=== PATIENT | female | born 1935 | race Caucasian/White ===

== ENCOUNTER 2017-03-22 13:43 | Emergency (ER) | payer MEDICARE, OTHER ==
[2017-03-22] MEDS ORDERED: Sodium Chloride 0.9% 10 ML Syringe FLUSH PRN (14:05)
[2017-03-22] MEDS ORDERED: Sodium Chloride 0.9% 500 ML IV ONE (14:11)
--- NOTE | 2017-03-22 15:36 | CR ---
Chest: Portable view of the chest was obtained. Comparison: Previous chest x-ray of 08/08/16. Bilateral shoulder prosthesis are seen. Heart size and mediastinum are normal. Lungs are clear with no acute infiltrates. Impression: 1. Incidental findings. Nothing acute is identified on portable chest x-ray. Diagnostic code #2
--- NOTE | 2017-03-22 15:36 | CT ---
Head CT Technique: Multiple axial sections through the brain were obtained. Intravenous contrast was not utilized. Comparison: Previous MRI brain dated 10/26/[address] study of 08/08/16 is also available. Findings: Ventricles along with basal cisterns and sulci over the convexities appear within normal limits for the patient's age. Old lacunar infarct is again noted within the right basal ganglia. No other abnormal parenchymal densities are seen. No evidence of intracranial hemorrhage. No midline shift or mass effect is seen. Bone window settings were reviewed which shows the visualized sinuses to appear clear. No acute calvarial abnormality is appreciated. Impression: 1. Old lacunar infarct which is stable from prior studies within the right basal ganglia. 2. No acute intracranial abnormality is appreciated. Diagnostic code #2
--- NOTE | 2017-03-22 17:15 | EDM.PDOC ---
ED HPI GENERAL MEDICAL PROBLEM - General Chief Complaint: Neuro Symptoms/Deficits Stated Complaint: CONFUSED Time Seen by Provider: 03/22/17 13:58 Source of Information: Reports: Patient, Family, RN Notes Reviewed - History of Present Illness INITIAL COMMENTS - FREE TEXT/NARRATIVE: 81 year old female brought in by family today for evaluation of "altered mental status" She does have hx of alzheimer's disease and also of a TIA this past spring several months ago. Today when family came to check on her this morning about 4 hours ago she was less alert, more of a blank stare than usual, would answer questions but would take her longer to do that and speech "not as spontaneous as usual" The patient herself has no concerns or awareness of anything being wrong today. No chest pain, abd pain, dyspnea, nausea, [place] or other sx that she is aware of. There has been no focal weakness, no expressive aphasia, speech is clear, just not as spontaneous as usual. Headache Pain Score (Numeric/FACES): 3 - Related Data Allergies Allergy/AdvReac Type Severity Reaction Status Date / Time dexamethasone [From TobraDex] Allergy Mild Cannot Verified 03/22/17 13:58 Remember tobramycin [From TobraDex] Allergy Mild Cannot Verified 03/22/17 13:58 Remember amlodipine besylate AdvReac Mild Muscle Verified 03/22/17 13:58 [From Lotrel] Weakness benazepril HCl [From Lotrel] AdvReac Mild Muscle Verified 03/22/17 13:58 Weakness ezetimibe [From Zetia] AdvReac Mild Muscle Verified 03/22/17 13:58 Weakness pravastatin sodium AdvReac Mild Muscle Verified 03/22/17 13:58 [From Pravachol] Weakness rosuvastatin calcium AdvReac Mild Muscle Verified 03/22/17 13:58 [From Crestor] Weakness simvastatin [From Zocor] AdvReac Mild Muscle Verified 03/22/17 13:58 Weakness Home Meds: Home Meds Calcium Carbonate [Calcium] 2 tab PO DAILY 05/05/15 [History] Donepezil [Aricept] 5 mg PO BEDTIME 05/05/15 [History] Hydrochlorothiazide 12.5 mg PO DAILY 05/05/15 [History] Multivitamins 1 tab PO DAILY 05/05/15 [History] metFORMIN [Glucophage] 1,000 mg PO BIDMEALS 05/05/15 [History] Sertraline [Zoloft] 50 mg PO DAILY tablet 05/07/15 [Rx] Aspirin 1 tab PO BID 08/08/16 [History] Losartan [Cozaar] 25 mg PO DAILY 08/08/16 [History] Meloxicam [Mobic] 15 mg PO BID PRN 08/08/16 [History] Metoprolol Succinate [Toprol XL] 50 mg PO BID 08/08/16 [History] Past Medical History HEENT History: Reports: Cataract, Impaired Vision Other HEENT History: 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 Cardiovascular History: Reports: Afib, Hypertension Other Cardiovascular History: pt famly reports that afib occured 27 years ago and has not had a problem since. Other Respiratory History: Positive Orthopnea - Moderate snoring Gastrointestinal History: Reports: Diverticulosis Other Gastrointestinal History: diverticulosis Musculoskeletal History: Reports: Osteoarthritis (hands, shoulders) Neurological History: Reports: Other (See Below) Psychiatric History: Reports: Dementia Endocrine/Metabolic History: Reports: Diabetes, Type II Oncologic (Cancer) History: Reports: Breast - Past Surgical History HEENT Surgical History: Reports: Cataract Surgery Musculoskeletal Surgical History: Reports: Shoulder Replacement Oncologic Surgical History: Reports: Mastectomy Social & Family History - Family History Family Medical History: Noncontributory - Tobacco Use Smoking Status *Q: Never Smoker Years of Tobacco use: 2 Used Tobacco, but Quit: No Second Hand Smoke Exposure: No - Caffeine Use Caffeine Use: Reports: Coffee - Alcohol Use Days Per Week of Alcohol Use: 1 Number of Drinks Per Day: 1 Total Drinks Per Week: 1 - Recreational Drug Use Recreational Drug Use: No - Living Situation & Occupation Living situation: Reports: , Alone Occupation: Retired ED ROS GENERAL - Review of Systems Review Of Systems: See Below Constitutional: Reports: Fatigue. Denies: Fever, Chills HEENT: Denies: Throat Pain Respiratory: Denies: Shortness of Breath, Pleuritic Chest Pain, Cough Cardiovascular: Denies: Chest Pain GI/Abdominal: Denies: Abdominal Pain, Diarrhea, Nausea, Vomiting : Reports: No Symptoms Musculoskeletal: Denies: Back Pain Skin: Reports: No Symptoms Neurological: Reports: Change in Speech (speech less spontaneous than usual). Denies: Dizziness, Headache, Numbness, Tingling, Trouble Speaking, Difficulty Walking, Weakness ED EXAM, NEURO - Physical Exam Exam: See Below General Appearance: Alert, No Apparent Distress Eye Exam: Bilateral Eye: PERRL Throat/Mouth: Normal Inspection, Normal Oropharynx Head Exam: Atraumatic. No: Facial Swelling Neck: Supple, Full Range of Motion, Other (no JVD) Respiratory/Chest: No Respiratory Distress, Lungs Clear, Normal Breath Sounds Cardiovascular: Regular Rate, Rhythm GI/Abdominal: Soft, Non-Tender. No: Guarding, Rebound Neurological: Alert, No Motor/Sensory Deficits (no focal weakness, no facial droop), Other (manager long term care memory is good, short term memory mildly impaired, speech is spontaneous here in the ED, answering simple questions appropriate, speech is not slurred, easy to understand) Extremities: Normal Inspection, Normal Range of Motion. No: Pedal Edema, Leg Pain Skin Exam: Warm, Dry, Normal Color, No Rash EKG INTERPRETATION EKG Date: 03/22/17 Rhythm: NSR [place]: Normal P-Wave: Present QRS: Normal ST-T: Normal Course - Vital Signs Last Recorded V/S: Last Vital Signs Temp 98.5 F 03/22/17 13:50 Pulse 84 03/22/17 17:25 Resp 16 03/22/17 17:25 BP 165/69 H 03/22/17 17:25 Pulse Ox 94 L 03/22/17 17:25 - Orders/Labs/Meds Orders: Active Orders 24 hr Category Date Time Status EKG 12 Lead [EKG Documentation Completion] [RC] STAT Care 03/22/17 14:06 Active Insert Coulter Catheter [Insert Urinary Catheter] [OM.PC] Care 03/22/17 15:35 Ordered Stat POC Glucose [Blood Glucose Check, Bedside] [RC] ONETIME Care 03/22/17 14:06 Active Peripheral IV Care [RC] . DIRECTED Care 03/22/17 14:07 Active Urinary Catheter Assessment [RC] ASDIRECTED Care 03/22/17 15:35 Active Sodium Chloride 0.9% [Saline Flush] Med 03/22/17 14:05 Active 10 ml FLUSH ASDIRECTED PRN Peripheral IV Insertion Adult [OM.PC] Stat Oth 03/22/17 14:07 Ordered Medication Orders Sodium Chloride (Saline Flush) 10 ml FLUSH ASDIRECTED PRN PRN Reason: Keep Vein Open Last Admin: 03/22/17 15:05 Dose: 10 ml Labs: Laboratory Tests 03/22/17 03/22/17 03/22/17 Range/Units 14:12 14:12 14:12 WBC 6.76 (3.98-10.04) K/mm3 RBC 3.76 L (3.98-5.22) M/mm3 Hgb 11.0 L (11.2-15.7) gm/L Hct 33.1 L (34.1-44.9) % MCV 88.0 (79.4-94.8) fl MCH 29.3 (25.6-32.2) pg MCHC 33.2 (32.2-35.5) g/dl RDW Std Deviation 42.3 (36.4-46.3) fL Plt Count 368 (182-369) K/mm3 MPV 8.1 L (9.4-12.3) fl Neut % (Auto) 75.1 H (34.0-71.1) % Lymph % (Auto) 16.3 L (19.3-51.7) % [place] % (Auto) 7.7 (4.7-12.5) % Eos % (Auto) 0.3 L (0.7-5.8) Baso % (Auto) 0.3 (0.1-1.2) % Neut # (Auto) 5.08 (1.56-6.13) K/mm3 Lymph # (Auto) 1.10 L (1.18-3.74) K/mm3 [place] # (Auto) 0.52 H (0.24-0.36) K/mm3 Eos # (Auto) 0.02 L (0.04-0.36) K/mm3 Baso # (Auto) 0.02 (0.01-0.08) K/mm3 Sodium 133 L (136-145) mEq/L Potassium 3.7 (3.5-5.1) mEq/L Chloride 95 L (98-107) mEq/L Carbon Dioxide 29 (21-32) mEq/L Anion Gap 12.7 (5-15) BUN 21 H (7-18) mg/dL Creatinine 1.2 H (0.55-1.02) mg/dL Est Cr Clr Drug Dosing TNP Estimated GFR (MDRD) 43 (>60) mL/min BUN/Creatinine Ratio 17.5 (14-18) Glucose 134 H (83-115) mg/dL POC Glucose 124 H (83-110) mg/dL Calcium 9.9 (8.5-10.1) mg/dL Total Bilirubin 0.6 (0.2-1.0) mg/dL AST 20 (15-37) U/L ALT 23 (14-59) U/L Alkaline Phosphatase 50 (46-116) U/L Troponin I < 0.017 (0.00-0.056) ng/mL Total Protein 7.4 (6.4-8.2) g/dl Albumin 4.0 (3.4-5.0) g/dl Globulin 3.4 gm/dL Albumin/Globulin Ratio 1.2 (1-2) Urine Color (Yellow) Urine Appearance (Clear) Urine pH (5.0-8.0) Ur Specific [place] (1.005-1.030) Urine Protein (Negative) Urine Glucose (UA) (Negative) Urine Ketones (Negative) Urine Occult Blood (Negative) Urine Nitrite (Negative) Urine Bilirubin (Negative) Urine Urobilinogen (0.2-1.0) Ur Leukocyte Esterase (Negative) Urine RBC (0-5) /hpf Urine WBC (0-5) /hpf Ur Epithelial Cells (0-5) /hpf Urine Bacteria (FEW) /hpf Hyaline Casts (0-5) /lpf Urine Mucus (FEW) /hpf 03/22/17 Range/Units 15:40 WBC (3.98-10.04) K/mm3 RBC (3.98-5.22) M/mm3 Hgb (11.2-15.7) gm/L Hct (34.1-44.9) % MCV (79.4-94.8) fl MCH (25.6-32.2) pg MCHC (32.2-35.5) g/dl RDW Std Deviation (36.4-46.3) fL Plt Count (182-369) K/mm3 MPV (9.4-12.3) fl Neut % (Auto) (34.0-71.1) % Lymph % (Auto) (19.3-51.7) % [place] % (Auto) (4.7-12.5) % Eos % (Auto) (0.7-5.8) Baso % (Auto) (0.1-1.2) % Neut # (Auto) (1.56-6.13) K/mm3 Lymph # (Auto) (1.18-3.74) K/mm3 [place] # (Auto) (0.24-0.36) K/mm3 Eos # (Auto) (0.04-0.36) K/mm3 Baso # (Auto) (0.01-0.08) K/mm3 Sodium (136-145) mEq/L Potassium (3.5-5.1) mEq/L Chloride (98-107) mEq/L Carbon Dioxide (21-32) mEq/L Anion Gap (5-15) BUN (7-18) mg/dL Creatinine (0.55-1.02) mg/dL Est Cr Clr Drug Dosing Estimated GFR (MDRD) (>60) mL/min BUN/Creatinine Ratio (14-18) Glucose (83-115) mg/dL POC Glucose (83-110) mg/dL Calcium (8.5-10.1) mg/dL Total Bilirubin (0.2-1.0) mg/dL AST (15-37) U/L ALT (14-59) U/L Alkaline Phosphatase (46-116) U/L Troponin I (0.00-0.056) ng/mL Total Protein (6.4-8.2) g/dl Albumin (3.4-5.0) g/dl Globulin gm/dL Albumin/Globulin Ratio (1-2) Urine Color Yellow (Yellow) Urine Appearance Clear (Clear) Urine pH 6.0 (5.0-8.0) Ur Specific [place] 1.025 (1.005-1.030) Urine Protein Negative (Negative) Urine Glucose (UA) Negative (Negative) Urine Ketones Negative (Negative) Urine Occult Blood Negative (Negative) Urine Nitrite Negative (Negative) Urine Bilirubin Negative (Negative) Urine Urobilinogen 0.2 (0.2-1.0) Ur Leukocyte Esterase Negative (Negative) Urine RBC 0-5 (0-5) /hpf Urine WBC Not seen (0-5) /hpf Ur Epithelial Cells 0-5 (0-5) /hpf Urine Bacteria Not seen (FEW) /hpf Hyaline Casts 0-5 (0-5) /lpf Urine Mucus Not seen (FEW) /hpf Meds: Medications Generic Name Dose Route Start Last Admin Trade Name Frerahul PRN Reason Stop Dose Admin Sodium Chloride 10 ml 03/22/17 14:05 03/22/17 15:05 Saline Flush FLUSH 10 ml ASDIRECTED PRN Administration Keep Vein Open Discontinued Medications Generic Name Dose Route Start Last Admin Trade Name Nadir PRN Reason Stop Dose Admin Sodium Chloride 500 mls @ 999 mls/hr 03/22/17 14:11 03/22/17 15:09 Normal Saline IV 03/22/17 14:41 999 mls/hr .BOLUS ONE Administration - Re-Assessments/Exams Free Text/Narrative Re-Assessment/Exam: 03/22/17 17:[address], old lacunar visible present on prior studies, see Radiology report for details. labs are good, hgb 11, improved from 10 post op shoulder surgery a few wks ago. She is not currently taking pain pills. No other new meds to account for current sx. We did check a cath Ua to check for UTI and that was good. At time of discharge and even at time of initial eval her speech was quite good and spontaneous. Not clear if she did suffer very mild TIA or maybe just having an off day or morning in terms of her Alzheimer's disease. I am not going to make any adjustments to her meds at this time. she already is taking aspirin 81 mg twice daily. Discharge instr. as documented. Departure - Departure Time of Disposition: 17:13 Disposition: Home, Self-Care 01 Clinical Impression: Altered mental status Qualifiers: Altered mental status type: unspecified Qualified Code(s): R41.82 - Altered mental status, unspecified - Discharge Information Instructions: Confusion Referrals: Matthew Rodriguez MD [Primary Care Provider] - Forms: ED Department Discharge Additional Instructions: continue current medications for now, drink plenty of water to maintain good hydration, see Dr Craven as soon as possible this week for recheck, further treatment as needed, return to ED if symptoms worsening in any way. - My Orders Last 24 Hours: My Active Orders 03/22/17 14:05 Sodium Chloride 0.9% [Saline Flush] 10 ml FLUSH ASDIRECTED PRN 03/22/17 14:06 EKG 12 Lead [EKG Documentation Completion] [RC] STAT POC Glucose [Blood Glucose Check, Bedside] [RC] ONETIME 03/22/17 14:07 Peripheral IV Care [RC] . DIRECTED Peripheral IV Insertion Adult [OM.PC] Stat 03/22/17 15:35 Insert Coulter Catheter [Insert Urinary Catheter] [OM.PC] Stat Urinary Catheter Assessment [RC] ASDIRECTED - Assessment/Plan Last 24 Hours: My Active Orders 03/22/17 14:05 Sodium Chloride 0.9% [Saline Flush] 10 ml FLUSH ASDIRECTED PRN 03/22/17 14:06 EKG 12 Lead [EKG Documentation Completion] [RC] STAT POC Glucose [Blood Glucose Check, Bedside] [RC] ONETIME 03/22/17 14:07 Peripheral IV Care [RC] . DIRECTED Peripheral IV Insertion Adult [OM.PC] Stat 03/22/17 15:35 Insert Coulter Catheter [Insert Urinary Catheter] [OM.PC] Stat Urinary Catheter Assessment [RC] ASDIRECTED
[2017-03-22 17:31] VITALS: BP 165/69
== END 2017-03-22 17:25 | disposition home or self-care (01) ==
LOC: JD.ED 13:43
DX: R41.82 Altered mental status, unspecified (principal); I10 Essential (primary) hypertension; I48.91 Unspecified atrial fibrillation; M19.042 Primary osteoarthritis, left hand; M19.041 Primary osteoarthritis, right hand; M19.012 Primary osteoarthritis, left shoulder; M19.011 Primary osteoarthritis, right shoulder; F03.90 Unspecified dementia, unspecified severity, without behavioral disturbance, psychotic disturbance, mood disturbance, and anxiety; E11.9 Type 2 diabetes mellitus without complications; Z85.3 Personal history of malignant neoplasm of breast; Z98.49 Cataract extraction status, unspecified eye; Z96.612 Presence of left artificial shoulder joint; Z90.10 Acquired absence of unspecified breast and nipple; Z79.84 Long term (current) use of oral hypoglycemic drugs; Z79.899 Other long term (current) drug therapy; Z88.8 Allergy status to other drugs, medicaments and biological substances; Z88.1 Allergy status to other antibiotic agents
CPT/HCPCS: 36415; 70450; 71010; 80053; 81001; 82962; 84484; 85025; 93005; 96360; 99285; J7040; J7050; P9612; 99284

== ENCOUNTER 2017-11-10 14:08 | Emergency (ER) | payer MEDICARE, OTHER ==
[2017-11-10 14:19] VITALS: BP 152/68
--- NOTE | 2017-11-10 15:14 | CT ---
Head CT Technique: Multiple axial sections through the brain were obtained. Intravenous contrast was not utilized. Comparison: Prior head CT exam of 03/22/17. Findings: Ventricles along with basal cisterns and sulci over convexities are mildly prominent. Diminished density is noted within the periventricular white matter compatible with small vessel ischemic demyelination change. Old lacunar infarcts are noted within the basal ganglia on both sides. No other abnormal parenchymal densities are seen. No evidence of intracranial hemorrhage. No midline shift or mass effect is seen. Atherosclerotic calcification is seen within the carotid siphon. Bone window settings were reviewed which shows the visualized sinuses to appear clear. No acute calvarial abnormality is identified. Impression: 1. Senescent change as noted above. 2. No acute intracranial abnormality is identified on noncontrast head CT exam. Diagnostic code #2
--- NOTE | 2017-11-10 16:03 | EDM.PDOC ---
ED HPI GENERAL MEDICAL PROBLEM - General Chief Complaint: Neurological Problem Stated Complaint: CONFUSION Time Seen by Provider: 11/10/17 14:30 Source of Information: Reports: Patient, Family, RN Notes Reviewed - History of Present Illness INITIAL COMMENTS - FREE TEXT/NARRATIVE: 82-year-old female comes in with symptoms of confusion. Family state that she is been sending out text messages today that just haven't made any sense. He seems much more confused than usual. She does live alone, family members and others do check on her very frequently. When someone went to check on her earlier today she did not respond to a text message to open her door. She is very hard of hearing so does do a lot of her normal communication with "texting ". On arrival to ED she continues to be somewhat confused. She does answer simple questions, cooperative with exam. She denies chest or abdominal pain. There is no report of recent vomiting or diarrhea. No recent report of cough fever or chills. - Related Data Allergies Allergy/AdvReac Type Severity Reaction Status Date / Time dexamethasone [From TobraDex] Allergy Mild Cannot Verified 11/10/17 14:19 Remember tobramycin [From TobraDex] Allergy Mild Cannot Verified 11/10/17 14:19 Remember amlodipine besylate AdvReac Mild Muscle Verified 11/10/17 14:19 [From Lotrel] Weakness benazepril HCl [From Lotrel] AdvReac Mild Muscle Verified 11/10/17 14:19 Weakness ezetimibe [From Zetia] AdvReac Mild Muscle Verified 11/10/17 14:19 Weakness pravastatin sodium AdvReac Mild Muscle Verified 11/10/17 14:19 [From Pravachol] Weakness rosuvastatin calcium AdvReac Mild Muscle Verified 11/10/17 14:19 [From Crestor] Weakness simvastatin [From Zocor] AdvReac Mild Muscle Verified 11/10/17 14:19 Weakness Home Meds: Home Meds Calcium Carbonate [Calcium] 2 tab PO DAILY 05/05/15 [History] Donepezil [Aricept] 5 mg PO BEDTIME 05/05/15 [History] Hydrochlorothiazide 12.5 mg PO DAILY 05/05/15 [History] Multivitamins 1 tab PO DAILY 05/05/15 [History] metFORMIN [Glucophage] 1,000 mg PO BIDMEALS 05/05/15 [History] Sertraline [Zoloft] 50 mg PO DAILY tablet 05/07/15 [Rx] Aspirin 1 tab PO BID 08/08/16 [History] Losartan [Cozaar] 25 mg PO DAILY 08/08/16 [History] Meloxicam [Mobic] 15 mg PO BID PRN 08/08/16 [History] Metoprolol Succinate [Toprol XL] 50 mg PO BID 08/08/16 [History] Ascorbic Acid [Acerola C] 500 mg PO DAILY 11/10/17 [History] Ciprofloxacin HCl [Cipro] 500 mg PO BID #14 tablet 11/10/17 [Rx] Clopidogrel Bisulfate [Plavix] 75 mg PO DAILY 11/10/17 [History] Past Medical History HEENT History: Reports: Cataract, Impaired Vision Other HEENT History: 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 Cardiovascular History: Reports: Afib, Hypertension Other Cardiovascular History: pt famly reports that afib occured 27 years ago and has not had a problem since. Other Respiratory History: Positive Orthopnea - Moderate snoring Gastrointestinal History: Reports: Diverticulosis Other Gastrointestinal History: diverticulosis Musculoskeletal History: Reports: Osteoarthritis (hands, shoulders) Neurological History: Reports: Other (See Below) Psychiatric History: Reports: Dementia Endocrine/Metabolic History: Reports: Diabetes, Type II Oncologic (Cancer) History: Reports: Breast - Past Surgical History HEENT Surgical History: Reports: Cataract Surgery Musculoskeletal Surgical History: Reports: Shoulder Replacement Oncologic Surgical History: Reports: Mastectomy Social & Family History - Family History Family Medical History: Noncontributory - Tobacco Use Smoking Status *Q: Never Smoker Years of Tobacco use: 2 Used Tobacco, but Quit: No Second Hand Smoke Exposure: No - Caffeine Use Caffeine Use: Reports: None - Alcohol Use Days Per Week of Alcohol Use: 1 Number of Drinks Per Day: 1 Total Drinks Per Week: 1 - Recreational Drug Use Recreational Drug Use: No - Living Situation & Occupation Living situation: Reports: , Alone Occupation: Retired ED ROS GENERAL - Review of Systems Review Of Systems: See Below Constitutional: Denies: Fever, Chills HEENT: Denies: Throat Pain Respiratory: Denies: Shortness of Breath, Cough Cardiovascular: Denies: Chest Pain GI/Abdominal: Denies: Abdominal Pain, Diarrhea, Nausea, Vomiting Musculoskeletal: Denies: Back Pain Neurological: Reports: Confusion. Denies: Trouble Speaking, Weakness - Physical Exam Exam: See Below General Appearance: No Apparent Distress Eye Exam: Bilateral Eye: PERRL Throat/Mouth: Normal Inspection, Normal Oropharynx Head Exam: Atraumatic. No: Facial Swelling Neck: Supple, Full Range of Motion Respiratory/Chest: No Respiratory Distress, Lungs Clear, Normal Breath Sounds Cardiovascular: Regular Rate, Rhythm GI/Abdominal: Soft, Non-Tender. No: Guarding Neuro Exam (Abbreviated): Alert, No Motor/Sensory Deficits, Confused (Mild to moderate confusion, she does obey simple commands, she can state the name of her children and she does know where she is at but has no idea for date, month, or year. She cannot tell me her birthdate at time of my exam. She is not been very talkative while here in the ED which children state is also "unusual for her ".) Course - Vital Signs Last Recorded V/S: Last Vital Signs Temp 99.4 F 11/10/17 14:15 Pulse 79 11/10/17 14:15 Resp 18 11/10/17 14:15 BP 152/68 H 11/10/17 14:15 Pulse Ox 93 L 11/10/17 14:15 - Orders/Labs/Meds Orders: Active Orders 24 hr Category Date Time Status EKG 12 Lead [EKG Documentation Completion] [RC] STAT Care 11/10/17 14:51 Active Labs: Laboratory Tests 11/10/17 11/10/17 11/10/17 Range/Units 15:07 15:07 15:35 WBC 10.73 H (3.98-10.04) K/mm3 RBC 4.41 (3.98-5.22) M/mm3 Hgb 12.8 (11.2-15.7) gm/L Hct 38.0 (34.1-44.9) % MCV 86.2 (79.4-94.8) fl MCH 29.0 (25.6-32.2) pg MCHC 33.7 (32.2-35.5) g/dl RDW Std Deviation 40.0 (36.4-46.3) fL Plt Count 271 (182-369) K/mm3 MPV 8.5 L (9.4-12.3) fl Neut % (Auto) 85.8 H (34.0-71.1) % Lymph % (Auto) 8.9 L (19.3-51.7) % [place] % (Auto) 4.9 (4.7-12.5) % Eos % (Auto) 0 L (0.7-5.8) Baso % (Auto) 0.1 (0.1-1.2) % Neut # (Auto) 9.21 H (1.56-6.13) K/mm3 Lymph # (Auto) 0.95 L (1.18-3.74) K/mm3 [place] # (Auto) 0.53 H (0.24-0.36) K/mm3 Eos # (Auto) 0.00 L (0.04-0.36) K/mm3 Baso # (Auto) 0.01 (0.01-0.08) K/mm3 Manual Slide Review Abnormal smear Sodium 137 (136-145) mEq/L Potassium 4.0 (3.5-5.1) mEq/L Chloride 98 (98-107) mEq/L Carbon Dioxide 27 (21-32) mEq/L Anion Gap 16.0 H (5-15) BUN 18 (7-18) mg/dL Creatinine 1.2 H (0.55-1.02) mg/dL Est Cr Clr Drug Dosing 29.57 mL/min Estimated GFR (MDRD) 43 (>60) mL/min BUN/Creatinine Ratio 15.0 (14-18) Glucose 134 H (83-115) mg/dL Calcium 10.0 (8.5-10.1) mg/dL Total Bilirubin 0.8 (0.2-1.0) mg/dL AST 23 (15-37) U/L ALT 27 (14-59) U/L Alkaline Phosphatase 50 (46-116) U/L Total Protein 7.5 (6.4-8.2) g/dl Albumin 4.2 (3.4-5.0) g/dl Globulin 3.3 gm/dL Albumin/Globulin Ratio 1.3 (1-2) Urine Color Dark yellow (Yellow) Urine Appearance Slt cloudy H (Clear) Urine pH 6.0 (5.0-8.0) Ur Specific [place] > or = 1.030 (1.005-1.030) Urine Protein 1+ H (Negative) Urine Glucose (UA) Negative (Negative) Urine Ketones Negative (Negative) Urine Occult Blood Negative (Negative) Urine Nitrite Negative (Negative) Urine Bilirubin Negative (Negative) Urine Urobilinogen 0.2 (0.2-1.0) Ur Leukocyte Esterase 1+ H (Negative) Urine RBC 0-5 (0-5) /hpf Urine WBC 0-5 (0-5) /hpf Ur Epithelial Cells 0-5 (0-5) /hpf Urine Bacteria Few (FEW) /hpf Urine Mucus Few (FEW) /hpf - Re-Assessments/Exams Free Text/Narrative Re-Assessment/Exam: 11/10/17 16:19. Confusion she presented with initially about 1-1/2-2 hours ago is gone. Family states that she is back to baseline. She can now tell me her birthdate. More spontaneous with her speech. Labs show what appears to be a mild UTI, leukocyte positive on the dipstick. We'll treat with Cipro 500 mg twice a day for 1 week. Family states that there is mild baseline confusion that they are aware of. Discharge instructions as documented. Departure - Departure Time of Disposition: 16:17 Disposition: Home, Self-Care 01 Condition: Fair Clinical Impression: Confusion UTI (urinary tract infection) Qualifiers: Urinary tract infection type: acute cystitis Hematuria presence: without hematuria Qualified Code(s): N30.00 - Acute cystitis without hematuria - Discharge Information Prescriptions: Ciprofloxacin HCl [Cipro] 500 mg PO BID #14 tablet Referrals: Matthew Rodriguez MD [Primary Care Provider] - Forms: ED Department Discharge Additional Instructions: Drink plenty of water, Cipro antibiotic 500 mg twice daily for 1 week, continue other current medications as prescribed, follow-up clinic as needed if symptoms not continuing to resolve as expected, return to ED as needed if symptoms worsening in any way. - My Orders Last 24 Hours: My Active Orders 11/10/17 14:51 EKG 12 Lead [EKG Documentation Completion] [RC] STAT - Assessment/Plan Last 24 Hours: My Active Orders 11/10/17 14:51 EKG 12 Lead [EKG Documentation Completion] [RC] STAT
== END 2017-11-10 16:25 | disposition home or self-care (01) ==
LOC: JD.ED 14:08
DX: R41.0 Disorientation, unspecified (principal); N30.00 Acute cystitis without hematuria; I10 Essential (primary) hypertension; E11.9 Type 2 diabetes mellitus without complications; I48.91 Unspecified atrial fibrillation; Z88.8 Allergy status to other drugs, medicaments and biological substances; Z88.1 Allergy status to other antibiotic agents; Z79.899 Other long term (current) drug therapy; Z79.84 Long term (current) use of oral hypoglycemic drugs; Z79.82 Long term (current) use of aspirin
CPT/HCPCS: 36415; 70450; 70450-26; 80053; 81001; 85025; 93005; 99283; 99285-25

== ENCOUNTER 2018-02-01 11:34 | Inpatient (IN) | payer MEDICARE, OTHER ==
--- NOTE | 2018-02-01 11:53 | EDM.PDOC ---
ED HPI GENERAL MEDICAL PROBLEM - General Chief Complaint: Neuro Symptoms/Deficits Stated Complaint: HEADACHE,CONFUSION Time Seen by Provider: 02/01/18 11:50 Source of Information: Reports: Patient, Family History Limitations: Reports: Altered Mental Status - History of Present Illness INITIAL COMMENTS - FREE TEXT/NARRATIVE: The patient is an 82-year-old female with a history of prior TIA at which time major symptom was aphasia, and also hypertension who presents with confusion this morning. She was last completely normal last evening. Daughter states that her neighbors were concerned that she seemed confused this morning so called her. She also felt like her mother seemed disoriented and so brought her to the emergency department. The patient was complaining of a headache at home prior to coming into the emergency department. She otherwise had no specific complaint. Daughter states that she just seemed confused about the day and what was going on. While in the emergency department in triage, the patient had an acute episode of aphasia and a stroke alert was called. At the time that I evaluated the patient she was not able to speak which limits the history. - Related Data Allergies Allergy/AdvReac Type Severity Reaction Status Date / Time dexamethasone [From TobraDex] Allergy Mild Cannot Verified 02/01/18 17:30 Remember tobramycin [From TobraDex] Allergy Mild Cannot Verified 02/01/18 17:30 Remember amlodipine besylate AdvReac Mild Muscle Verified 02/01/18 17:30 [From Lotrel] Weakness benazepril HCl [From Lotrel] AdvReac Mild Muscle Verified 02/01/18 17:30 Weakness ezetimibe [From Zetia] AdvReac Mild Muscle Verified 02/01/18 17:30 Weakness pravastatin sodium AdvReac Mild Muscle Verified 02/01/18 17:30 [From Pravachol] Weakness rosuvastatin calcium AdvReac Mild Muscle Verified 02/01/18 17:30 [From Crestor] Weakness simvastatin [From Zocor] AdvReac Mild Muscle Verified 02/01/18 17:30 Weakness Home Meds: Home Meds Calcium Carbonate [Calcium] 2 tab PO DAILY 05/05/15 [History] Donepezil [Aricept] 5 mg PO BEDTIME 05/05/15 [History] Hydrochlorothiazide 12.5 mg PO DAILY 05/05/15 [History] Multivitamins 1 tab PO DAILY 05/05/15 [History] metFORMIN [Glucophage] 1,000 mg PO BIDMEALS 05/05/15 [History] Sertraline [Zoloft] 50 mg PO DAILY tablet 05/07/15 [Rx] Losartan [Cozaar] 25 mg PO DAILY 08/08/16 [History] Metoprolol Succinate [Toprol XL] 50 mg PO BID 08/08/16 [History] Ascorbic Acid [Acerola C] 500 mg PO DAILY 11/10/17 [History] Clopidogrel Bisulfate [Plavix] 75 mg PO DAILY 11/10/17 [History] Past Medical History HEENT History: Reports: Cataract, Impaired Vision Other HEENT History: 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 Cardiovascular History: Reports: Afib, Hypertension Other Cardiovascular History: pt famly reports that afib occured 27 years ago and has not had a problem since. Respiratory History: Reports: Other (See Below) Other Respiratory History: Positive Orthopnea - Moderate snoring Gastrointestinal History: Reports: Diverticulosis Other Gastrointestinal History: diverticulosis RN HOME HEALTH History: Reports: Musculoskeletal History: Reports: Osteoarthritis Neurological History: Reports: TIA Psychiatric History: Reports: Dementia Endocrine/Metabolic History: Reports: Diabetes, Type II Oncologic (Cancer) History: Reports: Breast - Past Surgical History HEENT Surgical History: Reports: Cataract Surgery Respiratory Surgical History: Reports: None GI Surgical History: Reports: None Musculoskeletal Surgical History: Reports: Shoulder Replacement Oncologic Surgical History: Reports: Mastectomy Social & Family History - Family History Family Medical History: Noncontributory - Caffeine Use Caffeine Use: Reports: None - Living Situation & Occupation Living situation: Reports: , Alone Occupation: Retired ED ROS GENERAL - Review of Systems Review Of Systems: See Below Constitutional: Reports: Weakness. Denies: Fever HEENT: Denies: Vision Change Respiratory: Denies: Shortness of Breath Cardiovascular: Denies: Chest Pain Endocrine: Reports: No Symptoms GI/Abdominal: Denies: Abdominal Pain : Denies: Dysuria Musculoskeletal: Reports: No Symptoms Skin: Reports: No Symptoms Neurological: Reports: Confusion, Trouble Speaking Psychiatric: Reports: No Symptoms Hematologic/Lymphatic: Reports: No Symptoms ED EXAM, NEURO - Physical Exam Exam: See Below Exam Limited By: No Limitations General Appearance: Alert, WD/WN, No Apparent Distress Eye Exam: Bilateral Eye: Normal Inspection, PERRL Ears: Normal External Exam Nose: Normal Inspection, Normal Mucosa, No Blood Throat/Mouth: Normal Inspection, Normal Teeth, Normal Oropharynx, Normal Voice, No Airway Compromise Head Exam: Atraumatic, Normocephalic Neck: Normal Inspection, Supple, Non-Tender, Full Range of Motion Respiratory/Chest: No Respiratory Distress, Lungs Clear, Normal Breath Sounds, Chest Non-Tender Cardiovascular: Normal Peripheral Pulses, Regular Rate, Rhythm, No Edema, No Murmur GI/Abdominal: Soft, Non-Tender, No Distention. No: Rebound Neurological: Alert, Normal Mood/Affect, Normal Dorsiflexion, CN II-XII Intact, Normal Plantar Flexion, No Motor/Sensory Deficits, Other (+aphasia/not answering questions, appears to understand what I ask but doesn't respond. maintains eye contact but doesn't speak. continues to follow commands. ) Back Exam: Normal Inspection Extremities: Normal Inspection Psychiatric: Normal Affect, Normal Mood Skin Exam: Warm, Dry, Intact, Normal Color, No Rash Course - Vital Signs Last Recorded V/S: Last Vital Signs Temp 37.1 C 02/01/18 16:20 Pulse 73 02/01/18 11:40 Resp 17 02/01/18 17:01 BP 156/83 H 02/01/18 17:01 Pulse Ox 97 02/01/18 17:04 - Orders/Labs/Meds Orders: Active Orders 24 hr Category Date Time Status Peripheral IV Care [RC] Q2HR Care 02/01/18 11:50 Active Echo Comp wo Cont [US] Stat Exams 02/01/18 14:44 Ordered UA W/MICROSCOPIC [URIN] Stat Lab 02/01/18 17:10 Ordered Sodium Chloride 0.9% [Saline Flush] Med 02/01/18 11:50 Active 10 ml FLUSH ASDIRECTED PRN Peripheral IV Insertion Adult [OM.PC] Routine Oth 02/01/18 11:50 Ordered Medication Orders Acetaminophen (Tylenol) 650 mg PO Q4H PRN PRN Reason: Pain (Mild 1-3)/fever Hydrocodone Bitart/Acetaminophen ([place] 325-5 Mg) 1 tab PO Q4H PRN PRN Reason: Pain (moderate 4-6) Albuterol/Ipratropium (Duoneb 3.0-0.5 Mg/3 Ml) 3 ml NEB Q4H PRN PRN Reason: Shortness Of Breath/wheezing Ascorbic Acid (Vitamin C) 500 mg PO DAILY [facility] Aspirin (Halfprin) 81 mg PO BID [facility] Bisacodyl (Dulcolax) 5 mg PO DAILY PRN PRN Reason: Constipation Calcium Carbonate/Glycine (Calcium Carbonate) 1,200 mg PO DAILY [facility] Clopidogrel Bisulfate (Plavix) 75 mg PO DAILY [facility] Docusate Sodium (Colace) 100 mg PO BID PRN PRN Reason: Constipation Donepezil HCl (Aricept) 5 mg PO BEDTIME [facility] Enoxaparin Sodium (Lovenox) 30 mg SUBCUT Q24H [facility] Hydralazine HCl (Apresoline) 20 mg IVPUSH ONETIME PRN PRN Reason: Hypertension Hydrochlorothiazide (Hydrochlorothiazide) 12.5 mg PO DAILY [facility] Last Admin: 02/01/18 17:46 Dose: Hydromorphone HCl (Dilaudid) 0.25 mg IVPUSH Q2H PRN PRN Reason: Pain (severe 7-10) Promethazine HCl 6.25 mg/ (Sodium Chloride) 50.25 mls @ 100 mls/hr IV Q6H PRN PRN Reason: Nausea/Vomiting Insulin Aspart (Novolog) 0 unit SUBCUT QIDACANDBED [facility]; Protocol Losartan Potassium (Cozaar) 25 mg PO DAILY [facility] Last Admin: 02/01/18 17:45 Dose: Magnesium Hydroxide (Milk Of Magnesia) 30 ml PO Q12H PRN PRN Reason: Constipation Magnesium Sulfate (Pharmacy To Dose - Magnesium Replacement) 1 dose .XX ASDIRECTED [facility] Metformin HCl (Glucophage) 1,000 mg PO BIDMEALS [facility] Metoprolol Succinate (Toprol Xl) 50 mg PO BID [facility] Multivitamins (Thera) 1 each PO DAILY [facility] Non-Formulary Medication (Meloxicam) 15 mg PO BID PRN PRN Reason: Pain Polyethylene Glycol (Miralax) 17 gm PO DAILY PRN PRN Reason: Constipation Promethazine HCl (Phenergan) 25 mg PO Q6H PRN PRN Reason: Nausea/Vomiting Senna/Docusate Sodium (Senna Plus) 1 tab PO BID PRN PRN Reason: Constipation Sertraline HCl (Zoloft) 50 mg PO DAILY [facility] Sodium Chloride (Saline Flush) 10 ml FLUSH ASDIRECTED PRN PRN Reason: Keep Vein Open Last Admin: 02/01/18 13:23 Dose: 10 ml Temazepam (Restoril) 7.5 mg PO BEDTIME PRN PRN Reason: Sleep Labs: Laboratory Tests 02/01/18 02/01/18 02/01/18 Range/Units 11:44 12:15 12:15 WBC 10.33 H (3.98-10.04) K/mm3 RBC 4.28 (3.98-5.22) M/mm3 Hgb 12.5 (11.2-15.7) gm/L Hct 36.7 (34.1-44.9) % MCV 85.7 (79.4-94.8) fl MCH 29.2 (25.6-32.2) pg MCHC 34.1 (32.2-35.5) g/dl RDW Std Deviation 39.8 (36.4-46.3) fL Plt Count 271 (182-369) K/mm3 MPV 8.4 L (9.4-12.3) fl Neut % (Auto) 82.2 H (34.0-71.1) % Lymph % (Auto) 11.0 L (19.3-51.7) % [place] % (Auto) 6.5 (4.7-12.5) % Eos % (Auto) 0 L (0.7-5.8) Baso % (Auto) 0.1 (0.1-1.2) % Neut # (Auto) 8.49 H (1.56-6.13) K/mm3 Lymph # (Auto) 1.14 L (1.18-3.74) K/mm3 Daw[place] # (Auto) 0.67 H (0.24-0.36) K/mm3 Eos # (Auto) 0.00 L (0.04-0.36) K/mm3 Baso # (Auto) 0.01 (0.01-0.08) K/mm3 PT 10.4 (9.5-12.1) SECONDS INR 0.95 Sodium (136-145) mEq/L Potassium (3.5-5.1) mEq/L Chloride (98-107) mEq/L Carbon Dioxide (21-32) mEq/L Anion Gap (5-15) BUN (7-18) mg/dL Creatinine (0.55-1.02) mg/dL Est Cr Clr Drug Dosing mL/min Estimated GFR (MDRD) (>60) mL/min BUN/Creatinine Ratio (14-18) Glucose (83-115) mg/dL POC Glucose 111 H (83-110) mg/dL Calcium (8.5-10.1) mg/dL Magnesium (1.8-2.4) mg/dl Total Bilirubin (0.2-1.0) mg/dL AST (15-37) U/L ALT (14-59) U/L Alkaline Phosphatase (46-116) U/L Troponin I (0.00-0.056) ng/mL Total Protein (6.4-8.2) g/dl Albumin (3.4-5.0) g/dl Globulin gm/dL Albumin/Globulin Ratio (1-2) 02/01/18 Range/Units 12:15 WBC (3.98-10.04) K/mm3 RBC (3.98-5.22) M/mm3 Hgb (11.2-15.7) gm/L Hct (34.1-44.9) % MCV (79.4-94.8) fl MCH (25.6-32.2) pg MCHC (32.2-35.5) g/dl RDW Std Deviation (36.4-46.3) fL Plt Count (182-369) K/mm3 MPV (9.4-12.3) fl Neut % (Auto) (34.0-71.1) % Lymph % (Auto) (19.3-51.7) % Daw[place] % (Auto) (4.7-12.5) % Eos % (Auto) (0.7-5.8) Baso % (Auto) (0.1-1.2) % Neut # (Auto) (1.56-6.13) K/mm3 Lymph # (Auto) (1.18-3.74) K/mm3 [place] # (Auto) (0.24-0.36) K/mm3 Eos # (Auto) (0.04-0.36) K/mm3 Baso # (Auto) (0.01-0.08) K/mm3 PT (9.5-12.1) SECONDS INR Sodium 133 L (136-145) mEq/L Potassium 4.3 (3.5-5.1) mEq/L Chloride 95 L (98-107) mEq/L Carbon Dioxide 29 (21-32) mEq/L Anion Gap 13.3 (5-15) BUN 13 (7-18) mg/dL Creatinine 1.1 H (0.55-1.02) mg/dL Est Cr Clr Drug Dosing 35.22 mL/min Estimated GFR (MDRD) 48 (>60) mL/min BUN/Creatinine Ratio 11.8 L (14-18) Glucose 118 H (83-115) mg/dL POC Glucose (83-110) mg/dL Calcium 9.8 (8.5-10.1) mg/dL Magnesium 1.3 L (1.8-2.4) mg/dl Total Bilirubin 1.1 H (0.2-1.0) mg/dL AST 20 (15-37) U/L ALT 25 (14-59) U/L Alkaline Phosphatase 50 (46-116) U/L Troponin I < 0.017 (0.00-0.056) ng/mL Total Protein 7.4 (6.4-8.2) g/dl Albumin 4.0 (3.4-5.0) g/dl Globulin 3.4 gm/dL Albumin/Globulin Ratio 1.2 (1-2) Meds: Medications Generic Name Dose Route Start Last Admin Trade Name Freq PRN Reason Stop Dose Admin Acetaminophen 650 mg 02/01/18 17:03 Tylenol PO Q4H PRN Pain (Mild 1-3)/fever Hydrocodone Bitart/Acetaminophen 1 tab 02/01/18 17:03 [place] 325-5 Mg PO Q4H PRN Pain (moderate 4-6) Albuterol/Ipratropium 3 ml 02/01/18 17:03 Duoneb 3.0-0.5 Mg/3 Ml NEB Q4H PRN Shortness Of Breath/wheezing Ascorbic Acid 500 mg 02/02/18 09:00 Vitamin C PO DAILY [facility] Aspirin 81 mg 02/01/18 21:00 Halfprin PO BID [facility] Bisacodyl 5 mg 02/01/18 17:03 Dulcolax PO DAILY PRN Constipation Calcium Carbonate/Glycine 1,200 mg 02/02/18 09:00 Calcium Carbonate PO DAILY [facility] Clopidogrel Bisulfate 75 mg 02/02/18 09:00 Plavix PO DAILY [facility] Docusate Sodium 100 mg 02/01/18 17:03 Colace PO BID PRN Constipation Donepezil HCl 5 mg 02/02/18 21:00 Aricept PO BEDTIME [facility] Enoxaparin Sodium 30 mg 02/02/18 09:00 Lovenox SUBCUT Q24H [facility] Hydralazine HCl 20 mg 02/01/18 17:43 Apresoline IVPUSH ONETIME PRN Hypertension Hydrochlorothiazide 12.5 mg 02/01/18 17:30 02/01/18 17:46 Hydrochlorothiazide PO Not Given DAILY [facility] Hydromorphone HCl 0.25 mg 02/01/18 17:03 Dilaudid IVPUSH Q2H PRN Pain (severe 7-10) Promethazine HCl 6.25 mg/ 50.25 mls @ 100 mls/hr 02/01/18 17:03 Sodium Chloride IV Q6H PRN Nausea/Vomiting Insulin Aspart 0 unit 02/01/18 22:00 Novolog SUBCUT QIDACANDBED [facility] Protocol Losartan Potassium 25 mg 02/01/18 17:30 02/01/18 17:45 Cozaar PO Not Given DAILY [facility] Magnesium Hydroxide 30 ml 02/01/18 17:03 Milk Of Magnesia PO Q12H PRN Constipation Magnesium Sulfate 1 dose 02/01/18 18:00 Pharmacy To Dose - Magnesium Replacement .XX ASDIRECTED [facility] Metformin HCl 1,000 mg 02/02/18 07:00 Glucophage PO BIDMEALS [facility] Metoprolol Succinate 50 mg 02/01/18 21:00 Toprol Xl PO BID [facility] Multivitamins 1 each 02/02/18 09:00 Thera PO DAILY [facility] Non-Formulary Medication 15 mg 02/01/18 17:19 Meloxicam PO BID PRN Pain Polyethylene Glycol 17 gm 02/01/18 17:03 Miralax PO DAILY PRN Constipation Promethazine HCl 25 mg 02/01/18 17:03 Phenergan PO Q6H PRN Nausea/Vomiting Senna/Docusate Sodium 1 tab 02/01/18 17:03 Senna Plus PO BID PRN Constipation Sertraline HCl 50 mg 02/02/18 09:00 Zoloft PO DAILY [facility] Sodium Chloride 10 ml 02/01/18 11:50 02/01/18 13:23 Saline Flush FLUSH 10 ml ASDIRECTED PRN Administration Keep Vein Open Temazepam 7.5 mg 02/01/18 17:03 Restoril PO BEDTIME PRN Sleep Discontinued Medications Generic Name Dose Route Start Last Admin Trade Name Nadir PRN Reason Stop Dose Admin Enoxaparin Sodium 40 mg 02/02/18 09:00 Lovenox SUBCUT DAILY [facility] Magnesium Sulfate 2 gm/ Premix 50 mls @ 25 mls/hr 02/01/18 13:28 02/01/18 13: 35 IV 02/01/18 15:27 25 mls/hr ONETIME ONE Administration Midazolam HCl 1 mg 02/01/18 15:31 02/01/18 15:35 Versed 1 Mg/Ml IVPUSH 02/01/18 15:32 1 mg ONETIME ONE Administration - Re-Assessments/Exams Free Text/Narrative Re-Assessment/Exam: 02/01/18 18:07 Daughter was at the bedside throughout the patient's emergency stay. She states that this episode of aphasia is very similar to prior episodes of TIAs. By the time the patient returned from the CT scanner, her symptoms had nearly resolved. Upon reevaluation she was able to speak clearly. She also stated that her headache had resolved. Her CT scan was negative for any acute abnormality. Meanwhile, the patient did have an episode of hypoxia during her aphasia. Her oxygen saturations dropped to around 78-80. This was with a good waveform. I witnessed the event. I asked the nurse to put her on oxygen. We also got a chest x-ray. Her chest x-ray didn't show any acute abnormality. Her EKG shows normal sinus rhythm with no evidence of acute ischemia or arrhythmia. She did appear to be breathing normally during this hypoxic episode. It is not clear to me what may have caused that, perhaps the patient was hypoventilating. The patient continued to be at her normal baseline for a couple of hours while in the emergency department and then had a repeat episode of aphasia that was again self-limited. MRI ordered. Discussed with Dr. Teresa who agrees to admit the patient for further care. Departure - Departure Time of Disposition: 18:09 Disposition: Admitted As Inpatient 68 Clinical Impression: Hx of recurrent transient ischemic attacks, Confusion - Discharge Information - My Orders Last 24 Hours: My Active Orders 02/01/18 11:50 Peripheral IV Care [RC] Q2HR Sodium Chloride 0.9% [Saline Flush] 10 ml FLUSH ASDIRECTED PRN Peripheral IV Insertion Adult [OM.PC] Routine 02/01/18 17:10 UA W/MICROSCOPIC [URIN] Stat - Assessment/Plan Last 24 Hours: My Active Orders 02/01/18 11:50 Peripheral IV Care [RC] Q2HR Sodium Chloride 0.9% [Saline Flush] 10 ml FLUSH ASDIRECTED PRN Peripheral IV Insertion Adult [OM.PC] Routine 02/01/18 17:10 UA W/MICROSCOPIC [URIN] Stat
--- NOTE | 2018-02-01 13:03 | CT ---
Head CT Technique: Multiple axial sections through the brain were obtained. Intravenous contrast was not utilized. Comparison: No previous intracranial imaging. Findings: Ventricles along with basal cisterns and sulci over the convexities are mildly prominent. 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 Minimal diminished density is noted within the periventricular white matter compatible with small vessel ischemic demyelination change. No other abnormal parenchymal densities are seen. No evidence of intracranial hemorrhage. No midline shift or mass effect is seen. Mild atherosclerotic calcification seen within the carotid siphon. Bone window settings were reviewed which show no acute calvarial abnormality. Visualized sinuses are clear. Impression: 1. Senescent change as noted above. No acute intracranial abnormality is identified. Diagnostic code #2 I agree with preliminary report issued by [facility] ([facility] preliminary report dictated on 02/01/18, 1:32 PM Central Time)
--- NOTE | 2018-02-01 13:03 | CR ---
Chest: Frontal view of the chest was obtained utilizing portable technique. Comparison: Prior chest x-ray of 03/22/17. Heart size and mediastinum are normal. Lungs are clear. Minimal scoliosis is noted. Bilateral shoulder prosthesis are seen. Impression: 1. Incidental findings. Nothing acute is seen. Diagnostic code #2
[2018-02-01] MEDS: Sodium Chloride 0.9% 10 ML Syringe FLUSH PRN (13:23)
[2018-02-01] MEDS ORDERED: Magnesium Sulfate/Water 2 GM in Premix Bag 1 BAG IV ONE ×2 (13:28→18:15)
--- NOTE | 2018-02-01 14:58 | PCM.HP ---
<Ivonne Squires - Last Filed: 02/01/18 17:52> H&P History of Present Illness - General Date of Service: 02/01/18 Source of Information: Patient, Family, Provider History Limitations: Reports: Other (Mild confusion ) - History of Present Illness Initial Comments - Free Text/Narative: This is an 82 y/o female with PMHx significant for previous TIA, dementia, type 2 DM, afib dx'd 27 years ago with no issues since, HTN, cataracts, b/l POARCH, and diverticulosis who comes in altered mental status. She has had episodes of confusion prior to today with multiple visits to the ED. Most recent ED visit for confusion was in October 2017. Work-up in ED included CBC significant for WBC 10.33. CMP significant for Na 133 , Cl 95, Cr 1.1, eGFR 48, glucose 111. Mg low at 1.3. Troponin <0.017. Head CT ordered in ED and read as senescent changes with no acute intracranial abnormality. CXR ordered in ED and read as nothing acute. MRI ordered in ED and 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, minimal senescent change, no acute abnormalities and stable from prior MRI. 2D echo ordered in ED and are pending. Patient and daughter report that she is usually independent at home. Patient is able to give a vague history of why she is in the hospital, and states she woke up with a headache. Daughter further elaborates by saying that patient's neighbor called her stating that patient was saying she did not feel well. Daughter noticed some confusion and brought her to the ED. Daughter also reports that patient is answering questions but is usually more inquisitive and joking when questions are asked of her. Daughter states cognitive eval has been performed and results were indicative of dementia but not Alzheimers. She is subsequently admitted observation/ICU status. She is a never smoker. She is a full code. PCP is Dr. Matthew Rodriguez. - Related Data Allergies/Adverse Reactions: Allergies Allergy/AdvReac Type Severity Reaction Status Date / Time dexamethasone [From TobraDex] Allergy Mild Cannot Verified 02/01/18 17:30 Remember tobramycin [From TobraDex] Allergy Mild Cannot Verified 02/01/18 17:30 Remember amlodipine besylate AdvReac Mild Muscle Verified 02/01/18 17:30 [From Lotrel] Weakness benazepril HCl [From Lotrel] AdvReac Mild Muscle Verified 02/01/18 17:30 Weakness ezetimibe [From Zetia] AdvReac Mild Muscle Verified 02/01/18 17:30 Weakness pravastatin sodium AdvReac Mild Muscle Verified 02/01/18 17:30 [From Pravachol] Weakness rosuvastatin calcium AdvReac Mild Muscle Verified 02/01/18 17:30 [From Crestor] Weakness simvastatin [From Zocor] AdvReac Mild Muscle Verified 02/01/18 17:30 Weakness Home Medications: Home Meds Calcium Carbonate [Calcium] 2 tab PO DAILY 05/05/15 [History] Donepezil [Aricept] 5 mg PO BEDTIME 05/05/15 [History] Hydrochlorothiazide 12.5 mg PO DAILY 05/05/15 [History] Multivitamins 1 tab PO DAILY 05/05/15 [History] metFORMIN [Glucophage] 1,000 mg PO BIDMEALS 05/05/15 [History] Sertraline [Zoloft] 50 mg PO DAILY tablet 05/07/15 [Rx] Losartan [Cozaar] 25 mg PO DAILY 08/08/16 [History] Metoprolol Succinate [Toprol XL] 50 mg PO BID 08/08/16 [History] Ascorbic Acid [Acerola C] 500 mg PO DAILY 11/10/17 [History] Clopidogrel Bisulfate [Plavix] 75 mg PO DAILY 11/10/17 [History] Past Medical History HEENT History: Reports: Cataract, Impaired Vision Other HEENT History: 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 Cardiovascular History: Reports: Afib, Hypertension Other Cardiovascular History: pt famly reports that afib occured 27 years ago and has not had a problem since. Respiratory History: Reports: Other (See Below) Other Respiratory History: Positive Orthopnea - Moderate snoring Gastrointestinal History: Reports: Diverticulosis Other Gastrointestinal History: diverticulosis [employer] History: Reports: Musculoskeletal History: Reports: Osteoarthritis Neurological History: Reports: TIA Psychiatric History: Reports: Dementia Endocrine/Metabolic History: Reports: Diabetes, Type II Oncologic (Cancer) History: Reports: Breast - Past Surgical History HEENT Surgical History: Reports: Cataract Surgery Respiratory Surgical History: Reports: None GI Surgical History: Reports: None Musculoskeletal Surgical History: Reports: Shoulder Replacement Oncologic Surgical History: Reports: Mastectomy Social & Family History - Family History Family Medical History: Noncontributory - Caffeine Use Caffeine Use: Reports: None - Living Situation & Occupation Living situation: Reports: , Alone Occupation: Retired H&P Review of Systems - Review of Systems: Review Of Systems: See Below Free Text/Narrative: Patient answers questions seemingly appropriately, but daughter reports that patient is usually more inquisitive and joking General: Reports: No Symptoms. Denies: Fever, Weakness HEENT: Reports: No Symptoms. Denies: Headaches, Sore Throat Pulmonary: Reports: No Symptoms. Denies: Shortness of Breath, Cough Cardiovascular: Reports: No Symptoms. Denies: Chest Pain, Palpitations, Lightheadedness Gastrointestinal: Reports: No Symptoms. Denies: Abdominal Pain, Constipation, Diarrhea, Nausea, Vomiting Genitourinary: Reports: No Symptoms. Denies: Dysuria, Frequency, Burning Musculoskeletal: Reports: No Symptoms. Denies: Joint Pain Skin: Reports: No Symptoms. Denies: Cyanosis, Pallor Psychiatric: Reports: No Symptoms, Confusion (per family ). Denies: Depression Neurological: Reports: No Symptoms, Confusion (per family ). Denies: Dizziness , Headache, Numbness, Paresthesia, Tingling Hematologic/Lymphatic: Reports: No Symptoms Immunologic: Reports: No Symptoms Exam - Exam Exam: See Below - Vital Signs Vital Signs: Last Vital Signs Temp 97.0 F 02/01/18 11:40 Pulse 73 02/01/18 11:40 Resp 18 02/01/18 11:40 BP 192/63 H 02/01/18 11:40 Pulse Ox 78 L 02/01/18 11:40 Weight: 64.864 kg - Exam Quality Assessment: Supplemental Oxygen General: Alert, Oriented, Cooperative HEENT: Conjunctiva Clear, EOMI, Mucosa Moist & [place], Pupils Equal, Pupils Reactive Neck: Supple. No: Lymphadenopathy Lungs: Clear to Auscultation, Normal Respiratory Effort Cardiovascular: Regular Rate, Regular Rhythm, Normal S1, Normal S2 GI/Abdominal Exam: Normal Bowel Sounds, Soft, Non-Tender, No Distention (Female) Exam: Deferred Rectal (Female) Exam: Deferred Back Exam: Normal Inspection, Full Range of Motion Extremities: Normal Inspection, Normal Range of Motion, Non-Tender, No Pedal Edema Peripheral Pulses: 1+: Posterior Tibial (L), Posterior Tibial (R), Dorsalis Pedis (L), Dorsalis Pedis (R) Skin: Warm, Dry, Intact Neurological: Cranial Nerves Intact, Strength Equal Bilateral, Normal Speech, Normal Tone Neuro Extensive - Mental Status: Alert, Oriented x3, Normal Mood/Affect, Memory Intact, Other (She answers questions and follows commands but daughter reports patient is usually much more inquisitive and has a sense of humor ) Neuro Extensive - Motor, Sensory, Reflexes: CN II-XII Intact Psychiatric: Alert, Normal Affect, Normal Mood - Patient Data Lab Results Last 24 hrs: Laboratory Results - last 24 hr 02/01/18 02/01/18 02/01/18 Range/Units 11:44 12:15 12:15 WBC 10.33 H (3.98-10.04) K/mm3 RBC 4.28 (3.98-5.22) M/mm3 Hgb 12.5 (11.2-15.7) gm/L Hct 36.7 (34.1-44.9) % MCV 85.7 (79.4-94.8) fl MCH 29.2 (25.6-32.2) pg MCHC 34.1 (32.2-35.5) g/dl RDW Std Deviation 39.8 (36.4-46.3) fL Plt Count 271 (182-369) K/mm3 MPV 8.4 L (9.4-12.3) fl Neut % (Auto) 82.2 H (34.0-71.1) % Lymph % (Auto) 11.0 L (19.3-51.7) % [place] % (Auto) 6.5 (4.7-12.5) % Eos % (Auto) 0 L (0.7-5.8) Baso % (Auto) 0.1 (0.1-1.2) % Neut # (Auto) 8.49 H (1.56-6.13) K/mm3 Lymph # (Auto) 1.14 L (1.18-3.74) K/mm3 [place] # (Auto) 0.67 H (0.24-0.36) K/mm3 Eos # (Auto) 0.00 L (0.04-0.36) K/mm3 Baso # (Auto) 0.01 (0.01-0.08) K/mm3 PT 10.4 (9.5-12.1) SECONDS INR 0.95 Sodium (136-145) mEq/L Potassium (3.5-5.1) mEq/L Chloride (98-107) mEq/L Carbon Dioxide (21-32) mEq/L Anion Gap (5-15) BUN (7-18) mg/dL Creatinine (0.55-1.02) mg/dL Est Cr Clr Drug Dosing mL/min Estimated GFR (MDRD) (>60) mL/min BUN/Creatinine Ratio (14-18) Glucose (83-115) mg/dL POC Glucose 111 H (83-110) mg/dL Calcium (8.5-10.1) mg/dL Magnesium (1.8-2.4) mg/dl Total Bilirubin (0.2-1.0) mg/dL AST (15-37) U/L ALT (14-59) U/L Alkaline Phosphatase (46-116) U/L Troponin I (0.00-0.056) ng/mL Total Protein (6.4-8.2) g/dl Albumin (3.4-5.0) g/dl Globulin gm/dL Albumin/Globulin Ratio (1-2) //18 Range/Units 12:15 WBC (3.98-10.04) K/mm3 RBC (3.98-5.22) M/mm3 Hgb (11.2-15.7) gm/L Hct (34.1-44.9) % MCV (79.4-94.8) fl MCH (25.6-32.2) pg MCHC (32.2-35.5) g/dl RDW Std Deviation (36.4-46.3) fL Plt Count (182-369) K/mm3 MPV (9.4-12.3) fl Neut % (Auto) (34.0-71.1) % Lymph % (Auto) (19.3-51.7) % [place] % (Auto) (4.7-12.5) % Eos % (Auto) (0.7-5.8) Baso % (Auto) (0.1-1.2) % Neut # (Auto) (1.56-6.13) K/mm3 Lymph # (Auto) (1.18-3.74) K/mm3 [place] # (Auto) (0.24-0.36) K/mm3 Eos # (Auto) (0.04-0.36) K/mm3 Baso # (Auto) (0.01-0.08) K/mm3 PT (9.5-12.1) SECONDS INR Sodium 133 L (136-145) mEq/L Potassium 4.3 (3.5-5.1) mEq/L Chloride 95 L (98-107) mEq/L Carbon Dioxide 29 (21-32) mEq/L Anion Gap 13.3 (5-15) BUN 13 (7-18) mg/dL Creatinine 1.1 H (0.55-1.02) mg/dL Est Cr Clr Drug Dosing 35.22 mL/min Estimated GFR (MDRD) 48 (>60) mL/min BUN/Creatinine Ratio 11.8 L (14-18) Glucose 118 H (83-115) mg/dL POC Glucose (83-110) mg/dL Calcium 9.8 (8.5-10.1) mg/dL Magnesium 1.3 L (1.8-2.4) mg/dl Total Bilirubin 1.1 H (0.2-1.0) mg/dL AST 20 (15-37) U/L ALT 25 (14-59) U/L Alkaline Phosphatase 50 (46-116) U/L Troponin I < 0.017 (0.00-0.056) ng/mL Total Protein 7.4 (6.4-8.2) g/dl Albumin 4.0 (3.4-5.0) g/dl Globulin 3.4 gm/dL Albumin/Globulin Ratio 1.2 (1-2) Result Diagrams: 02/01/18 12:15 02/01/18 12:15 Problem List Initiated/Reviewed/Updated: Yes Orders Last 24hrs: Active Orders 24 hr Category Date Time Status EKG 12 Lead [EKG Documentation Completion] [RC] STAT Care 02/01/18 11:50 Active Peripheral IV Care [RC] . DIRECTED Care 02/01/18 11:50 Active Peripheral IV Care [RC] . DIRECTED Care 02/01/18 11:50 Active Echo Comp wo Cont [US] Stat Exams 02/01/18 14:44 Ordered UA W/MICROSCOPIC [URIN] Stat Lab 02/01/18 11:50 Ordered Magnesium Sulfate/Water [Magnesium Sulfate 2 GM in Med 02/01/18 13:28 Active Water 50 ML] 2 gm Premix Bag 1 bag IV ONETIME Sodium Chloride 0.9% [Saline Flush] Med 02/01/18 11:50 Active 10 ml FLUSH ASDIRECTED PRN Peripheral IV Insertion Adult [OM.PC] Routine Oth 02/01/18 11:50 Ordered Medication Orders Magnesium Sulfate 2 gm/ Premix 50 mls @ 25 mls/hr IV ONETIME ONE Stop: 02/01/18 15:27 Last Admin: 02/01/18 13:35 Dose: 25 mls/hr Sodium Chloride (Saline Flush) 10 ml FLUSH ASDIRECTED PRN PRN Reason: Keep Vein Open Last Admin: 02/01/18 13:23 Dose: 10 ml Assessment/Plan Comment:: I/P: Acute: Altered mental status - r/o CVA, TIA - CHADSVASc score 5 --> will order Lovenox 30 mg in daily - Cognitive issues at baseline - MRI 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 and no acute abnormalities and stable from prior MRI - 2D Echo pending - Carotid US in 2017 with minimal plaque - Consult PT/OT - Consult DROP MAN for swallow eval and eval/tx aphasia - Continue Plavix and aspirin - Neuro checks q 1 hr Dementia - Patient has cognitive issues at baseline - Will order Vitamin B12, TSH - Consult [facility] for cognitive eval Hypertension - Elevated in ED 192/63 - Home meds include hydrochlorothiazide 12.5 mg po daily, losartan 25 mg po daily - Will order hydralazine 20 mg IV prn BP > 160/90 - Resume above antihypertensives - Heart healthy diet Hyperglycemia, mild - Glucose 118 in ED - Hx of Type 2 DM - Metformin 1000 mg po BID per home meds - Low dose SSI - Diabetic diet - Monitor Renal insufficiency - Cr 1.1, eGFR 48 in ED - Appears to be close to patient's baseline - Monitor Leukocytosis - WBC 10.33 - UA pending - Monitor Hypomagnesemia - Mg 1.4 in ED - Will replete Chronic: Previous TIA Dementia Type 2 DM Afib dx'd 27 years ago with no issues since (as reported by family) --> she is not on any anticoagulation at this time HTN Cataracts b/l POARCH Diverticulosis Plan: Admitted from ED to ICU status Other orders as indicated above CM/SW for discharge planning Routine AM labs Continue home meds Heart Healthy/Diabetic diet Consult PT/OT Consult DROP MAN for swallow eval, eval/tx aphasia and cognitive eval DVT Prophylaxis: SCDs and Lovenox 30 mg inj daily Ambulate as tolerated Code Status: Full PCP: Dr. Matthew Rodriguez <Gely Teresa - Last Filed: 02/04/18 12:58> H&P History of Present Illness - General Admit Problem/Dx: Admission Diagnosis/Problem Admission Diagnosis/Problem TIA, Transient ischemic attack Exam - Vital Signs Vital Signs: Last Vital Signs Temp 36.8 C 02/04/18 12:00 Pulse 72 02/04/18 08:03 Resp 16 02/04/18 12:00 BP 159/83 H 02/04/18 12:00 Pulse Ox 94 L 02/04/18 12:00 - Patient Data Lab Results Last 24 hrs: Laboratory Results - last 24 hr 02/03/18 02/03/18 02/04/18 Range/Units 17:16 21:36 05:40 WBC 6.74 (3.98-10.04) K/mm3 RBC 4.00 (3.98-5.22) M/mm3 Hgb 11.6 (11.2-15.7) gm/L Hct 34.8 (34.1-44.9) % MCV 87.0 (79.4-94.8) fl MCH 29.0 (25.6-32.2) pg MCHC 33.3 (32.2-35.5) g/dl RDW Std Deviation 39.8 (36.4-46.3) fL Plt Count 260 (182-369) K/mm3 MPV 8.7 L (9.4-12.3) fl Neut % (Auto) 56.1 (34.0-71.1) % Lymph % (Auto) 29.1 (19.3-51.7) % [place] % (Auto) 13.1 H (4.7-12.5) % Eos % (Auto) 1.3 (0.7-5.8) Baso % (Auto) 0.3 (0.1-1.2) % Neut # (Auto) 3.78 (1.56-6.13) K/mm3 Lymph # (Auto) 1.96 (1.18-3.74) K/mm3 [place] # (Auto) 0.88 H (0.24-0.36) K/mm3 Eos # (Auto) 0.09 (0.04-0.36) K/mm3 Baso # (Auto) 0.02 (0.01-0.08) K/mm3 PT (9.5-12.1) SECONDS INR APTT (24-31) SECONDS Sodium (136-145) mEq/L Potassium (3.5-5.1) mEq/L Chloride (98-107) mEq/L Carbon Dioxide (21-32) mEq/L Anion Gap (5-15) BUN (7-18) mg/dL Creatinine (0.55-1.02) mg/dL Est Cr Clr Drug Dosing mL/min Estimated GFR (MDRD) (>60) mL/min BUN/Creatinine Ratio (14-18) Glucose (83-115) mg/dL POC Glucose 166 H 121 H (83-110) mg/dL Calcium (8.5-10.1) mg/dL Magnesium (1.8-2.4) mg/dl 02/04/18 02/04/18 02/04/18 Range/Units 05:40 05:40 05:52 WBC (3.98-10.04) K/mm3 RBC (3.98-5.22) M/mm3 Hgb (11.2-15.7) gm/L Hct (34.1-44.9) % MCV (79.4-94.8) fl MCH (25.6-32.2) pg MCHC (32.2-35.5) g/dl RDW Std Deviation (36.4-46.3) fL Plt Count (182-369) K/mm3 MPV (9.4-12.3) fl Neut % (Auto) (34.0-71.1) % Lymph % (Auto) (19.3-51.7) % [place] % (Auto) (4.7-12.5) % Eos % (Auto) (0.7-5.8) Baso % (Auto) (0.1-1.2) % Neut # (Auto) (1.56-6.13) K/mm3 Lymph # (Auto) (1.18-3.74) K/mm3 [place] # (Auto) (0.24-0.36) K/mm3 Eos # (Auto) (0.04-0.36) K/mm3 Baso # (Auto) (0.01-0.08) K/mm3 PT 9.8 (9.5-12.1) SECONDS INR < 0.93 APTT 25 (24-31) SECONDS Sodium 132 L (136-145) mEq/L Potassium 4.5 (3.5-5.1) mEq/L Chloride 96 L (98-107) mEq/L Carbon Dioxide 29 (21-32) mEq/L Anion Gap 11.5 (5-15) BUN 23 H (7-18) mg/dL Creatinine 1.0 (0.55-1.02) mg/dL Est Cr Clr Drug Dosing 38.75 mL/min Estimated GFR (MDRD) 53 (>60) mL/min BUN/Creatinine Ratio 23.0 H (14-18) Glucose 109 (83-115) mg/dL POC Glucose 115 H (83-110) mg/dL Calcium 9.2 (8.5-10.1) mg/dL Magnesium 1.6 L (1.8-2.4) mg/dl /16/18 Range/Units 12:02 WBC (3.98-10.04) K/mm3 RBC (3.98-5.22) M/mm3 Hgb (11.2-15.7) gm/L Hct (34.1-44.9) % MCV (79.4-94.8) fl MCH (25.6-32.2) pg MCHC (32.2-35.5) g/dl RDW Std Deviation (36.4-46.3) fL Plt Count (182-369) K/mm3 MPV (9.4-12.3) fl Neut % (Auto) (34.0-71.1) % Lymph % (Auto) (19.3-51.7) % [place] % (Auto) (4.7-12.5) % Eos % (Auto) (0.7-5.8) Baso % (Auto) (0.1-1.2) % Neut # (Auto) (1.56-6.13) K/mm3 Lymph # (Auto) (1.18-3.74) K/mm3 [place] # (Auto) (0.24-0.36) K/mm3 Eos # (Auto) (0.04-0.36) K/mm3 Baso # (Auto) (0.01-0.08) K/mm3 PT (9.5-12.1) SECONDS INR APTT (24-31) SECONDS Sodium (136-145) mEq/L Potassium (3.5-5.1) mEq/L Chloride (98-107) mEq/L Carbon Dioxide (21-32) mEq/L Anion Gap (5-15) BUN (7-18) mg/dL Creatinine (0.55-1.02) mg/dL Est Cr Clr Drug Dosing mL/min Estimated GFR (MDRD) (>60) mL/min BUN/Creatinine Ratio (14-18) Glucose (83-115) mg/dL POC Glucose 118 H (83-110) mg/dL Calcium (8.5-10.1) mg/dL Magnesium (1.8-2.4) mg/dl Result Diagrams: 02/04/18 05:40 02/04/18 05:40 [place] Results Last 24 hrs: Microbiology 02/02/18 13:42 Respiratory Virus Panel (PCR) - Final Nasopharyngeal Swab Orders Last 24hrs: Active Orders 24 hr Category Date Time Status Patient Status [ADT] Routine ADT 02/04/18 10:23 Active BASIC METABOLIC PANEL,BMP [CHEM] AM Lab 02/05/18 05:11 Ordered BASIC METABOLIC PANEL,BMP [CHEM] AM Lab 02/06/18 05:11 Ordered CBC WITH AUTO DIFF [HEME] AM Lab 02/05/18 05:11 Ordered CBC WITH AUTO DIFF [HEME] AM Lab 02/06/18 05:11 Ordered INR,PT,PROTHROMBIN TIME [COAG] AM Lab 02/05/18 05:11 Ordered INR,PT,PROTHROMBIN TIME [COAG] AM Lab 02/06/18 05:11 Ordered MAGNESIUM [CHEM] AM Lab 02/05/18 05:11 Ordered MAGNESIUM [CHEM] AM Lab 02/06/18 05:11 Ordered PTT,PARTIAL THROMBOPLSTIN TIME [COAG] AM Lab 02/05/18 05:11 Ordered PTT,PARTIAL THROMBOPLSTIN TIME [COAG] AM Lab 02/06/18 05:11 Ordered Magnesium Sulfate/Water [Magnesium Sulfate 4 GM in Med 02/04/18 09:30 Active Water 100 ML] 4 gm Premix Bag 1 bag IV ONETIME Potassium Chloride/NaCl [Thermotabs] [facility] 02/03/18 21:00 Active 1 each PO BID Medication Orders Acetaminophen (Tylenol) 650 mg PO Q4H PRN PRN Reason: Pain (Mild 1-3)/fever Hydrocodone Bitart/Acetaminophen (Lancing 325-5 Mg) 1 tab PO Q4H PRN PRN Reason: Pain (moderate 4-6) Albuterol/Ipratropium (Duoneb 3.0-0.5 Mg/3 Ml) 3 ml NEB Q4H PRN PRN Reason: Shortness Of Breath/wheezing Ascorbic Acid (Vitamin C) 500 mg PO DAILY [facility] Last Admin: 02/04/18 08:03 Dose: 500 mg Admin: 02/03/18 08:29 Dose: 500 mg Admin: 02/02/18 08:35 Dose: 500 mg Aspirin (Halfprin) 81 mg PO BID [facility] Last Admin: 02/04/18 08:03 Dose: 81 mg Admin: 02/03/18 20:15 Dose: 81 mg Admin: 02/03/18 08:26 Dose: 81 mg Admin: 02/02/18 20:43 Dose: 81 mg Admin: 02/02/18 08:35 Dose: 81 mg Admin: 02/01/18 20:05 Dose: 81 mg Bisacodyl (Dulcolax) 5 mg PO DAILY PRN PRN Reason: Constipation Last Admin: 02/03/18 08:29 Dose: 5 mg Calcium Carbonate/Glycine (Calcium Carbonate) 1,200 mg PO DAILY [facility] Last Admin: 02/04/18 08:04 Dose: 1,200 mg Admin: 02/03/18 08:25 Dose: 1,200 mg Admin: 02/02/18 08:35 Dose: 1,200 mg Clopidogrel Bisulfate (Plavix) 75 mg PO DAILY [facility] Last Admin: 02/04/18 08:03 Dose: 75 mg Admin: 02/03/18 08:28 Dose: 75 mg Admin: 02/02/18 08:35 Dose: 75 mg Docusate Sodium (Colace) 100 mg PO BID PRN PRN Reason: Constipation Donepezil HCl (Aricept) 5 mg PO BEDTIME [facility] Last Admin: 02/03/18 20:19 Dose: 5 mg Admin: 02/02/18 20:42 Dose: 5 mg Enoxaparin Sodium (Lovenox) 40 mg SUBCUT Q24H [facility] Last Admin: 02/04/18 08:02 Dose: 40 mg Admin: 02/03/18 08:27 Dose: 40 mg Admin: 02/02/18 08:36 Dose: 40 mg Gabapentin (Neurontin) 100 mg PO BID [facility] Last Admin: 02/04/18 08:03 Dose: 100 mg Admin: 02/03/18 20:16 Dose: 100 mg Admin: 02/03/18 08:28 Dose: 100 mg Admin: 02/02/18 20:43 Dose: 100 mg Hydralazine HCl (Apresoline) 20 mg IVPUSH ONETIME PRN PRN Reason: Hypertension Hydrochlorothiazide (Hydrochlorothiazide) 12.5 mg PO DAILY [facility] Last Admin: 02/04/18 08:05 Dose: 12.5 mg Admin: 02/03/18 08:26 Dose: 12.5 mg Admin: 02/02/18 08:34 Dose: 12.5 mg Admin: 02/01/18 17:46 Dose: Hydromorphone HCl (Dilaudid) 0.25 mg IVPUSH Q2H PRN PRN Reason: Pain (severe 7-10) Promethazine HCl 6.25 mg/ (Sodium Chloride) 50.25 mls @ 100 mls/hr IV Q6H PRN PRN Reason: Nausea/Vomiting Magnesium Sulfate 4 gm/ Premix 100 mls @ 25 mls/hr IV ONETIME ONE Stop: 02/04/18 13:29 Last Admin: 02/04/18 09:23 Dose: 25 mls/hr Insulin Aspart (Novolog) 0 unit SUBCUT QIDACANDBED [facility]; Protocol Last Admin: 02/04/18 12:07 Dose: Admin: 02/04/18 06:19 Dose: Not Given Admin: 02/03/18 21:40 Dose: Not Given Admin: 02/03/18 17:29 Dose: 1 unit Admin: 02/03/18 10:50 Dose: 1 unit Admin: 02/03/18 06:20 Dose: Not Given Admin: 02/02/18 22:55 Dose: Not Given Admin: 02/02/18 16:50 Dose: Not Given Admin: 02/02/18 12:02 Dose: Not Given Admin: 02/02/18 08:33 Dose: Not Given Admin: 02/01/18 21:31 Dose: Not Given Losartan Potassium (Cozaar) 25 mg PO BID [facility] Last Admin: 02/04/18 08:03 Dose: 25 mg Admin: 02/03/18 20:19 Dose: 25 mg Admin: 02/03/18 08:26 Dose: 25 mg Admin: 02/02/18 20:44 Dose: 25 mg Magnesium Hydroxide (Milk Of Magnesia) 30 ml PO Q12H PRN PRN Reason: Constipation Magnesium Sulfate (Pharmacy To Dose - Magnesium Replacement) 0 dose .XX ASDIRECTED PRN PRN Reason: RX TO WATCH MAG LEVELS. Metformin HCl (Glucophage) 1,000 mg PO BIDMEALS [facility] Last Admin: 02/04/18 06:40 Dose: 1,000 mg Admin: 02/03/18 17:13 Dose: 1,000 mg Admin: 02/03/18 06:40 Dose: 1,000 mg Admin: 02/02/18 16:40 Dose: 1,000 mg Admin: 02/02/18 08:34 Dose: 1,000 mg Metoprolol Succinate (Toprol Xl) 50 mg PO BID [facility] Last Admin: 02/04/18 08:03 Dose: 50 mg Admin: 02/03/18 20:16 Dose: 50 mg Admin: 02/03/18 08:28 Dose: 50 mg Admin: 02/02/18 20:43 Dose: 50 mg Admin: 02/02/18 08:35 Dose: 50 mg Admin: 02/01/18 20:05 Dose: 50 mg Multivitamins (Thera) 1 each PO DAILY [facility] Last Admin: 02/04/18 08:02 Dose: 1 each Admin: 02/03/18 08:28 Dose: 1 each Admin: 02/02/18 08:35 Dose: 1 each Oral Electrolytes (Thermotabs) 1 each PO BID [facility] Stop: 02/04/18 21:01 Last Admin: 02/04/18 08:04 Dose: 1 each Admin: 02/03/18 20:16 Dose: 1 each Meloxicam 15 Mg 0 each PO BID PRN PRN Reason: Pain Polyethylene Glycol (Miralax) 17 gm PO DAILY PRN PRN Reason: Constipation Promethazine HCl (Phenergan) 25 mg PO Q6H PRN PRN Reason: Nausea/Vomiting Senna/Docusate Sodium (Senna Plus) 1 tab PO BID PRN PRN Reason: Constipation Sertraline HCl (Zoloft) 50 mg PO DAILY CHAPARRITA Last Admin: 02/04/18 08:02 Dose: 50 mg Admin: 02/03/18 08:29 Dose: 50 mg Admin: 02/02/18 08:35 Dose: 50 mg Sodium Chloride (Saline Flush) 10 ml FLUSH ASDIRECTED PRN PRN Reason: Keep Vein Open Last Admin: 02/04/18 08:11 Dose: 10 ml Admin: 02/03/18 08:31 Dose: 10 ml Admin: 02/01/18 13:23 Dose: 10 ml Temazepam (Restoril) 7.5 mg PO BEDTIME PRN PRN Reason: Sleep Assessment/Plan Comment:: Complete assessment for CVA/TIA for choice of anticoagulant if appropriate. EMR mentioned A Fib, however in SR/SB. Echo for eval of LA and LVEF.
[2018-02-01] MEDS ORDERED: Midazolam 1 MG/ML 2 ML SDV IVPUSH ONE (15:31)
--- NOTE | 2018-02-01 16:29 | MR ---
MRI brain Technique: T1 sagittal; diffusion, T2, FLAIR and T1 axial; T1 weighted coronal images were obtained. Comparison: Prior head CT study performed earlier on the same day (12 AM) and prior MRI brain of 10/26/16. Limitations: Motion artifact which resulted in multiple attempts in repeat imaging. Findings: Ventricles along with basal cisterns and sulci over the convexities are mildly prominent. Old lacunar infarct is noted within the right basal ganglia which is stable. Minimal areas of increased signal are seen within the periventricular white matter which remains stable from prior MRI compatible with minimal small vessel ischemic demyelination change. No other abnormal areas of signal is seen within the brain parenchyma. No midline shift or mass effect is seen. No acute diffusion abnormalities are seen. Impression: 1. Old lacunar infarct and minimal senescent change. 2. No acute diffusion abnormalities are seen. Findings are stable from recent head CT exam and prior MRI brain. Diagnostic code #2
[2018-02-01] MEDS ORDERED: Magnesium Hydroxide 400 MG/5 ML Susp 30 ML Cup PO PRN (17:03)
[2018-02-01] MEDS ORDERED: Acetaminophen 325 MG Tab PO PRN (17:03)
[2018-02-01] MEDS ORDERED: Temazepam 7.5 MG Cap PO PRN (17:03)
[2018-02-01] MEDS ORDERED: Docusate Sodium 100 MG Cap PO PRN (17:03)
[2018-02-01] MEDS ORDERED: Bisacodyl 5 MG Tab PO PRN (17:03)
[2018-02-01] MEDS ORDERED: Acetaminophen/HYDROcodone 325-5 MG Tab PO PRN (17:03)
[2018-02-01] MEDS ORDERED: Promethazine 6.25 MG in Sodium Chloride 0.9% 50 ML IV PRN (17:03)
[2018-02-01] MEDS ORDERED: Promethazine 25 MG Tab PO PRN (17:03)
[2018-02-01] MEDS ORDERED: Polyethylene Glycol 3350 Powder 17 GM Packet PO PRN (17:03)
[2018-02-01] MEDS ORDERED: HYDROmorphone 0.5 MG/0.5 ML SYRINGE IVPUSH PRN (17:03)
[2018-02-01] MEDS ORDERED: Albuterol/Ipratropium 3.0-0.5 MG/3 ML Neb Soln NEB PRN (17:03)
[2018-02-01] MEDS ORDERED: hydrALAZINE 20 MG/ML SDV IVPUSH PRN (17:43)
[2018-02-01] MEDS: Losartan 25 MG Tab PO SCH (17:45)
[2018-02-01] MEDS: Hydrochlorothiazide 25 MG Tab PO SCH (17:46)
[2018-02-01] MEDS: Metoprolol Succinate 50 MG Tab.ER PO SCH (20:05)
[2018-02-01] MEDS: Aspirin 81 MG Tab.EC PO SCH (20:05)
[2018-02-01] MEDS: Insulin Aspart 100 Units/ML 3 ML Pen SUBCUT SCH (21:31)
--- NOTE | 2018-02-02 08:20 | PCM.PN ---
<Ivonne Squires - Last Filed: 02/02/18 14:05> - General Info Date of Service: 02/02/18 Subjective Update: In to see Georgina. She is resting comfortably in bed. Daughter present at bedside. Patient reports she had a good night. She denies any weakness, numbness , or confusion. Denies chest pain or shortness of breath. Denies having episodes of dyspnea at home. Nursing reports patient had 2 episodes of oxygen desaturations but was otherwise stable. Patient is currently not wearing O2. Shortly after initial interview, RN came to myself and reported that patient was in the bathroom and then began to slide off the toilet. She no longer knows her name or where she was located. She was not answering questions appropriately. Oxygen was noted to be below 90 and NC was placed. Functional Status: Reports: Pain Controlled, Tolerating Diet, Ambulating, Urinating - Review of Systems General: Reports: No Symptoms. Denies: Fever, Weakness HEENT: Reports: No Symptoms. Denies: Headaches, Sinus Congestion Pulmonary: Reports: No Symptoms. Denies: Shortness of Breath, Cough Cardiovascular: Reports: No Symptoms. Denies: Chest Pain, Palpitations, Edema Gastrointestinal: Reports: No Symptoms. Denies: Abdominal Pain, Constipation, Diarrhea, Nausea, Vomiting Genitourinary: Reports: No Symptoms. Denies: Dysuria, Frequency, Hematuria Musculoskeletal: Reports: No Symptoms. Denies: Joint Pain Skin: Reports: No Symptoms. Denies: Cyanosis, Pallor Neurological: Reports: Confusion (not answering questions appropriately ). Denies: Dizziness, Headache, Numbness, Paresthesia Psychiatric: Reports: Confusion - Patient Data Vitals - Most Recent: Last Vital Signs Temp 98.1 F 02/02/18 07:00 Pulse 69 02/02/18 07:00 Resp 15 02/02/18 07:00 BP 186/76 H 02/02/18 07:00 Pulse Ox 96 02/02/18 07:00 Weight - Most Recent: 72.348 kg I&O - Last 24 Hours: Intake & Output 02/01/18 02/02/18 02/02/18 22:59 06:59 14:59 Intake Total 60 100 Output Total 200 800 Balance -140 -700 Lab Results Last 24 Hours: Laboratory Results - last 24 hr 02/01/18 02/01/18 02/01/18 Range/Units 11:44 12:15 12:15 WBC 10.33 H (3.98-10.04) K/mm3 RBC 4.28 (3.98-5.22) M/mm3 Hgb 12.5 (11.2-15.7) gm/L Hct 36.7 (34.1-44.9) % MCV 85.7 (79.4-94.8) fl MCH 29.2 (25.6-32.2) pg MCHC 34.1 (32.2-35.5) g/dl RDW Std Deviation 39.8 (36.4-46.3) fL Plt Count 271 (182-369) K/mm3 MPV 8.4 L (9.4-12.3) fl Neut % (Auto) 82.2 H (34.0-71.1) % Lymph % (Auto) 11.0 L (19.3-51.7) % Bullock % (Auto) 6.5 (4.7-12.5) % Eos % (Auto) 0 L (0.7-5.8) Baso % (Auto) 0.1 (0.1-1.2) % Neut # (Auto) 8.49 H (1.56-6.13) K/mm3 Lymph # (Auto) 1.14 L (1.18-3.74) K/mm3 Bullock # (Auto) 0.67 H (0.24-0.36) K/mm3 Eos # (Auto) 0.00 L (0.04-0.36) K/mm3 Baso # (Auto) 0.01 (0.01-0.08) K/mm3 PT 10.4 (9.5-12.1) SECONDS INR 0.95 APTT (24-31) SECONDS Sodium (136-145) mEq/L Potassium (3.5-5.1) mEq/L Chloride (98-107) mEq/L Carbon Dioxide (21-32) mEq/L Anion Gap (5-15) BUN (7-18) mg/dL Creatinine (0.55-1.02) mg/dL Est Cr Clr Drug Dosing mL/min Estimated GFR (MDRD) (>60) mL/min BUN/Creatinine Ratio (14-18) Glucose (83-115) mg/dL POC Glucose 111 H (83-110) mg/dL Hemoglobin A1c (4.50-6.20) % Calcium (8.5-10.1) mg/dL Magnesium (1.8-2.4) mg/dl Total Bilirubin (0.2-1.0) mg/dL AST (15-37) U/L ALT (14-59) U/L Alkaline Phosphatase (46-116) U/L Troponin I (0.00-0.056) ng/mL Total Protein (6.4-8.2) g/dl Albumin (3.4-5.0) g/dl Globulin gm/dL Albumin/Globulin Ratio (1-2) Triglycerides (<150) mg/dL Cholesterol (<200) mg/dL LDL Cholesterol Direct (<100) mg/dL HDL Cholesterol (40-59) mg/dL Vitamin B12 (193-986) pg/ml TSH 3rd Generation (0.358-3.74) uIU/mL Urine Color (Yellow) Urine Appearance (Clear) Urine pH (5.0-8.0) Ur Specific [place] (1.005-1.030) Urine Protein (Negative) Urine Glucose (UA) (Negative) Urine Ketones (Negative) Urine Occult Blood (Negative) Urine Nitrite (Negative) Urine Bilirubin (Negative) Urine Urobilinogen (0.2-1.0) Ur Leukocyte Esterase (Negative) Urine RBC (0-5) /hpf Urine WBC (0-5) /hpf Ur Epithelial Cells (0-5) /hpf Urine Bacteria (FEW) /hpf Urine Mucus (FEW) /hpf 02/01/18 02/01/18 02/01/18 Range/Units 12:15 12:15 12:15 WBC (3.98-10.04) K/mm3 RBC (3.98-5.22) M/mm3 Hgb (11.2-15.7) gm/L Hct (34.1-44.9) % MCV (79.4-94.8) fl MCH (25.6-32.2) pg MCHC (32.2-35.5) g/dl RDW Std Deviation (36.4-46.3) fL Plt Count (182-369) K/mm3 MPV (9.4-12.3) fl Neut % (Auto) (34.0-71.1) % Lymph % (Auto) (19.3-51.7) % Bullock % (Auto) (4.7-12.5) % Eos % (Auto) (0.7-5.8) Baso % (Auto) (0.1-1.2) % Neut # (Auto) (1.56-6.13) K/mm3 Lymph # (Auto) (1.18-3.74) K/mm3 Bullock # (Auto) (0.24-0.36) K/mm3 Eos # (Auto) (0.04-0.36) K/mm3 Baso # (Auto) (0.01-0.08) K/mm3 PT (9.5-12.1) SECONDS INR APTT (24-31) SECONDS Sodium 133 L (136-145) mEq/L Potassium 4.3 (3.5-5.1) mEq/L Chloride 95 L (98-107) mEq/L Carbon Dioxide 29 (21-32) mEq/L Anion Gap 13.3 (5-15) BUN 13 (7-18) mg/dL Creatinine 1.1 H (0.55-1.02) mg/dL Est Cr Clr Drug Dosing 35.22 mL/min Estimated GFR (MDRD) 48 (>60) mL/min BUN/Creatinine Ratio 11.8 L (14-18) Glucose 118 H (83-115) mg/dL POC Glucose (83-110) mg/dL Hemoglobin A1c 6.40 H (4.50-6.20) % Calcium 9.8 (8.5-10.1) mg/dL Magnesium 1.3 L (1.8-2.4) mg/dl Total Bilirubin 1.1 H (0.2-1.0) mg/dL AST 20 (15-37) U/L ALT 25 (14-59) U/L Alkaline Phosphatase 50 (46-116) U/L Troponin I < 0.017 (0.00-0.056) ng/mL Total Protein 7.4 (6.4-8.2) g/dl Albumin 4.0 (3.4-5.0) g/dl Globulin 3.4 gm/dL Albumin/Globulin Ratio 1.2 (1-2) Triglycerides 111 (<150) mg/dL Cholesterol 199 (<200) mg/dL LDL Cholesterol Direct 145 H* (<100) mg/dL HDL Cholesterol 47.0 (40-59) mg/dL Vitamin B12 (193-986) pg/ml TSH 3rd Generation (0.358-3.74) uIU/mL Urine Color (Yellow) Urine Appearance (Clear) Urine pH (5.0-8.0) Ur Specific [place] (1.005-1.030) Urine Protein (Negative) Urine Glucose (UA) (Negative) Urine Ketones (Negative) Urine Occult Blood (Negative) Urine Nitrite (Negative) Urine Bilirubin (Negative) Urine Urobilinogen (0.2-1.0) Ur Leukocyte Esterase (Negative) Urine RBC (0-5) /hpf Urine WBC (0-5) /hpf Ur Epithelial Cells (0-5) /hpf Urine Bacteria (FEW) /hpf Urine Mucus (FEW) /hpf 02/01/18 02/01/18 02/01/18 Range/Units 12:21 12:21 17:10 WBC (3.98-10.04) K/mm3 RBC (3.98-5.22) M/mm3 Hgb (11.2-15.7) gm/L Hct (34.1-44.9) % MCV (79.4-94.8) fl MCH (25.6-32.2) pg MCHC (32.2-35.5) g/dl RDW Std Deviation (36.4-46.3) fL Plt Count (182-369) K/mm3 MPV (9.4-12.3) fl Neut % (Auto) (34.0-71.1) % Lymph % (Auto) (19.3-51.7) % Bullock % (Auto) (4.7-12.5) % Eos % (Auto) (0.7-5.8) Baso % (Auto) (0.1-1.2) % Neut # (Auto) (1.56-6.13) K/mm3 Lymph # (Auto) (1.18-3.74) K/mm3 Bullock # (Auto) (0.24-0.36) K/mm3 Eos # (Auto) (0.04-0.36) K/mm3 Baso # (Auto) (0.01-0.08) K/mm3 PT (9.5-12.1) SECONDS INR APTT (24-31) SECONDS Sodium (136-145) mEq/L Potassium (3.5-5.1) mEq/L Chloride (98-107) mEq/L Carbon Dioxide (21-32) mEq/L Anion Gap (5-15) BUN (7-18) mg/dL Creatinine (0.55-1.02) mg/dL Est Cr Clr Drug Dosing mL/min Estimated GFR (MDRD) (>60) mL/min BUN/Creatinine Ratio (14-18) Glucose (83-115) mg/dL POC Glucose (83-110) mg/dL Hemoglobin A1c (4.50-6.20) % Calcium (8.5-10.1) mg/dL Magnesium (1.8-2.4) mg/dl Total Bilirubin (0.2-1.0) mg/dL AST (15-37) U/L ALT (14-59) U/L Alkaline Phosphatase (46-116) U/L Troponin I (0.00-0.056) ng/mL Total Protein (6.4-8.2) g/dl Albumin (3.4-5.0) g/dl Globulin gm/dL Albumin/Globulin Ratio (1-2) Triglycerides (<150) mg/dL Cholesterol (<200) mg/dL LDL Cholesterol Direct (<100) mg/dL HDL Cholesterol (40-59) mg/dL Vitamin B12 471 (193-986) pg/ml TSH 3rd Generation 1.166 (0.358-3.74) uIU/mL Urine Color Yellow (Yellow) Urine Appearance Clear (Clear) Urine pH 7.0 (5.0-8.0) Ur Specific [place] > or = 1.030 (1.005-1.030) Urine Protein Trace H (Negative) Urine Glucose (UA) Negative (Negative) Urine Ketones Negative (Negative) Urine Occult Blood Negative (Negative) Urine Nitrite Negative (Negative) Urine Bilirubin Negative (Negative) Urine Urobilinogen 0.2 (0.2-1.0) Ur Leukocyte Esterase 1+ H (Negative) Urine RBC 0-5 (0-5) /hpf Urine WBC 0-5 (0-5) /hpf Ur Epithelial Cells 5-10 H (0-5) /hpf Urine Bacteria Few (FEW) /hpf Urine Mucus Few (FEW) /hpf 02/01/18 02/01/18 02/02/18 Range/Units 17:51 21:23 05:25 WBC (3.98-10.04) K/mm3 RBC (3.98-5.22) M/mm3 Hgb (11.2-15.7) gm/L Hct (34.1-44.9) % MCV (79.4-94.8) fl MCH (25.6-32.2) pg MCHC (32.2-35.5) g/dl RDW Std Deviation (36.4-46.3) fL Plt Count (182-369) K/mm3 MPV (9.4-12.3) fl Neut % (Auto) (34.0-71.1) % Lymph % (Auto) (19.3-51.7) % Bullock % (Auto) (4.7-12.5) % Eos % (Auto) (0.7-5.8) Baso % (Auto) (0.1-1.2) % Neut # (Auto) (1.56-6.13) K/mm3 Lymph # (Auto) (1.18-3.74) K/mm3 Bullock # (Auto) (0.24-0.36) K/mm3 Eos # (Auto) (0.04-0.36) K/mm3 Baso # (Auto) (0.01-0.08) K/mm3 PT (9.5-12.1) SECONDS INR APTT (24-31) SECONDS Sodium 132 L (136-145) mEq/L Potassium 3.8 (3.5-5.1) mEq/L Chloride 96 L (98-107) mEq/L Carbon Dioxide 29 (21-32) mEq/L Anion Gap 10.8 (5-15) BUN 17 (7-18) mg/dL Creatinine 1.0 (0.55-1.02) mg/dL Est Cr Clr Drug Dosing 38.75 mL/min Estimated GFR (MDRD) 53 (>60) mL/min BUN/Creatinine Ratio 17.0 (14-18) Glucose 134 H (83-115) mg/dL POC Glucose 120 H 131 H (83-110) mg/dL Hemoglobin A1c (4.50-6.20) % Calcium 9.0 (8.5-10.1) mg/dL Magnesium 1.7 L (1.8-2.4) mg/dl Total Bilirubin (0.2-1.0) mg/dL AST (15-37) U/L ALT (14-59) U/L Alkaline Phosphatase (46-116) U/L Troponin I (0.00-0.056) ng/mL Total Protein (6.4-8.2) g/dl Albumin (3.4-5.0) g/dl Globulin gm/dL Albumin/Globulin Ratio (1-2) Triglycerides (<150) mg/dL Cholesterol (<200) mg/dL LDL Cholesterol Direct (<100) mg/dL HDL Cholesterol (40-59) mg/dL Vitamin B12 (193-986) pg/ml TSH 3rd Generation (0.358-3.74) uIU/mL Urine Color (Yellow) Urine Appearance (Clear) Urine pH (5.0-8.0) Ur Specific [place] (1.005-1.030) Urine Protein (Negative) Urine Glucose (UA) (Negative) Urine Ketones (Negative) Urine Occult Blood (Negative) Urine Nitrite (Negative) Urine Bilirubin (Negative) Urine Urobilinogen (0.2-1.0) Ur Leukocyte Esterase (Negative) Urine RBC (0-5) /hpf Urine WBC (0-5) /hpf Ur Epithelial Cells (0-5) /hpf Urine Bacteria (FEW) /hpf Urine Mucus (FEW) /hpf 02/02/18 02/02/18 Range/Units 05:35 05:35 WBC 6.80 (3.98-10.04) K/mm3 RBC 4.11 (3.98-5.22) M/mm3 Hgb 11.9 (11.2-15.7) gm/L Hct 35.4 (34.1-44.9) % MCV 86.1 (79.4-94.8) fl MCH 29.0 (25.6-32.2) pg MCHC 33.6 (32.2-35.5) g/dl RDW Std Deviation 39.8 (36.4-46.3) fL Plt Count 265 (182-369) K/mm3 MPV 8.6 L (9.4-12.3) fl Neut % (Auto) 61.5 (34.0-71.1) % Lymph % (Auto) 27.2 (19.3-51.7) % Bullock % (Auto) 10.7 (4.7-12.5) % Eos % (Auto) 0.4 L (0.7-5.8) Baso % (Auto) 0.1 (0.1-1.2) % Neut # (Auto) 4.17 (1.56-6.13) K/mm3 Lymph # (Auto) 1.85 (1.18-3.74) K/mm3 Bullock # (Auto) 0.73 H (0.24-0.36) K/mm3 Eos # (Auto) 0.03 L (0.04-0.36) K/mm3 Baso # (Auto) 0.01 (0.01-0.08) K/mm3 PT 10.3 (9.5-12.1) SECONDS INR 0.94 APTT 27 (24-31) SECONDS Sodium (136-145) mEq/L Potassium (3.5-5.1) mEq/L Chloride (98-107) mEq/L Carbon Dioxide (21-32) mEq/L Anion Gap (5-15) BUN (7-18) mg/dL Creatinine (0.55-1.02) mg/dL Est Cr Clr Drug Dosing mL/min Estimated GFR (MDRD) (>60) mL/min BUN/Creatinine Ratio (14-18) Glucose (83-115) mg/dL POC Glucose (83-110) mg/dL Hemoglobin A1c (4.50-6.20) % Calcium (8.5-10.1) mg/dL Magnesium (1.8-2.4) mg/dl Total Bilirubin (0.2-1.0) mg/dL AST (15-37) U/L ALT (14-59) U/L Alkaline Phosphatase (46-116) U/L Troponin I (0.00-0.056) ng/mL Total Protein (6.4-8.2) g/dl Albumin (3.4-5.0) g/dl Globulin gm/dL Albumin/Globulin Ratio (1-2) Triglycerides (<150) mg/dL Cholesterol (<200) mg/dL LDL Cholesterol Direct (<100) mg/dL HDL Cholesterol (40-59) mg/dL Vitamin B12 (193-986) pg/ml TSH 3rd Generation (0.358-3.74) uIU/mL Urine Color (Yellow) Urine Appearance (Clear) Urine pH (5.0-8.0) Ur Specific [place] (1.005-1.030) Urine Protein (Negative) Urine Glucose (UA) (Negative) Urine Ketones (Negative) Urine Occult Blood (Negative) Urine Nitrite (Negative) Urine Bilirubin (Negative) Urine Urobilinogen (0.2-1.0) Ur Leukocyte Esterase (Negative) Urine RBC (0-5) /hpf Urine WBC (0-5) /hpf Ur Epithelial Cells (0-5) /hpf Urine Bacteria (FEW) /hpf Urine Mucus (FEW) /hpf Med Orders - Current: Current Medications Acetaminophen (Tylenol) 650 mg PO Q4H PRN PRN Reason: Pain (Mild 1-3)/fever Hydrocodone Bitart/Acetaminophen (Barnhart 325-5 Mg) 1 tab PO Q4H PRN PRN Reason: Pain (moderate 4-6) Albuterol/Ipratropium (Duoneb 3.0-0.5 Mg/3 Ml) 3 ml NEB Q4H PRN PRN Reason: Shortness Of Breath/wheezing Ascorbic Acid (Vitamin C) 500 mg PO DAILY ON LICENSE OF [facility] Aspirin (Halfprin) 81 mg PO BID ON LICENSE OF [facility] Last Admin: 02/01/18 20:05 Dose: 81 mg Bisacodyl (Dulcolax) 5 mg PO DAILY PRN PRN Reason: Constipation Calcium Carbonate/Glycine (Calcium Carbonate) 1,200 mg PO DAILY ON LICENSE OF [facility] Clopidogrel Bisulfate (Plavix) 75 mg PO DAILY ON LICENSE OF [facility] Docusate Sodium (Colace) 100 mg PO BID PRN PRN Reason: Constipation Donepezil HCl (Aricept) 5 mg PO BEDTIME ON LICENSE OF [facility] Enoxaparin Sodium (Lovenox) 40 mg SUBCUT Q24H ON LICENSE OF [facility] Hydralazine HCl (Apresoline) 20 mg IVPUSH ONETIME PRN PRN Reason: Hypertension Hydrochlorothiazide (Hydrochlorothiazide) 12.5 mg PO DAILY ON LICENSE OF [facility] Last Admin: 02/01/18 17:46 Dose: Not Given Hydromorphone HCl (Dilaudid) 0.25 mg IVPUSH Q2H PRN PRN Reason: Pain (severe 7-10) Promethazine HCl 6.25 mg/ (Sodium Chloride) 50.25 mls @ 100 mls/hr IV Q6H PRN PRN Reason: Nausea/Vomiting Insulin Aspart (Novolog) 0 unit SUBCUT QIDACANDBED ON LICENSE OF [facility]; Protocol Last Admin: 02/01/18 21:31 Dose: Not Given Losartan Potassium (Cozaar) 25 mg PO DAILY ON LICENSE OF [facility] Last Admin: 02/01/18 17:45 Dose: Not Given Magnesium Hydroxide (Milk Of Magnesia) 30 ml PO Q12H PRN PRN Reason: Constipation Metformin HCl (Glucophage) 1,000 mg PO BIDMEALS ON LICENSE OF [facility] Metoprolol Succinate (Toprol Xl) 50 mg PO BID ON LICENSE OF [facility] Last Admin: 02/01/18 20:05 Dose: 50 mg Multivitamins (Thera) 1 each PO DAILY ON LICENSE OF [facility] Meloxicam 15 Mg 0 each PO BID PRN PRN Reason: Pain Polyethylene Glycol (Miralax) 17 gm PO DAILY PRN PRN Reason: Constipation Promethazine HCl (Phenergan) 25 mg PO Q6H PRN PRN Reason: Nausea/Vomiting Senna/Docusate Sodium (Senna Plus) 1 tab PO BID PRN PRN Reason: Constipation Sertraline HCl (Zoloft) 50 mg PO DAILY ON LICENSE OF [facility] Sodium Chloride (Saline Flush) 10 ml FLUSH ASDIRECTED PRN PRN Reason: Keep Vein Open Last Admin: 02/01/18 13:23 Dose: 10 ml Temazepam (Restoril) 7.5 mg PO BEDTIME PRN PRN Reason: Sleep Discontinued Medications Enoxaparin Sodium (Lovenox) 40 mg SUBCUT DAILY ON LICENSE OF [facility] Magnesium Sulfate 2 gm/ Premix 50 mls @ 25 mls/hr IV ONETIME ONE Stop: 02/01/18 15:27 Last Admin: 02/01/18 13:35 Dose: 25 mls/hr Magnesium Sulfate 2 gm/ Premix 50 mls @ 25 mls/hr IV ONETIME ONE Stop: 02/01/18 20:14 Last Admin: 02/01/18 18:58 Dose: 25 mls/hr Magnesium Sulfate (Pharmacy To Dose - Magnesium Replacement) 1 dose .XX ASDIRECTED ON LICENSE OF [facility] Midazolam HCl (Versed 1 Mg/Ml) 1 mg IVPUSH ONETIME ONE Stop: 02/01/18 15:32 Last Admin: 02/01/18 15:35 Dose: 1 mg - Exam Quality Assessment: Supplemental Oxygen General: Alert, Other (She is not oriented to self, time or place ) HEENT: Pupils Equal, Pupils Reactive, EOMI, Mucous Membr. Moist/[place] Neck: Supple, Lymphadenopathy Lungs: Clear to Auscultation, Normal Respiratory Effort Cardiovascular: Regular Rate, Regular Rhythm, No Murmurs GI/Abdominal Exam: Normal Bowel Sounds, Soft, Non-Tender, No Distention (Female) Exam: Deferred Back Exam: Normal Inspection, Full Range of Motion Extremities: Normal Inspection, Normal Range of Motion, Non-Tender, No Pedal Edema Peripheral Pulses: 1+: Posterior Tibial (L), Posterior Tibial (R), Dorsalis Pedis (L), Dorsalis Pedis (R), 2+: Radial (L), Radial (R) Skin: Warm, Dry, Intact Neurological: Other (CN II-VII intact at both visits, she was able to follow commands but had less attention during second visit ) Psy/Mental Status: Alert, Other (Patient initially was appropriate affect/mood but then appeared vacant with emotionless expression ) - Problem List Review Problem List Initiated/Reviewed/Updated: Yes - My Orders Last 24 Hours: My Active Orders 02/01/18 17:03 Ambulate [RC] ASDIRECTED Bedrest Bathroom Privileges [RC] ASDIRECTED Blood Glucose Check, Bedside [RC] WITHMEALSANDBED Height and Weight [RC] 0400 December Shower [RC] ASDIRECTED Oxygen Therapy [RC] PRN Up With Assistance [RC] ASDIRECTED Up to Chair [RC] ASDIRECTED VTE/DVT Education [RC] 10,22 Vital Signs [RC] Q1HR Consult to Case Management [CONS] Routine Consult to Substance Abuse Rn [CONS] Routine Consult to Insurance Claims Representative [CONS] Routine OT Evaluation and Treatment [CONS] Routine PT Evaluation and Treatment [CONS] Routine Respiratory Care Assess and Treatment [CONS] Routine DRAMA CRITIC Evaluation and Treatment [CONS] Routine Acetaminophen [Tylenol] 650 mg PO Q4H PRN Acetaminophen/HYDROcodone [Barnhart 325-5 MG] 1 tab PO Q4H PRN Albuterol/Ipratropium [DuoNeb 3.0-0.5 MG/3 ML] 3 ml NEB Q4H PRN Bisacodyl [Dulcolax] 5 mg PO DAILY PRN Docusate Sodium [Colace] 100 mg PO BID PRN Docusate Sodium/Sennosides [Senna Plus] 1 tab PO BID PRN HYDROmorphone [Dilaudid] 0.25 mg IVPUSH Q2H PRN Magnesium Hydroxide [Milk of Magnesia] 30 ml PO Q12H PRN Polyethylene Glycol 3350 [MiraLAX] 17 gm PO DAILY PRN Promethazine [Phenergan] 25 mg PO Q6H PRN Promethazine [Phenergan] 6.25 mg Sodium Chloride 0.9% [Normal Saline] 50 ml IV Q6H Temazepam [Restoril] 7.5 mg PO BEDTIME PRN Resuscitation Status Routine 02/01/18 17:04 Cardiac Monitoring [RC] CONTINUOUS Intake and Output [RC] 04,16 Pulse Oximetry [RC] CONTINUOUS Sequential Compression Device [OM.PC] Per Unit Routine 02/01/18 17:08 RT Aerosol Therapy [RC] ASDIRECTED 02/01/18 17:19 Patient's Own Medication [Ptom] 0 each PO BID PRN 02/01/18 17:30 Hydrochlorothiazide 12.5 mg PO DAILY Losartan [Cozaar] 25 mg PO DAILY 02/01/18 17:40 DRAMA CRITIC Evaluation and Treatment [CONS] Routine 02/01/18 17:43 hydrALAZINE [Apresoline] 20 mg IVPUSH ONETIME PRN 02/01/18 18:03 DRAMA CRITIC Eval and Treat [DRAMA CRITIC Evaluation and Treatment] [CONS] Routine 02/01/18 21:00 Aspirin [Halfprin] 81 mg PO BID Metoprolol Succinate [Toprol XL] 50 mg PO BID 02/01/18 22:00 Insulin Aspart [NovoLOG] See Protocol SUBCUT QIDACANDBED 02/01/18 Dinner ADA Diabetic [[employer] Diet] [DIET] 02/02/18 07:00 metFORMIN [Glucophage] 1,000 mg PO BIDMEALS 02/02/18 09:00 Ascorbic Acid [Vitamin C] 500 mg PO DAILY Calcium Carbonate 1,200 mg PO DAILY Clopidogrel [Plavix] 75 mg PO DAILY Enoxaparin [Lovenox] 40 mg SUBCUT Q24H Multivitamins,Therapeutic [Thera] 1 each PO DAILY Sertraline [Zoloft] 50 mg PO DAILY 02/02/18 21:00 Donepezil [Aricept] 5 mg PO BEDTIME 02/03/18 05:11 BASIC METABOLIC PANEL,BMP [CHEM] AM CBC WITH AUTO DIFF [HEME] AM INR,PT,PROTHROMBIN TIME [COAG] AM MAGNESIUM [CHEM] AM PTT,PARTIAL THROMBOPLSTIN TIME [COAG] AM 02/04/18 05:11 BASIC METABOLIC PANEL,BMP [CHEM] AM CBC WITH AUTO DIFF [HEME] AM INR,PT,PROTHROMBIN TIME [COAG] AM MAGNESIUM [CHEM] AM PTT,PARTIAL THROMBOPLSTIN TIME [COAG] AM 02/05/18 05:11 BASIC METABOLIC PANEL,BMP [CHEM] AM CBC WITH AUTO DIFF [HEME] AM INR,PT,PROTHROMBIN TIME [COAG] AM MAGNESIUM [CHEM] AM PTT,PARTIAL THROMBOPLSTIN TIME [COAG] AM 02/06/18 05:11 BASIC METABOLIC PANEL,BMP [CHEM] AM CBC WITH AUTO DIFF [HEME] AM INR,PT,PROTHROMBIN TIME [COAG] AM MAGNESIUM [CHEM] AM PTT,PARTIAL THROMBOPLSTIN TIME [COAG] AM - Plan Plan:: I/P: Acute: Altered mental status - r/o CVA, TIA - CHADSVASc score 5 --> will order Lovenox 40 mg inj daily - Cognitive issues at baseline - Head CT ordered in ED and read as senescent changes with no acute intracranial abnormality - MRI ordered in ED 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 and no acute abnormalities and stable from prior MRI - UA negative - Carotid US in 2017 with minimal plaque - 2D Echo with bubble study pending - Consult PT/OT - Consult DRAMA CRITIC for swallow eval, eval/tx aphasia, and cognitive eval - Continue Plavix and aspirin - Neuro checks q 1 hr Oxygen desaturations - Patient had episodes in ED and 2 episodes overnight - She had period of decreased alertness and confusion this morning - ABG, CXR 2 view, mycoplasma pneumoniae, strep pneumo Ag, and viral panel ordered and pending - Question if she is having these episodes at home as well and causing these transient periods of confusion --> will order nocturnal pulse oximetry - Also question if she is possibly having seizure activity as there is periods of vacant staring during the desaturation episodes--> Will order EEG Dementia - Patient has cognitive issues at baseline - Vitamin B12 471 and TSH 1.166 - Consult [facility] for cognitive eval Hypertension - Elevated in ED 192/63 and this morning was 186/76 - Home meds include hydrochlorothiazide 12.5 mg po daily, losartan 25 mg po daily --> will increase losartan to 25 mg po BID - Will order hydralazine 20 mg IV prn BP > 160/90 - Resume above antihypertensives - Lipid panel: Total 199, LDL 145, HDL 47 --> consider statin - Heart healthy diet Hyperglycemia, mild - Glucose 118 in ED - Hx of Type 2 DM - Metformin 1000 mg po BID per home meds - Low dose SSI - Diabetic diet - Hgb A1c 6.4 - Monitor Renal insufficiency - Cr 1.1, eGFR 48 in ED - Appears to be close to patient's baseline - Monitor Hypomagnesemia - Mg 1.4 in ED, 1.7 today - Will replete Resolved: Leukocytosis, resolved - WBC 6.8 today (was 10.33) - UA negative - Monitor Chronic: Previous TIA Dementia Type 2 DM Afib dx'd 27 years ago with no issues since (as reported by family) --> she is not on any anticoagulation at this time HTN Cataracts b/l [place] Diverticulosis Plan: Admitted from ED to ICU status Other orders as indicated above CM/SW for discharge planning Routine AM labs Continue home meds Heart Healthy/Diabetic diet Consult PT/OT Consult [facility] for swallow eval, eval/tx aphasia and cognitive eval DVT Prophylaxis: SCDs and Lovenox 30 mg inj daily Ambulate as tolerated Code Status: Full PCP: Dr. Matthew Rodriguez <Gely Teresa - Last Filed: 02/04/18 13:00> - Patient Data Vitals - Most Recent: Last Vital Signs Temp 36.8 C 02/04/18 12:00 Pulse 72 02/04/18 08:03 Resp 16 02/04/18 12:00 BP 159/83 H 02/04/18 12:00 Pulse Ox 94 L 02/04/18 12:00 I&O - Last 24 Hours: Intake & Output 02/03/18 02/04/18 02/04/18 22:59 06:59 14:59 Intake Total 360 400 Output Total 200 400 Balance 160 400 -400 Lab Results Last 24 Hours: Laboratory Results - last 24 hr 02/03/18 02/03/18 02/04/18 Range/Units 17:16 21:36 05:40 WBC 6.74 (3.98-10.04) K/mm3 RBC 4.00 (3.98-5.22) M/mm3 Hgb 11.6 (11.2-15.7) gm/L Hct 34.8 (34.1-44.9) % MCV 87.0 (79.4-94.8) fl MCH 29.0 (25.6-32.2) pg MCHC 33.3 (32.2-35.5) g/dl RDW Std Deviation 39.8 (36.4-46.3) fL Plt Count 260 (182-369) K/mm3 MPV 8.7 L (9.4-12.3) fl Neut % (Auto) 56.1 (34.0-71.1) % Lymph % (Auto) 29.1 (19.3-51.7) % Bullock % (Auto) 13.1 H (4.7-12.5) % Eos % (Auto) 1.3 (0.7-5.8) Baso % (Auto) 0.3 (0.1-1.2) % Neut # (Auto) 3.78 (1.56-6.13) K/mm3 Lymph # (Auto) 1.96 (1.18-3.74) K/mm3 Bullock # (Auto) 0.88 H (0.24-0.36) K/mm3 Eos # (Auto) 0.09 (0.04-0.36) K/mm3 Baso # (Auto) 0.02 (0.01-0.08) K/mm3 PT (9.5-12.1) SECONDS INR APTT (24-31) SECONDS Sodium (136-145) mEq/L Potassium (3.5-5.1) mEq/L Chloride (98-107) mEq/L Carbon Dioxide (21-32) mEq/L Anion Gap (5-15) BUN (7-18) mg/dL Creatinine (0.55-1.02) mg/dL Est Cr Clr Drug Dosing mL/min Estimated GFR (MDRD) (>60) mL/min BUN/Creatinine Ratio (14-18) Glucose (83-115) mg/dL POC Glucose 166 H 121 H (83-110) mg/dL Calcium (8.5-10.1) mg/dL Magnesium (1.8-2.4) mg/dl 02/04/18 02/04/18 02/04/18 Range/Units 05:40 05:40 05:52 WBC (3.98-10.04) K/mm3 RBC (3.98-5.22) M/mm3 Hgb (11.2-15.7) gm/L Hct (34.1-44.9) % MCV (79.4-94.8) fl MCH (25.6-32.2) pg MCHC (32.2-35.5) g/dl RDW Std Deviation (36.4-46.3) fL Plt Count (182-369) K/mm3 MPV (9.4-12.3) fl Neut % (Auto) (34.0-71.1) % Lymph % (Auto) (19.3-51.7) % Bullock % (Auto) (4.7-12.5) % Eos % (Auto) (0.7-5.8) Baso % (Auto) (0.1-1.2) % Neut # (Auto) (1.56-6.13) K/mm3 Lymph # (Auto) (1.18-3.74) K/mm3 Bullock # (Auto) (0.24-0.36) K/mm3 Eos # (Auto) (0.04-0.36) K/mm3 Baso # (Auto) (0.01-0.08) K/mm3 PT 9.8 (9.5-12.1) SECONDS INR < 0.93 APTT 25 (24-31) SECONDS Sodium 132 L (136-145) mEq/L Potassium 4.5 (3.5-5.1) mEq/L Chloride 96 L (98-107) mEq/L Carbon Dioxide 29 (21-32) mEq/L Anion Gap 11.5 (5-15) BUN 23 H (7-18) mg/dL Creatinine 1.0 (0.55-1.02) mg/dL Est Cr Clr Drug Dosing 38.75 mL/min Estimated GFR (MDRD) 53 (>60) mL/min BUN/Creatinine Ratio 23.0 H (14-18) Glucose 109 (83-115) mg/dL POC Glucose 115 H (83-110) mg/dL Calcium 9.2 (8.5-10.1) mg/dL Magnesium 1.6 L (1.8-2.4) mg/dl 02/04/18 Range/Units 12:02 WBC (3.98-10.04) K/mm3 RBC (3.98-5.22) M/mm3 Hgb (11.2-15.7) gm/L Hct (34.1-44.9) % MCV (79.4-94.8) fl MCH (25.6-32.2) pg MCHC (32.2-35.5) g/dl RDW Std Deviation (36.4-46.3) fL Plt Count (182-369) K/mm3 MPV (9.4-12.3) fl Neut % (Auto) (34.0-71.1) % Lymph % (Auto) (19.3-51.7) % [place] % (Auto) (4.7-12.5) % Eos % (Auto) (0.7-5.8) Baso % (Auto) (0.1-1.2) % Neut # (Auto) (1.56-6.13) K/mm3 Lymph # (Auto) (1.18-3.74) K/mm3 [place] # (Auto) (0.24-0.36) K/mm3 Eos # (Auto) (0.04-0.36) K/mm3 Baso # (Auto) (0.01-0.08) K/mm3 PT (9.5-12.1) SECONDS INR APTT (24-31) SECONDS Sodium (136-145) mEq/L Potassium (3.5-5.1) mEq/L Chloride (98-107) mEq/L Carbon Dioxide (21-32) mEq/L Anion Gap (5-15) BUN (7-18) mg/dL Creatinine (0.55-1.02) mg/dL Est Cr Clr Drug Dosing mL/min Estimated GFR (MDRD) (>60) mL/min BUN/Creatinine Ratio (14-18) Glucose (83-115) mg/dL POC Glucose 118 H (83-110) mg/dL Calcium (8.5-10.1) mg/dL Magnesium (1.8-2.4) mg/dl [place] Results Last 24 Hours: Microbiology 02/02/18 13:42 Respiratory Virus Panel (PCR) - Final Nasopharyngeal Swab Med Orders - Current: Current Medications Acetaminophen (Tylenol) 650 mg PO Q4H PRN PRN Reason: Pain (Mild 1-3)/fever Hydrocodone Bitart/Acetaminophen ([place] 325-5 Mg) 1 tab PO Q4H PRN PRN Reason: Pain (moderate 4-6) Albuterol/Ipratropium (Duoneb 3.0-0.5 Mg/3 Ml) 3 ml NEB Q4H PRN PRN Reason: Shortness Of Breath/wheezing Ascorbic Acid (Vitamin C) 500 mg PO DAILY ON LICENSE OF [facility] Last Admin: 02/04/18 08:03 Dose: 500 mg Aspirin (Halfprin) 81 mg PO BID ON LICENSE OF [facility] Last Admin: 02/04/18 08:03 Dose: 81 mg Bisacodyl (Dulcolax) 5 mg PO DAILY PRN PRN Reason: Constipation Last Admin: 02/03/18 08:29 Dose: 5 mg Calcium Carbonate/Glycine (Calcium Carbonate) 1,200 mg PO DAILY ON LICENSE OF [facility] Last Admin: 02/04/18 08:04 Dose: 1,200 mg Clopidogrel Bisulfate (Plavix) 75 mg PO DAILY ON LICENSE OF [facility] Last Admin: 02/04/18 08:03 Dose: 75 mg Docusate Sodium (Colace) 100 mg PO BID PRN PRN Reason: Constipation Donepezil HCl (Aricept) 5 mg PO BEDTIME ON LICENSE OF [facility] Last Admin: 02/03/18 20:19 Dose: 5 mg Enoxaparin Sodium (Lovenox) 40 mg SUBCUT Q24H ON LICENSE OF [facility] Last Admin: 02/04/18 08:02 Dose: 40 mg Gabapentin (Neurontin) 100 mg PO BID ON LICENSE OF [facility] Last Admin: 02/04/18 08:03 Dose: 100 mg Hydralazine HCl (Apresoline) 20 mg IVPUSH ONETIME PRN PRN Reason: Hypertension Hydrochlorothiazide (Hydrochlorothiazide) 12.5 mg PO DAILY ON LICENSE OF [facility] Last Admin: 02/04/18 08:05 Dose: 12.5 mg Hydromorphone HCl (Dilaudid) 0.25 mg IVPUSH Q2H PRN PRN Reason: Pain (severe 7-10) Promethazine HCl 6.25 mg/ (Sodium Chloride) 50.25 mls @ 100 mls/hr IV Q6H PRN PRN Reason: Nausea/Vomiting Magnesium Sulfate 4 gm/ Premix 100 mls @ 25 mls/hr IV ONETIME ONE Stop: 02/04/18 13:29 Last Admin: 02/04/18 09:23 Dose: 25 mls/hr Insulin Aspart (Novolog) 0 unit SUBCUT QIDACANDBED ON LICENSE OF [facility]; Protocol Last Admin: 02/04/18 12:07 Dose: Not Given Losartan Potassium (Cozaar) 25 mg PO BID ON LICENSE OF [facility] Last Admin: 02/04/18 08:03 Dose: 25 mg Magnesium Hydroxide (Milk Of Magnesia) 30 ml PO Q12H PRN PRN Reason: Constipation Magnesium Sulfate (Pharmacy To Dose - Magnesium Replacement) 0 dose .XX ASDIRECTED PRN PRN Reason: RX TO WATCH MAG LEVELS. [facility] Admin: 02/04/18 06:40 Dose: 1,000 mg Metoprolol Succinate (Toprol Xl) 50 mg PO BID ON LICENSE OF [facility] Last Admin: 02/04/18 08:03 Dose: 50 mg Multivitamins (Thera) 1 each PO DAILY ON [facility] OF [facility] Last Admin: 02/04/18 08:02 Dose: 1 each Oral Electrolytes (Thermotabs) 1 each PO BID ON LICENSE OF [facility] Stop: 02/04/18 21:01 Last Admin: 02/04/18 08:04 Dose: 1 each Meloxicam 15 Mg 0 each PO BID PRN PRN Reason: Pain Polyethylene Glycol (Miralax) 17 gm PO DAILY PRN PRN Reason: Constipation Promethazine HCl (Phenergan) 25 mg PO Q6H PRN PRN Reason: Nausea/Vomiting Senna/Docusate Sodium (Senna Plus) 1 tab PO BID PRN PRN Reason: Constipation Sertraline HCl (Zoloft) 50 mg PO DAILY ON [facility] OF [facility] Last Admin: 02/04/18 08:02 Dose: 50 mg Sodium Chloride (Saline Flush) 10 ml FLUSH ASDIRECTED PRN PRN Reason: Keep Vein Open Last Admin: 02/04/18 08:11 Dose: 10 ml Temazepam (Restoril) 7.5 mg PO BEDTIME PRN PRN Reason: Sleep Discontinued Medications Enoxaparin Sodium (Lovenox) 40 mg SUBCUT DAILY ON LICENSE OF [facility] Magnesium Sulfate 2 gm/ Premix 50 mls @ 25 mls/hr IV ONETIME ONE Stop: 02/01/18 15:27 Last Admin: 02/01/18 13:35 Dose: 25 mls/hr Magnesium Sulfate 2 gm/ Premix 50 mls @ 25 mls/hr IV ONETIME ONE Stop: 02/01/18 20:14 Last Admin: 02/01/18 18:58 Dose: 25 mls/hr Magnesium Sulfate 2 gm/ Premix 50 mls @ 25 mls/hr IV Q2H [facility] Stop: 02/03/18 13:59 Last Admin: 02/03/18 11:51 Dose: 25 mls/hr Losartan Potassium (Cozaar) 25 mg PO DAILY ON LICENSE OF [facility] Last Admin: 02/03/18 08:30 Dose: Not Given Magnesium Sulfate (Pharmacy To Dose - Magnesium Replacement) 1 dose .XX ASDIRECTED ON LICENSE OF [facility] Midazolam HCl (Versed 1 Mg/Ml) 1 mg IVPUSH ONETIME ONE Stop: 02/01/18 15:32 Last Admin: 02/01/18 15:35 Dose: 1 mg Oral Electrolytes (Thermotabs) 1 each PO ONETIME ONE Stop: 02/03/18 15:31 Last Admin: 02/03/18 15:39 Dose: 1 each Simvastatin (Zocor) 10 mg PO BEDTIME ON LICENSE OF [facility] Last Admin: 02/03/18 19:31 Dose: Not Given - My Orders Last 24 Hours: My Active Orders 02/04/18 10:23 Patient Status [ADT] Routine - Plan Plan:: Episodes of hypoxia, query SZ activity; SZ work up, will likely start anticonvulsant 24 hours if episodes continue. See above for full details of wok up and results.
[2018-02-02] MEDS: Insulin Aspart 100 Units/ML 3 ML Pen SUBCUT SCH ×4 (08:33→22:55)
[2018-02-02] MEDS: metFORMIN 500 MG Tab PO SCH ×2 (08:34→16:40)
[2018-02-02] MEDS: Losartan 25 MG Tab PO SCH ×2 (08:34→20:44)
[2018-02-02] MEDS: Hydrochlorothiazide 25 MG Tab PO SCH (08:34)
[2018-02-02] MEDS: Metoprolol Succinate 50 MG Tab.ER PO SCH ×2 (08:35→20:43)
[2018-02-02] MEDS: Multivitamins,Therapeutic Tab PO SCH (08:35)
[2018-02-02] MEDS: Sertraline 50 MG Tab PO SCH (08:35)
[2018-02-02] MEDS: Aspirin 81 MG Tab.EC PO SCH ×2 (08:35→20:43)
[2018-02-02] MEDS: Calcium Carbonate 600 MG Tab PO SCH (08:35)
[2018-02-02] MEDS: Ascorbic Acid 500 MG Tab PO SCH (08:35)
[2018-02-02] MEDS: Clopidogrel 75 MG Tab PO SCH (08:35)
[2018-02-02] MEDS: Enoxaparin 40 MG/0.4 ML Syringe SUBCUT SCH (08:36)
[2018-02-02] MEDS ORDERED: Enoxaparin 40 MG/0.4 ML Syringe SUBCUT SCH (09:00)
--- NOTE | 2018-02-02 09:19 | CR ---
Chest: Two views of the chest were obtained. Comparison: Prior chest x-ray of 02/01/18. Bilateral shoulder prosthesis are seen. Heart size and mediastinum are normal. Lungs are clear but slightly hyperinflated. Minimal degenerative change is noted within the mid and upper thoracic spine. Minimal scoliosis is noted. Impression: 1. Slightly hyperinflated lungs suggesting emphysematous change. 2. Other incidental findings. Nothing acute is seen. Diagnostic code #2
[2018-02-02] MEDS: Donepezil 10 MG Tab PO SCH (20:42)
[2018-02-02] MEDS: Gabapentin 100 MG Cap PO SCH (20:43)
[2018-02-02] MEDS ORDERED: Simvastatin 10 MG Tab PO SCH (21:00)
[2018-02-03] MEDS: Insulin Aspart 100 Units/ML 3 ML Pen SUBCUT SCH ×4 (06:20→21:40)
[2018-02-03] MEDS: metFORMIN 500 MG Tab PO SCH ×2 (06:40→17:13)
[2018-02-03] MEDS: Calcium Carbonate 600 MG Tab PO SCH (08:25)
[2018-02-03] MEDS: Hydrochlorothiazide 25 MG Tab PO SCH (08:26)
[2018-02-03] MEDS: Losartan 25 MG Tab PO SCH ×3 (08:26→20:19)
[2018-02-03] MEDS: Aspirin 81 MG Tab.EC PO SCH ×2 (08:26→20:15)
[2018-02-03] MEDS: Enoxaparin 40 MG/0.4 ML Syringe SUBCUT SCH (08:27)
[2018-02-03] MEDS: Metoprolol Succinate 50 MG Tab.ER PO SCH ×2 (08:28→20:16)
[2018-02-03] MEDS: Gabapentin 100 MG Cap PO SCH ×2 (08:28→20:16)
[2018-02-03] MEDS: Multivitamins,Therapeutic Tab PO SCH (08:28)
[2018-02-03] MEDS: Clopidogrel 75 MG Tab PO SCH (08:28)
[2018-02-03] MEDS: Sertraline 50 MG Tab PO SCH (08:29)
[2018-02-03] MEDS: Ascorbic Acid 500 MG Tab PO SCH (08:29)
[2018-02-03] MEDS: Sodium Chloride 0.9% 10 ML Syringe FLUSH PRN (08:31)
[2018-02-03] MEDS: Magnesium Sulfate/Water 2 GM in Premix Bag 1 BAG IV SCH ×2 (10:12→11:51)
--- NOTE | 2018-02-03 15:29 | PCM.PN ---
- General Info Date of Service: 02/03/18 Subjective Update: In to see Georgina. She is resting comfortably in bed. Multiple family members present. Patient reports she is feeling much better and family members agree that she appears back to baseline. Last oxygen desaturation event with likely coinciding seizure activity was yesterday evening around 20:30. Gabapentin was initiated at 21:00 and she has had no further episodes. She denies any weakness , numbness, or confusion. Denies chest pain or shortness of breath. Functional Status: Reports: Pain Controlled, Tolerating Diet, Ambulating, Urinating - Review of Systems General: Reports: No Symptoms. Denies: Fever, Weakness HEENT: Reports: No Symptoms. Denies: Sinus Congestion, Sore Throat Pulmonary: Reports: No Symptoms. Denies: Shortness of Breath, Cough Cardiovascular: Reports: No Symptoms. Denies: Chest Pain, Palpitations, Edema Gastrointestinal: Reports: No Symptoms. Denies: Abdominal Pain, Constipation, Diarrhea, Nausea, Vomiting Genitourinary: Reports: No Symptoms. Denies: Dysuria, Frequency Musculoskeletal: Reports: No Symptoms. Denies: Joint Pain Skin: Reports: No Symptoms. Denies: Cyanosis, Bruising Neurological: Reports: No Symptoms. Denies: Confusion, Dizziness, Headache, Numbness, Paresthesia, Seizure Psychiatric: Reports: No Symptoms. Denies: Confusion, Depression, Anxiety - Patient Data Vitals - Most Recent: Last Vital Signs Temp 97.9 F 02/03/18 11:56 Pulse 66 02/03/18 11:56 Resp 14 02/03/18 12:00 BP 150/83 H 02/03/18 11:56 Pulse Ox 93 L 02/03/18 12:00 Weight - Most Recent: 160 lb 1.6 oz I&O - Last 24 Hours: Intake & Output 02/03/18 02/03/18 02/03/18 06:59 14:59 22:59 Intake Total 270 Output Total 300 350 Balance -300 -80 Lab Results Last 24 Hours: Laboratory Results - last 24 hr 02/02/18 02/02/18 02/03/18 Range/Units 16:44 22:07 05:18 WBC 7.51 (3.98-10.04) K/mm3 RBC 4.07 (3.98-5.22) M/mm3 Hgb 11.8 (11.2-15.7) gm/L Hct 35.1 (34.1-44.9) % MCV 86.2 (79.4-94.8) fl MCH 29.0 (25.6-32.2) pg MCHC 33.6 (32.2-35.5) g/dl RDW Std Deviation 39.7 (36.4-46.3) fL Plt Count 269 (182-369) K/mm3 MPV 8.6 L (9.4-12.3) fl Neut % (Auto) 56.4 (34.0-71.1) % Lymph % (Auto) 31.2 (19.3-51.7) % [place] % (Auto) 11.2 (4.7-12.5) % Eos % (Auto) 0.8 (0.7-5.8) Baso % (Auto) 0.1 (0.1-1.2) % Neut # (Auto) 4.24 (1.56-6.13) K/mm3 Lymph # (Auto) 2.34 (1.18-3.74) K/mm3 [place] # (Auto) 0.84 H (0.24-0.36) K/mm3 Eos # (Auto) 0.06 (0.04-0.36) K/mm3 Baso # (Auto) 0.01 (0.01-0.08) K/mm3 PT (9.5-12.1) SECONDS INR APTT (24-31) SECONDS Sodium (136-145) mEq/L Potassium (3.5-5.1) mEq/L Chloride (98-107) mEq/L Carbon Dioxide (21-32) mEq/L Anion Gap (5-15) BUN (7-18) mg/dL Creatinine (0.55-1.02) mg/dL Est Cr Clr Drug Dosing mL/min Estimated GFR (MDRD) (>60) mL/min BUN/Creatinine Ratio (14-18) Glucose (83-115) mg/dL POC Glucose 120 H 136 H (83-110) mg/dL Calcium (8.5-10.1) mg/dL Magnesium (1.8-2.4) mg/dl 02/03/18 02/03/18 02/03/18 Range/Units 05:18 05:18 05:19 WBC (3.98-10.04) K/mm3 RBC (3.98-5.22) M/mm3 Hgb (11.2-15.7) gm/L Hct (34.1-44.9) % MCV (79.4-94.8) fl MCH (25.6-32.2) pg MCHC (32.2-35.5) g/dl RDW Std Deviation (36.4-46.3) fL Plt Count (182-369) K/mm3 MPV (9.4-12.3) fl Neut % (Auto) (34.0-71.1) % Lymph % (Auto) (19.3-51.7) % [place] % (Auto) (4.7-12.5) % Eos % (Auto) (0.7-5.8) Baso % (Auto) (0.1-1.2) % Neut # (Auto) (1.56-6.13) K/mm3 Lymph # (Auto) (1.18-3.74) K/mm3 [place] # (Auto) (0.24-0.36) K/mm3 Eos # (Auto) (0.04-0.36) K/mm3 Baso # (Auto) (0.01-0.08) K/mm3 PT 10.3 (9.5-12.1) SECONDS INR 0.94 APTT 27 (24-31) SECONDS Sodium 132 L (136-145) mEq/L Potassium 3.5 (3.5-5.1) mEq/L Chloride 94 L (98-107) mEq/L Carbon Dioxide 28 (21-32) mEq/L Anion Gap 13.5 (5-15) BUN 21 H (7-18) mg/dL Creatinine 1.0 (0.55-1.02) mg/dL Est Cr Clr Drug Dosing 38.75 mL/min Estimated GFR (MDRD) 53 (>60) mL/min BUN/Creatinine Ratio 21.0 H (14-18) Glucose 108 (83-115) mg/dL POC Glucose 116 H (83-110) mg/dL Calcium 9.1 (8.5-10.1) mg/dL Magnesium 1.3 L (1.8-2.4) mg/dl 02/03/18 Range/Units 10:44 WBC (3.98-10.04) K/mm3 RBC (3.98-5.22) M/mm3 Hgb (11.2-15.7) gm/L Hct (34.1-44.9) % MCV (79.4-94.8) fl MCH (25.6-32.2) pg MCHC (32.2-35.5) g/dl RDW Std Deviation (36.4-46.3) fL Plt Count (182-369) K/mm3 MPV (9.4-12.3) fl Neut % (Auto) (34.0-71.1) % Lymph % (Auto) (19.3-51.7) % [place] % (Auto) (4.7-12.5) % Eos % (Auto) (0.7-5.8) Baso % (Auto) (0.1-1.2) % Neut # (Auto) (1.56-6.13) K/mm3 Lymph # (Auto) (1.18-3.74) K/mm3 [place] # (Auto) (0.24-0.36) K/mm3 Eos # (Auto) (0.04-0.36) K/mm3 Baso # (Auto) (0.01-0.08) K/mm3 PT (9.5-12.1) SECONDS INR APTT (24-31) SECONDS Sodium (136-145) mEq/L Potassium (3.5-5.1) mEq/L Chloride (98-107) mEq/L Carbon Dioxide (21-32) mEq/L Anion Gap (5-15) BUN (7-18) mg/dL Creatinine (0.55-1.02) mg/dL Est Cr Clr Drug Dosing mL/min Estimated GFR (MDRD) (>60) mL/min BUN/Creatinine Ratio (14-18) Glucose (83-115) mg/dL POC Glucose 167 H (83-110) mg/dL Calcium (8.5-10.1) mg/dL Magnesium (1.8-2.4) mg/dl [place] Results Last 24 Hours: Microbiology 02/01/18 17:10 Streptococcus pneumoniae Antigen (M - Final Urine Med Orders - Current: Current Medications Acetaminophen (Tylenol) 650 mg PO Q4H PRN PRN Reason: Pain (Mild 1-3)/fever Hydrocodone Bitart/Acetaminophen ([place] 325-5 Mg) 1 tab PO Q4H PRN PRN Reason: Pain (moderate 4-6) Albuterol/Ipratropium (Duoneb 3.0-0.5 Mg/3 Ml) 3 ml NEB Q4H PRN PRN Reason: Shortness Of Breath/wheezing Ascorbic Acid (Vitamin C) 500 mg PO DAILY [facility] Last Admin: 02/03/18 08:29 Dose: 500 mg Aspirin (Halfprin) 81 mg PO BID [facility] Last Admin: 02/03/18 08:26 Dose: 81 mg Bisacodyl (Dulcolax) 5 mg PO DAILY PRN PRN Reason: Constipation Last Admin: 02/03/18 08:29 Dose: 5 mg Calcium Carbonate/Glycine (Calcium Carbonate) 1,200 mg PO DAILY [facility] Last Admin: 02/03/18 08:25 Dose: 1,200 mg Clopidogrel Bisulfate (Plavix) 75 mg PO DAILY [facility] Last Admin: 02/03/18 08:28 Dose: 75 mg Docusate Sodium (Colace) 100 mg PO BID PRN PRN Reason: Constipation Donepezil HCl (Aricept) 5 mg PO BEDTIME [facility] Last Admin: 02/02/18 20:42 Dose: 5 mg Enoxaparin Sodium (Lovenox) 40 mg SUBCUT Q24H [facility] Last Admin: 02/03/18 08:27 Dose: 40 mg Gabapentin (Neurontin) 100 mg PO BID [facility] Last Admin: 02/03/18 08:28 Dose: 100 mg Hydralazine HCl (Apresoline) 20 mg IVPUSH ONETIME PRN PRN Reason: Hypertension Hydrochlorothiazide (Hydrochlorothiazide) 12.5 mg PO DAILY [facility] Last Admin: 02/03/18 08:26 Dose: 12.5 mg Hydromorphone HCl (Dilaudid) 0.25 mg IVPUSH Q2H PRN PRN Reason: Pain (severe 7-10) Promethazine HCl 6.25 mg/ (Sodium Chloride) 50.25 mls @ 100 mls/hr IV Q6H PRN PRN Reason: Nausea/Vomiting Insulin Aspart (Novolog) 0 unit SUBCUT QIDACANDBED [facility]; Protocol Last Admin: 02/03/18 10:50 Dose: 1 unit Losartan Potassium (Cozaar) 25 mg PO BID [facility] Last Admin: 02/03/18 08:26 Dose: 25 mg Magnesium Hydroxide (Milk Of Magnesia) 30 ml PO Q12H PRN PRN Reason: Constipation Magnesium Sulfate (Pharmacy To Dose - Magnesium Replacement) 0 dose .XX ASDIRECTED PRN PRN Reason: RX TO WATCH MAG LEVELS. Metformin HCl (Glucophage) 1,000 mg PO BIDMEALS [facility] Last Admin: 02/03/18 06:40 Dose: 1,000 mg Metoprolol Succinate (Toprol Xl) 50 mg PO BID [facility] [place] Last Admin: 02/03/18 08:28 Dose: 50 mg Multivitamins (Thera) 1 each PO DAILY [facility] [place] Last Admin: 02/03/18 08:28 Dose: 1 each Oral Electrolytes (Thermotabs) 1 each PO ASDIRECTED ONE Stop: 02/03/18 15:05 Meloxicam 15 Mg 0 each PO BID PRN PRN Reason: Pain Polyethylene Glycol (Miralax) 17 gm PO DAILY PRN PRN Reason: Constipation Promethazine HCl (Phenergan) 25 mg PO Q6H PRN PRN Reason: Nausea/Vomiting Senna/Docusate Sodium (Senna Plus) 1 tab PO BID PRN PRN Reason: Constipation Sertraline HCl (Zoloft) 50 mg PO DAILY [facility] [place] Last Admin: 02/03/18 08:29 Dose: 50 mg Sodium Chloride (Saline Flush) 10 ml FLUSH ASDIRECTED PRN PRN Reason: Keep Vein Open Last Admin: 02/03/18 08:31 Dose: 10 ml Temazepam (Restoril) 7.5 mg PO BEDTIME PRN PRN Reason: Sleep Discontinued Medications Enoxaparin Sodium (Lovenox) 40 mg SUBCUT DAILY [facility] [place] Magnesium Sulfate 2 gm/ Premix 50 mls @ 25 mls/hr IV ONETIME ONE Stop: 02/01/18 15:27 Last Admin: 02/01/18 13:35 Dose: 25 mls/hr Magnesium Sulfate 2 gm/ Premix 50 mls @ 25 mls/hr IV ONETIME ONE Stop: 02/01/18 20:14 Last Admin: 02/01/18 18:58 Dose: 25 mls/hr Magnesium Sulfate 2 gm/ Premix 50 mls @ 25 mls/hr IV Q2H [facility] [place] Stop: 02/03/18 13:59 Last Admin: 02/03/18 11:51 Dose: 25 mls/hr Losartan Potassium (Cozaar) 25 mg PO DAILY [facility] [place] Last Admin: 02/03/18 08:30 Dose: Not Given Magnesium Sulfate (Pharmacy To Dose - Magnesium Replacement) 1 dose .XX ASDIRECTED [facility] Midazolam HCl (Versed 1 Mg/Ml) 1 mg IVPUSH ONETIME ONE Stop: 02/01/18 15:32 Last Admin: 02/01/18 15:35 Dose: 1 mg Simvastatin (Zocor) 10 mg PO BEDTIME [facility] - Exam Quality Assessment: DVT Prophylaxis. No: Supplemental Oxygen General: Alert, Oriented, Cooperative, No Acute Distress HEENT: Pupils Equal, Pupils Reactive, EOMI, Mucous Membr. Moist/[place] Neck: Supple. No: Lymphadenopathy Lungs: Clear to Auscultation, Normal Respiratory Effort. No: Rales, Rhonchi Cardiovascular: Regular Rate, Regular Rhythm, No Murmurs GI/Abdominal Exam: Normal Bowel Sounds, Soft, Non-Tender, No Distention (Female) Exam: Deferred Back Exam: Normal Inspection, Full Range of Motion Extremities: Normal Inspection, Normal Range of Motion, Non-Tender, No Pedal Edema Peripheral Pulses: 1+: Posterior Tibial (L), Posterior Tibial (R), Dorsalis Pedis (L), Dorsalis Pedis (R), 2+: Radial (L), Radial (R) Skin: Warm, Dry, Intact Neurological: No New Focal Deficit, Normal Gait, Normal Speech, Strength Equal Bilateral, Cranial Nerves Intact (grossly) Psy/Mental Status: Alert, Normal Affect, Normal Mood - Problem List Review Problem List Initiated/Reviewed/Updated: Yes - My Orders Last 24 Hours: My Active Orders 02/02/18 21:00 Donepezil [Aricept] 5 mg PO BEDTIME Losartan [Cozaar] 25 mg PO BID 02/03/18 09:00 Magnesium Rep Pharmacy to Dose [Pharmacy to Dose - Magnesium Replacement] 0 dose .XX ASDIRECTED PRN 02/03/18 15:04 Potassium Chloride/NaCl [Thermotabs] 1 each PO ASDIRECTED ONE 02/03/18 21:00 Potassium Chloride/NaCl [Thermotabs] 1 each PO BID 02/04/18 05:11 BASIC METABOLIC PANEL,BMP [CHEM] AM CBC WITH AUTO DIFF [HEME] AM INR,PT,PROTHROMBIN TIME [COAG] AM MAGNESIUM [CHEM] AM PTT,PARTIAL THROMBOPLSTIN TIME [COAG] AM 02/05/18 05:11 BASIC METABOLIC PANEL,BMP [CHEM] AM CBC WITH AUTO DIFF [HEME] AM INR,PT,PROTHROMBIN TIME [COAG] AM MAGNESIUM [CHEM] AM PTT,PARTIAL THROMBOPLSTIN TIME [COAG] AM 02/06/18 05:11 BASIC METABOLIC PANEL,BMP [CHEM] AM CBC WITH AUTO DIFF [HEME] AM INR,PT,PROTHROMBIN TIME [COAG] AM MAGNESIUM [CHEM] AM PTT,PARTIAL THROMBOPLSTIN TIME [COAG] AM - Plan Plan:: I/P: Acute: Altered mental status - r/o CVA, TIA - CHADSVASc score 5 --> will order Lovenox 40 mg inj daily - Cognitive issues at baseline - Head CT ordered in ED and read as senescent changes with no acute intracranial abnormality - MRI ordered in ED 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 and no acute abnormalities and stable from prior MRI - EEG ordered as patient was having episodes of questionable seizures with oxygen desaturations; EEG was nonspecific but showed left temporal region slowing and patient is clinically showing signs of focal seizures --> gabapentin 200 mg BID initiated; she will also need to have follow-up with neurology as outpatient - UA negative - Carotid US in 2017 with minimal plaque - 2D Echo pending - PT/OT - INPATIENT NURSING AIDE for swallow eval, eval/tx aphasia, and cognitive eval -Swallow eval normal -She is having no aphasia -Cog eval showed mild dementia - Continue Plavix and aspirin - Neuro checks change from q 1 hr to q 4 hr Dementia - Patient has cognitive issues at baseline - Vitamin B12 471 and TSH 1.166 - Cog eval showed mild dementia Hypertension - Elevated in ED 192/63 and this morning was 186/76 - Home meds include hydrochlorothiazide 12.5 mg po daily, losartan 25 mg po daily --> will increase losartan to 25 mg po BID - Will order hydralazine 20 mg IV prn BP > 160/90 - Resume above antihypertensives - Lipid panel: Total 199, LDL 145, HDL 47 --> She is unable to be on statin secondary to reported adverse reaction of muscle weakness from previous statin use; from a cardiovascular standpoint, statin therapy is still recommended - Heart healthy diet Hyperglycemia, mild - Glucose 118 in ED - Hx of Type 2 DM - Metformin 1000 mg po BID per home meds - Low dose SSI - Diabetic diet - Hgb A1c 6.4 - Monitor Hyponatremia - Na 132 - Will order thermotabs BID x 48 hr Renal insufficiency - Cr 1.1, eGFR 48 in ED - Appears to be close to patient's baseline - Monitor Hypomagnesemia - Mg 1.4 in ED, 1.7 today - Will replete Resolved: Oxygen desaturations, resolved - Patient had episodes in ED and 2 episodes overnight - She had period of decreased alertness and confusion yesterday - ABG, CXR 2 view, mycoplasma pneumoniae, strep pneumo Ag, and viral panel ordered and pending -ABG showed low pO2 and otherwise normal -Strep pneumo negative -Mycoplasma and viral panel pending - Nocturnal pulse oximetry showed minimal desaturations - EEG was nonspecific but showed left temporal region slowing and patient is clinically showing signs of focal seizures --> gabapentin 200 mg BID initiated; she will also need to have follow-up with neurology as outpatient - She does not need home O2 Leukocytosis, resolved - WBC 6.8 today (was 10.33) - UA negative - Monitor Chronic: Previous TIA Dementia Type 2 DM Afib dx'd 27 years ago with no issues since (as reported by family) --> she is not on any anticoagulation at this time HTN Cataracts b/l [place] Diverticulosis Plan: Admitted from ED to ICU status Other orders as indicated above CM/SW for discharge planning --> patient and family have decided on discharge to home with life alert and HH Routine AM labs Continue home meds Heart Healthy/Diabetic diet PT/OT INPATIENT NURSING AIDE for swallow eval, eval/tx aphasia and cognitive eval DVT Prophylaxis: SCDs and Lovenox 30 mg inj daily Ambulate as tolerated Code Status: Full PCP: Dr. Matthew Rodriguez Patient will require home health as she is no longer able to drive and will be homebound secondary to new seizure diagnosis. She will need residential, PT/ OT, and home safety eval.
[2018-02-03] MEDS ORDERED: Potassium Chloride/Sodium Chloride Tab PO ONE (15:30)
[2018-02-03] MEDS: Potassium Chloride/Sodium Chloride Tab PO SCH (20:16)
[2018-02-03] MEDS: Donepezil 10 MG Tab PO SCH (20:19)
[2018-02-04] MEDS: Insulin Aspart 100 Units/ML 3 ML Pen SUBCUT SCH ×4 (06:19→21:04)
[2018-02-04] MEDS: metFORMIN 500 MG Tab PO SCH ×2 (06:40→16:40)
[2018-02-04] MEDS: Enoxaparin 40 MG/0.4 ML Syringe SUBCUT SCH (08:02)
[2018-02-04] MEDS: Multivitamins,Therapeutic Tab PO SCH (08:02)
[2018-02-04] MEDS: Sertraline 50 MG Tab PO SCH (08:02)
[2018-02-04] MEDS: Ascorbic Acid 500 MG Tab PO SCH (08:03)
[2018-02-04] MEDS: Losartan 25 MG Tab PO SCH ×2 (08:03→20:18)
[2018-02-04] MEDS: Clopidogrel 75 MG Tab PO SCH (08:03)
[2018-02-04] MEDS: Aspirin 81 MG Tab.EC PO SCH ×2 (08:03→20:18)
[2018-02-04] MEDS: Gabapentin 100 MG Cap PO SCH ×2 (08:03→20:18)
[2018-02-04] MEDS: Metoprolol Succinate 50 MG Tab.ER PO SCH ×2 (08:03→20:17)
[2018-02-04] MEDS: Calcium Carbonate 600 MG Tab PO SCH (08:04)
[2018-02-04] MEDS: Potassium Chloride/Sodium Chloride Tab PO SCH ×2 (08:04→20:17)
[2018-02-04] MEDS: Hydrochlorothiazide 25 MG Tab PO SCH (08:05)
[2018-02-04] MEDS: Sodium Chloride 0.9% 10 ML Syringe FLUSH PRN (08:11)
[2018-02-04] MEDS ORDERED: Magnesium Sulfate/Water 4 GM in Premix Bag 1 BAG IV ONE (09:30)
--- NOTE | 2018-02-04 11:53 | PCM.PN ---
- General Info Date of Service: 02/04/18 Subjective Update: No complaints, expect DC after 48 hours without SZ activity. Pulse ox documenetd </=16 seconds with O2 saturation < 90%. Will not need O2 at DC. Functional Status: Reports: Tolerating Diet, Ambulating (extremely well.) - Review of Systems General: Reports: No Symptoms HEENT: Reports: No Symptoms Pulmonary: Reports: No Symptoms Cardiovascular: Reports: No Symptoms Gastrointestinal: Reports: No Symptoms Genitourinary: Reports: No Symptoms Musculoskeletal: Reports: No Symptoms Skin: Reports: No Symptoms Neurological: Reports: No Symptoms Psychiatric: Reports: No Symptoms - Patient Data Vitals - Most Recent: Last Vital Signs Temp 36.4 C 02/04/18 08:00 Pulse 72 02/04/18 08:03 Resp 18 02/04/18 08:00 BP 156/77 H 02/04/18 08:03 Pulse Ox 94 L 02/04/18 10:17 Weight - Most Recent: 73.21 kg I&O - Last 24 Hours: Intake & Output 02/03/18 02/04/18 02/04/18 22:59 06:59 14:59 Intake Total 360 400 Output Total 200 Balance 160 400 Lab Results Last 24 Hours: Laboratory Results - last 24 hr 02/03/18 02/03/18 02/04/18 Range/Units 17:16 21:36 05:40 WBC 6.74 (3.98-10.04) K/mm3 RBC 4.00 (3.98-5.22) M/mm3 Hgb 11.6 (11.2-15.7) gm/L Hct 34.8 (34.1-44.9) % MCV 87.0 (79.4-94.8) fl MCH 29.0 (25.6-32.2) pg MCHC 33.3 (32.2-35.5) g/dl RDW Std Deviation 39.8 (36.4-46.3) fL Plt Count 260 (182-369) K/mm3 MPV 8.7 L (9.4-12.3) fl Neut % (Auto) 56.1 (34.0-71.1) % Lymph % (Auto) 29.1 (19.3-51.7) % [place] % (Auto) 13.1 H (4.7-12.5) % Eos % (Auto) 1.3 (0.7-5.8) Baso % (Auto) 0.3 (0.1-1.2) % Neut # (Auto) 3.78 (1.56-6.13) K/mm3 Lymph # (Auto) 1.96 (1.18-3.74) K/mm3 [place] # (Auto) 0.88 H (0.24-0.36) K/mm3 Eos # (Auto) 0.09 (0.04-0.36) K/mm3 Baso # (Auto) 0.02 (0.01-0.08) K/mm3 PT (9.5-12.1) SECONDS INR APTT (24-31) SECONDS Sodium (136-145) mEq/L Potassium (3.5-5.1) mEq/L Chloride (98-107) mEq/L Carbon Dioxide (21-32) mEq/L Anion Gap (5-15) BUN (7-18) mg/dL Creatinine (0.55-1.02) mg/dL Est Cr Clr Drug Dosing mL/min Estimated GFR (MDRD) (>60) mL/min BUN/Creatinine Ratio (14-18) Glucose (83-115) mg/dL POC Glucose 166 H 121 H (83-110) mg/dL Calcium (8.5-10.1) mg/dL Magnesium (1.8-2.4) mg/dl 02/04/1818 02/04/18 Range/Units 05:40 05:40 05:52 WBC (3.98-10.04) K/mm3 RBC (3.98-5.22) M/mm3 Hgb (11.2-15.7) gm/L Hct (34.1-44.9) % MCV (79.4-94.8) fl MCH (25.6-32.2) pg MCHC (32.2-35.5) g/dl RDW Std Deviation (36.4-46.3) fL Plt Count (182-369) K/mm3 MPV (9.4-12.3) fl Neut % (Auto) (34.0-71.1) % Lymph % (Auto) (19.3-51.7) % [place] % (Auto) (4.7-12.5) % Eos % (Auto) (0.7-5.8) Baso % (Auto) (0.1-1.2) % Neut # (Auto) (1.56-6.13) K/mm3 Lymph # (Auto) (1.18-3.74) K/mm3 [place] # (Auto) (0.24-0.36) K/mm3 Eos # (Auto) (0.04-0.36) K/mm3 Baso # (Auto) (0.01-0.08) K/mm3 PT 9.8 (9.5-12.1) SECONDS INR < 0.93 APTT 25 (24-31) SECONDS Sodium 132 L (136-145) mEq/L Potassium 4.5 (3.5-5.1) mEq/L Chloride 96 L (98-107) mEq/L Carbon Dioxide 29 (21-32) mEq/L Anion Gap 11.5 (5-15) BUN 23 H (7-18) mg/dL Creatinine 1.0 (0.55-1.02) mg/dL Est Cr Clr Drug Dosing 38.75 mL/min Estimated GFR (MDRD) 53 (>60) mL/min BUN/Creatinine Ratio 23.0 H (14-18) Glucose 109 (83-115) mg/dL POC Glucose 115 H (83-110) mg/dL Calcium 9.2 (8.5-10.1) mg/dL Magnesium 1.6 L (1.8-2.4) mg/dl [place] Results Last 24 Hours: Microbiology 02/02/18 13:42 Respiratory Virus Panel (PCR) - Final Nasopharyngeal Swab Med Orders - Current: Current Medications Acetaminophen (Tylenol) 650 mg PO Q4H PRN PRN Reason: Pain (Mild 1-3)/fever Hydrocodone Bitart/Acetaminophen ([place] 325-5 Mg) 1 tab PO Q4H PRN PRN Reason: Pain (moderate 4-6) Albuterol/Ipratropium (Duoneb 3.0-0.5 Mg/3 Ml) 3 ml NEB Q4H PRN PRN Reason: Shortness Of Breath/wheezing Ascorbic Acid (Vitamin C) 500 mg PO DAILY [facility] Last Admin: 02/04/18 08:03 Dose: 500 mg Aspirin (Halfprin) 81 mg PO BID [facility] Last Admin: 02/04/18 08:03 Dose: 81 mg Bisacodyl (Dulcolax) 5 mg PO DAILY PRN PRN Reason: Constipation Last Admin: 02/03/18 08:29 Dose: 5 mg Calcium Carbonate/Glycine (Calcium Carbonate) 1,200 mg PO DAILY [facility] Last Admin: 02/04/18 08:04 Dose: 1,200 mg Clopidogrel Bisulfate (Plavix) 75 mg PO DAILY [facility] Last Admin: 02/04/18 08:03 Dose: 75 mg Docusate Sodium (Colace) 100 mg PO BID PRN PRN Reason: Constipation Donepezil HCl (Aricept) 5 mg PO BEDTIME [facility] Last Admin: 02/03/18 20:19 Dose: 5 mg Enoxaparin Sodium (Lovenox) 40 mg SUBCUT Q24H [facility] Last Admin: 02/04/18 08:02 Dose: 40 mg Gabapentin (Neurontin) 100 mg PO BID [facility] Last Admin: 02/04/18 08:03 Dose: 100 mg Hydralazine HCl (Apresoline) 20 mg IVPUSH ONETIME PRN PRN Reason: Hypertension Hydrochlorothiazide (Hydrochlorothiazide) 12.5 mg PO DAILY [facility] Last Admin: 02/04/18 08:05 Dose: 12.5 mg Hydromorphone HCl (Dilaudid) 0.25 mg IVPUSH Q2H PRN PRN Reason: Pain (severe 7-10) Promethazine HCl 6.25 mg/ (Sodium Chloride) 50.25 mls @ 100 mls/hr IV Q6H PRN PRN Reason: Nausea/Vomiting Magnesium Sulfate 4 gm/ Premix 100 mls @ 25 mls/hr IV ONETIME ONE Stop: 02/04/18 13:29 Last Admin: 02/04/18 09:23 Dose: 25 mls/hr Insulin Aspart (Novolog) 0 unit SUBCUT QIDACANDBED [facility]; Protocol Last Admin: 02/04/18 06:19 Dose: Not Given Losartan Potassium (Cozaar) 25 mg PO BID [facility] Last Admin: 02/04/18 08:03 Dose: 25 mg Magnesium Hydroxide (Milk Of Magnesia) 30 ml PO Q12H PRN PRN Reason: Constipation Magnesium Sulfate (Pharmacy To Dose - Magnesium Replacement) 0 dose .XX ASDIRECTED PRN PRN Reason: RX TO WATCH MAG LEVELS. Metformin HCl (Glucophage) 1,000 mg PO BIDMEALS [facility] Last Admin: 02/04/18 06:40 Dose: 1,000 mg Metoprolol Succinate (Toprol Xl) 50 mg PO BID [facility] Last Admin: 02/04/18 08:03 Dose: 50 mg Multivitamins (Thera) 1 each PO DAILY [facility] Last Admin: 02/04/18 08:02 Dose: 1 each Oral Electrolytes (Thermotabs) 1 each PO BID [facility] Stop: 02/04/18 21:01 Last Admin: 02/04/18 08:04 Dose: 1 each Meloxicam 15 Mg 0 each PO BID PRN PRN Reason: Pain Polyethylene Glycol (Miralax) 17 gm PO DAILY PRN PRN Reason: Constipation Promethazine HCl (Phenergan) 25 mg PO Q6H PRN PRN Reason: Nausea/Vomiting Senna/Docusate Sodium (Senna Plus) 1 tab PO BID PRN PRN Reason: Constipation Sertraline HCl (Zoloft) 50 mg PO DAILY [facility] Last Admin: 02/04/18 08:02 Dose: 50 mg Sodium Chloride (Saline Flush) 10 ml FLUSH ASDIRECTED PRN PRN Reason: Keep Vein Open Last Admin: 02/04/18 08:11 Dose: 10 ml Temazepam (Restoril) 7.5 mg PO BEDTIME PRN PRN Reason: Sleep Discontinued Medications Enoxaparin Sodium (Lovenox) 40 mg SUBCUT DAILY [facility] Magnesium Sulfate 2 gm/ Premix 50 mls @ 25 mls/hr IV ONETIME ONE Stop: 02/01/18 15:27 Last Admin: 02/01/18 13:35 Dose: 25 mls/hr Magnesium Sulfate 2 gm/ Premix 50 mls @ 25 mls/hr IV ONETIME ONE Stop: 02/01/18 20:14 Last Admin: 02/01/18 18:58 Dose: 25 mls/hr Magnesium Sulfate 2 gm/ Premix 50 mls @ 25 mls/hr IV Q2H [facility] Stop: 02/03/18 13:59 Last Admin: 02/03/18 11:51 Dose: 25 mls/hr Losartan Potassium (Cozaar) 25 mg PO DAILY [facility] Last Admin: 02/03/18 08:30 Dose: Not Given Magnesium Sulfate (Pharmacy To Dose - Magnesium Replacement) 1 dose .XX ASDIRECTED [facility] Midazolam HCl (Versed 1 Mg/Ml) 1 mg IVPUSH ONETIME ONE Stop: 02/01/18 15:32 Last Admin: 02/01/18 15:35 Dose: 1 mg Oral Electrolytes (Thermotabs) 1 each PO ONETIME ONE Stop: 02/03/18 15:31 Last Admin: 02/03/18 15:39 Dose: 1 each Simvastatin (Zocor) 10 mg PO BEDTIME [facility] Last Admin: 02/03/18 19:31 Dose: Not Given - Exam Quality Assessment: DVT Prophylaxis General: Alert, Oriented, Cooperative, No Acute Distress HEENT: Pupils Equal, Pupils Reactive, EOMI Neck: Supple, Trachea Midline, No JVD Lungs: Normal Respiratory Effort Cardiovascular: Regular Rate, Regular Rhythm GI/Abdominal Exam: Normal Bowel Sounds, Soft, Non-Tender, No Organomegaly, No Distention (Female) Exam: Deferred Back Exam: Normal Inspection Extremities: Normal Inspection, Normal Range of Motion, Non-Tender, No Pedal Edema, Normal Capillary Refill Skin: Warm Neurological: No New Focal Deficit, Normal Gait, Normal Speech, Cranial Nerves Intact Psy/Mental Status: Alert, Normal Affect, Normal Mood - Problem List Review Problem List Initiated/Reviewed/Updated: Yes - My Orders Last 24 Hours: My Active Orders 02/04/18 10:23 Patient Status [ADT] Routine - Plan Plan:: I/P: Acute: Altered mental status - r/o CVA, TIA - CHADSVASc score 5 --> will order Lovenox 40 mg inj daily - Cognitive issues at baseline - Head CT ordered in ED and read as senescent changes with no acute intracranial abnormality - MRI ordered in ED 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 and no acute abnormalities and stable from prior MRI - EEG ordered as patient was having episodes of questionable seizures with oxygen desaturations; EEG was nonspecific but showed left temporal region slowing and patient is clinically showing signs of focal seizures --> gabapentin 200 mg BID initiated; she will also need to have follow-up with neurology as outpatient - UA negative - Carotid US in 2017 with minimal plaque - 2D Echo pending - PT/OT - KITCHEN HAND for swallow eval, eval/tx aphasia, and cognitive eval -Swallow eval normal -She is having no aphasia -Cog eval showed mild dementia - Continue Plavix and aspirin - Neuro checks change from q 1 hr to q 4 hr Dementia - Patient has cognitive issues at baseline - Vitamin B12 471 and TSH 1.166 - Cog eval showed mild dementia Hypertension - Elevated in ED 192/63 and this morning was 186/76 - Home meds include hydrochlorothiazide 12.5 mg po daily, losartan 25 mg po daily --> will increase losartan to 25 mg po BID - Will order hydralazine 20 mg IV prn BP > 160/90 - Resume above antihypertensives - Lipid panel: Total 199, LDL 145, HDL 47 --> She is unable to be on statin secondary to reported adverse reaction of muscle weakness from previous statin use; from a cardiovascular standpoint, statin therapy is still recommended - Heart healthy diet Hyperglycemia, mild - Glucose 118 in ED - Hx of Type 2 DM - Metformin 1000 mg po BID per home meds - Low dose SSI - Diabetic diet - Hgb A1c 6.4 - Monitor Hyponatremia - Na 132 - Will order thermotabs BID x 48 hr Renal insufficiency - Cr 1.1, eGFR 48 in ED - Appears to be close to patient's baseline - Monitor Hypomagnesemia - Mg 1.4 in ED, 1.7 today - Will replete Resolved: Oxygen desaturations, resolved - Patient had episodes in ED and 2 episodes overnight - She had period of decreased alertness and confusion yesterday - ABG, CXR 2 view, mycoplasma pneumoniae, strep pneumo Ag, and viral panel ordered and pending -ABG showed low pO2 and otherwise normal -Strep pneumo negative -Mycoplasma and viral panel pending - Nocturnal pulse oximetry showed minimal desaturations - EEG was nonspecific but showed left temporal region slowing and patient is clinically showing signs of focal seizures --> gabapentin 200 mg BID initiated; she will also need to have follow-up with neurology as outpatient - She does not need home O2 Leukocytosis, resolved - WBC 6.8 today (was 10.33) - UA negative - Monitor Chronic: Previous TIA Dementia Type 2 DM Afib dx'd 27 years ago with no issues since (as reported by family) --> she is not on any anticoagulation at this time HTN Cataracts b/l [place] Diverticulosis Plan: Admitted from ED to ICU status Other orders as indicated above CM/SW for discharge planning --> patient and family have decided on discharge to home with life alert and HH Routine AM labs Continue home meds Heart Healthy/Diabetic diet PT/OT KITCHEN HAND for swallow eval, eval/tx aphasia and cognitive eval DVT Prophylaxis: SCDs and Lovenox 30 mg inj daily Ambulate as tolerated Code Status: Full PCP: Dr. Matthew Rodriguez Patient will require home health as she is no longer able to drive and will be homebound secondary to new seizure diagnosis. She will need halfway, PT/OT, and home safety eval. LOS>96 hours, close monitoring and treatment for SZ activity Change to MS w/ telemetry, DC home in the AM.
[2018-02-04] MEDS: Donepezil 10 MG Tab PO SCH (20:18)
[2018-02-05] MEDS ORDERED: Gabapentin 100 MG Cap PO SCH
[2018-02-05] MEDS: metFORMIN 500 MG Tab PO SCH (06:36)
[2018-02-05] MEDS: Insulin Aspart 100 Units/ML 3 ML Pen SUBCUT SCH (06:39)
[2018-02-05] MEDS: Sertraline 50 MG Tab PO SCH (08:34)
[2018-02-05] MEDS: Clopidogrel 75 MG Tab PO SCH (08:34)
[2018-02-05] MEDS: Metoprolol Succinate 50 MG Tab.ER PO SCH (08:34)
[2018-02-05] MEDS: Gabapentin 100 MG Cap PO SCH (08:36)
[2018-02-05] MEDS: Calcium Carbonate 600 MG Tab PO SCH (08:36)
[2018-02-05] MEDS: Hydrochlorothiazide 25 MG Tab PO SCH (08:37)
[2018-02-05] MEDS: Multivitamins,Therapeutic Tab PO SCH (08:37)
[2018-02-05] MEDS: Ascorbic Acid 500 MG Tab PO SCH (08:37)
[2018-02-05] MEDS: Aspirin 81 MG Tab.EC PO SCH (08:37)
[2018-02-05] MEDS: Losartan 25 MG Tab PO SCH (08:37)
[2018-02-05 08:38] VITALS: BP 150/63
[2018-02-05] MEDS: Enoxaparin 40 MG/0.4 ML Syringe SUBCUT SCH (08:38)
--- NOTE | 2018-02-05 09:12 | PCM.DCSUM1 ---
Discharge Summary - Hospital Course Free Text/Narrative:: New neurological diagnosis, Focal seizure (Complex Partial Seizure) listed in report, patient will need skilled Home Health Services for disease assessment and management. Vital signs, weights, physical and occupational therapy. She is homebound due to her new diagnosis of seizure disorder; she will need a home safety evaluation. The patient may not drive until she has been reassessed by her healthcare providers. HPI Initial Comments: his is an 82 y/o female with PMHx significant for previous TIA, dementia, type 2 DM, afib dx'd 27 years ago with no issues since, HTN, cataracts, b/l POARCH, and diverticulosis who comes in altered mental status. She has had episodes of confusion prior to today with multiple visits to the ED. Most recent ED visit for confusion was in October 2017. Work-up in ED included CBC significant for WBC 10.33. CMP significant for Na 133 , Cl 95, Cr 1.1, eGFR 48, glucose 111. Mg low at 1.3. Troponin <0.017. Head CT ordered in ED and read as senescent changes with no acute intracranial abnormality. CXR ordered in ED and read as nothing acute. MRI ordered in ED and 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, minimal senescent change, no acute abnormalities and stable from prior MRI. 2D echo ordered in ED and are pending. Patient and daughter report that she is usually independent at home. Patient is able to give a vague history of why she is in the hospital, and states she woke up with a headache. Daughter further elaborates by saying that patient's neighbor called her stating that patient was saying she did not feel well. Daughter noticed some confusion and brought her to the ED. Daughter also reports that patient is answering questions but is usually more inquisitive and joking when questions are asked of her. Daughter states cognitive eval has been performed and results were indicative of dementia but not Alzheimers. She is subsequently admitted observation/ICU status. She is a never smoker. She is a full code. PCP is Dr. Matthew Rodriguez. Diagnosis: Stroke: No - Discharge Data Discharge Date: 02/05/18 Discharge Disposition: Home, W Home Health Agency 06 Condition: Good - Discharge Diagnosis/Problem(s) (1) Seizure disorder SNOMED Code(s): 233915761 ICD Code: G40.909 - EPILEPSY, UNSP, NOT INTRACTABLE, WITHOUT STATUS EPILEPTICUS Status: Acute (2) Hypertension SNOMED Code(s): 01501641 ICD Code: I10 - ESSENTIAL (PRIMARY) HYPERTENSION Status: Chronic (3) Diabetes mellitus SNOMED Code(s): 11280567 ICD Code: E11.9 - TYPE 2 DIABETES MELLITUS WITHOUT COMPLICATIONS Status: Chronic (4) Hypomagnesemia SNOMED Code(s): 606768400 ICD Code: E83.42 - HYPOMAGNESEMIA Status: Acute - Patient Summary/Data Consults: Consultations 02/01/18 17:03 Consult to Case Management [CONS] Routine Consult to Service Trainer [CONS] Routine Consult to Renovator Machine Operator [CONS] Routine OT Evaluation and Treatment [CONS] Routine PT Evaluation and Treatment [CONS] Routine Respiratory Care Assess and Treatment [CONS] Routine AUTHOR Evaluation and Treatment [CONS] Routine 02/01/18 17:40 AUTHOR Evaluation and Treatment [CONS] Routine 02/01/18 18:03 AUTHOR Eval and Treat [AUTHOR Evaluation and Treatment] [CONS] Routine Recommended Follow-up Testing/Procedures: PCP follow up 1 week Neurology Consult (to be arranged), post hospitalization 4-8 weeks Note: --Should not drive until seen by provider; patient has been seen by Speech path and has only mild cognitive impairment. --Neurologic event, Complex partial seizure/focal seizure which resolved after Neurontin 100 mg BID --Hypoxic events stopped after seizure activity was abolished --Home Independent for now, additional assistance will be determined, family/ patient declined.Acute: - Patient Instructions Diet: Heart Healthy Diet, Diabetic Diet Activity: As Tolerated Driving: Do Not Drive (Needs follow up with provider with recent seizure activity) Showering/Bathing: May Shower Notify Provider of: Increased Pain, Nausea and/or Vomiting - Discharge Plan Prescriptions/Med Rec: Aspirin [Halfprin] 81 mg PO DAILY #30 tab.ec Losartan [Cozaar] 25 mg PO BID #60 tablet Magnesium Oxide 400 mg PO BID #30 tablet Home Medications: Home Meds Calcium Carbonate [Calcium] 2 tab PO DAILY 05/05/15 [History] Donepezil [Aricept] 5 mg PO BEDTIME 05/05/15 [History] Hydrochlorothiazide 12.5 mg PO DAILY 05/05/15 [History] Multivitamins 1 tab PO DAILY 05/05/15 [History] metFORMIN [Glucophage] 1,000 mg PO BIDMEALS 05/05/15 [History] Sertraline [Zoloft] 50 mg PO DAILY tablet 05/07/15 [Rx] Metoprolol Succinate [Toprol XL] 50 mg PO BID 08/08/16 [History] Ascorbic Acid [Acerola C] 500 mg PO DAILY 11/10/17 [History] Clopidogrel Bisulfate [Plavix] 75 mg PO DAILY 11/10/17 [History] Aspirin [Halfprin] 81 mg PO DAILY #30 tab.ec 02/05/18 [Rx] Losartan [Cozaar] 25 mg PO BID #60 tablet 02/05/18 [Rx] Magnesium Oxide 400 mg PO BID #30 tablet 02/05/18 [Rx] Other Amb Orders: BASIC METABOLIC PANEL,BMP [CHEM] Time Frame: 02/10/18, Facility: [facility], Location: [facility] [CHEM] Time Frame: 02/10/18, Facility: [facility], Location: [facility] [facility] [employer] [facility] - [facility] Patient Handouts: Living With Alzheimer Disease, Type 2 Diabetes Mellitus, Diagnosis, Adult, Heart Disease Prevention Forms: ED Department Discharge Referrals: Matthew Rodriguez MD [Primary Care Provider] - 02/13/18 - Discharge Summary/Plan Comment DC Time >30 min.: No Discharge Summary/Plan Comment: Impression: Altered mental status - r/o CVA, TIA - CHADSVASc score 5, did not start NOAC after 2D echo WNL; continue Plavix 75 mg daily; Lovenox 40 mg inj daily used for DVT prophylaxis only. - Cognitive, minimal deficits; unremarkable Speech Path assessment - Head CT ordered in ED and read as senescent changes with no acute intracranial abnormality - MRI ordered in ED 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 and no acute abnormalities and stable from prior MRI - EEG ordered as patient was having episodes of questionable seizures with oxygen desaturations; EEG was nonspecific but showed left temporal region slowing and patient is clinically showing signs of focal seizures --> gabapentin 200 mg BID initiated; she will also need to have follow-up with neurology as outpatient - UA negative - Carotid US in 2017 with minimal plaque - 2D Echo pending - PT/OT - AUTHOR for swallow eval, eval/tx aphasia, and cognitive eval -Swallow eval normal -She is having no aphasia -Cog eval showed mild dementia - Continue Plavix and aspirin - Neuro checks change from q 1 hr to q 4 hr Dementia - Patient has cognitive issues at baseline - Vitamin B12 471 and TSH 1.166 - Cog eval showed mild dementia Hypertension - Elevated in ED 192/63 and this morning was 186/76 - Home meds include hydrochlorothiazide 12.5 mg po daily, losartan 25 mg po daily --> will increase losartan to 25 mg po BID - Will order hydralazine 20 mg IV prn BP > 160/90 - Resume above antihypertensives - Lipid panel: Total 199, LDL 145, HDL 47 --> She is unable to be on statin secondary to reported adverse reaction of muscle weakness from previous statin use; from a cardiovascular standpoint, statin therapy is still recommended - Heart healthy diet Hyperglycemia, mild - Glucose 118 in ED - Hx of Type 2 DM - Metformin 1000 mg po BID per home meds - Low dose SSI - Diabetic diet - Hgb A1c 6.4 - Monitor Hyponatremia - Na 132 - Will order thermotabs BID x 48 hr Renal insufficiency - Cr 1.1, eGFR 48 in ED - Appears to be close to patient's baseline - Monitor Hypomagnesemia - Mg 1.4 in ED, 1.7 today - Will replete Resolved: Oxygen desaturations, resolved - Patient had episodes in ED and 2 episodes overnight - She had period of decreased alertness and confusion yesterday - ABG, CXR 2 view, mycoplasma pneumoniae, strep pneumo Ag, and viral panel ordered and pending -ABG showed low pO2 and otherwise normal -Strep pneumo negative -Mycoplasma and viral panel were negative - Nocturnal pulse oximetry showed minimal desaturations - EEG was nonspecific but showed left temporal region slowing and patient is clinically showing signs of focal seizures --> gabapentin initiated; she will also need to have follow-up with neurology as outpatient - She does not need home O2 Leukocytosis, resolved - WBC 6.8 today (was 10.33) - UA negative - Monitor Chronic: Previous TIA Dementia Type 2 DM Afib dx'd 27 years ago with no issues since (as reported by family) --> she is not on any anticoagulation at this time HTN Cataracts b/l POARCH Diverticulosis Plan: Admitted from ED to ICU status Other orders as indicated above CM/SW for discharge planning --> patient and family have decided on discharge to home with life alert and Routine AM labs Continue home meds Heart Healthy/Diabetic diet PT/OT AUTHOR for swallow eval, eval/tx aphasia and cognitive eval DVT Prophylaxis: SCDs and Lovenox 30 mg inj daily Ambulate as tolerated Code Status: Full PCP: Dr. Matthew Rodriguez Patient will require home health as she is no longer able to drive and will be homebound secondary to new seizure diagnosis. She will need chcf, PT/OT, and home safety eval. LOS>96 hours, close monitoring and treatment for SZ activity Change to MS w/ telemetry, DC home in the AM. - General Info Date of Service: 02/01/18 Functional Status: Reports: Pain Controlled, Tolerating Diet, Ambulating, Urinating - Review of Systems General: Reports: No Symptoms HEENT: Reports: No Symptoms Pulmonary: Reports: No Symptoms Cardiovascular: Reports: No Symptoms Gastrointestinal: Reports: No Symptoms Genitourinary: Reports: No Symptoms Musculoskeletal: Reports: No Symptoms Skin: Reports: No Symptoms Neurological: Reports: No Symptoms Psychiatric: Reports: No Symptoms - Patient Data Vitals - Most Recent: Last Vital Signs Temp 36.7 C 02/05/18 04:00 Pulse 69 02/05/18 08:34 Resp 12 02/05/18 04:00 BP 150/63 H 02/05/18 08:37 Pulse Ox 92 L 02/05/18 04:00 Weight - Most Recent: 74.344 kg I&O - Last 24 hours: Intake & Output 02/04/18 02/05/18 02/05/18 22:59 06:59 14:59 Intake Total 330 300 Output Total 550 700 Balance -220 -400 Lab Results - Last 24 hrs: Laboratory Results - last 24 hr 02/04/18 02/04/18 02/04/18 Range/Units 12:02 16:37 20:24 POC Glucose 118 H 98 118 H (83-110) mg/dL 02/05/18 Range/Units 06:36 POC Glucose 101 (83-110) mg/dL Med Orders - Current: Current Medications Acetaminophen (Tylenol) 650 mg PO Q4H PRN PRN Reason: Pain (Mild 1-3)/fever Hydrocodone Bitart/Acetaminophen ([place] 325-5 Mg) 1 tab PO Q4H PRN PRN Reason: Pain (moderate 4-6) Albuterol/Ipratropium (Duoneb 3.0-0.5 Mg/3 Ml) 3 ml NEB Q4H PRN PRN Reason: Shortness Of Breath/wheezing Ascorbic Acid (Vitamin C) 500 mg PO DAILY [facility] Last Admin: 02/05/18 08:37 Dose: 500 mg Aspirin (Halfprin) 81 mg PO BID [facility] Last Admin: 02/05/18 08:37 Dose: 81 mg Bisacodyl (Dulcolax) 5 mg PO DAILY PRN PRN Reason: Constipation Last Admin: 02/03/18 08:29 Dose: 5 mg Calcium Carbonate/Glycine (Calcium Carbonate) 1,200 mg PO DAILY [facility] Last Admin: 02/05/18 08:36 Dose: 1,200 mg Clopidogrel Bisulfate (Plavix) 75 mg PO DAILY [facility] Last Admin: 02/05/18 08:34 Dose: 75 mg Docusate Sodium (Colace) 100 mg PO BID PRN PRN Reason: Constipation Donepezil HCl (Aricept) 5 mg PO BEDTIME [facility] Last Admin: 02/04/18 20:18 Dose: 5 mg Enoxaparin Sodium (Lovenox) 40 mg SUBCUT Q24H [facility] Last Admin: 02/05/18 08:38 Dose: 40 mg Gabapentin (Neurontin) 100 mg PO BID [facility] Last Admin: 02/05/18 08:36 Dose: 100 mg Hydralazine HCl (Apresoline) 20 mg IVPUSH ONETIME PRN PRN Reason: Hypertension Hydrochlorothiazide (Hydrochlorothiazide) 12.5 mg PO DAILY [facility] Last Admin: 02/05/18 08:37 Dose: 12.5 mg Hydromorphone HCl (Dilaudid) 0.25 mg IVPUSH Q2H PRN PRN Reason: Pain (severe 7-10) Promethazine HCl 6.25 mg/ (Sodium Chloride) 50.25 mls @ 100 mls/hr IV Q6H PRN PRN Reason: Nausea/Vomiting Magnesium Sulfate 2 gm/ Premix 50 mls @ 25 mls/hr IV ONETIME ONE Stop: 02/05/18 11:14 Insulin Aspart (Novolog) 0 unit SUBCUT QIDACANDBED [facility]; Protocol Last Admin: 02/05/18 06:39 Dose: Not Given Losartan Potassium (Cozaar) 25 mg PO BID [facility] Last Admin: 02/05/18 08:37 Dose: 25 mg Magnesium Hydroxide (Milk Of Magnesia) 30 ml PO Q12H PRN PRN Reason: Constipation Magnesium Oxide (Magnesium Oxide) 400 mg PO BID [facility] Magnesium Sulfate (Pharmacy To Dose - Magnesium Replacement) 0 dose .XX ASDIRECTED PRN PRN Reason: RX TO WATCH MAG LEVELS. Metformin HCl (Glucophage) 1,000 mg PO BIDMEALS [facility] Last Admin: 02/05/18 06:36 Dose: 1,000 mg Metoprolol Succinate (Toprol Xl) 50 mg PO BID [facility] Last Admin: 02/05/18 08:34 Dose: 50 mg Multivitamins (Thera) 1 each PO DAILY [facility] Last Admin: 02/05/18 08:37 Dose: 1 each Meloxicam 15 Mg 0 each PO BID PRN PRN Reason: Pain Polyethylene Glycol (Miralax) 17 gm PO DAILY PRN PRN Reason: Constipation Promethazine HCl (Phenergan) 25 mg PO Q6H PRN PRN Reason: Nausea/Vomiting Senna/Docusate Sodium (Senna Plus) 1 tab PO BID PRN PRN Reason: Constipation Sertraline HCl (Zoloft) 50 mg PO DAILY [facility] Last Admin: 02/05/18 08:34 Dose: 50 mg Sodium Chloride (Saline Flush) 10 ml FLUSH ASDIRECTED PRN PRN Reason: Keep Vein Open Last Admin: 02/04/18 08:11 Dose: 10 ml Temazepam (Restoril) 7.5 mg PO BEDTIME PRN PRN Reason: Sleep Discontinued Medications Enoxaparin Sodium (Lovenox) 40 mg SUBCUT DAILY [facility] Magnesium Sulfate 2 gm/ Premix 50 mls @ 25 mls/hr IV ONETIME ONE Stop: 02/01/18 15:27 Last Admin: 02/01/18 13:35 Dose: 25 mls/hr Magnesium Sulfate 2 gm/ Premix 50 mls @ 25 mls/hr IV ONETIME ONE Stop: 02/01/18 20:14 Last Admin: 02/01/18 18:58 Dose: 25 mls/hr Magnesium Sulfate 2 gm/ Premix 50 mls @ 25 mls/hr IV Q2H [facility] Stop: 02/03/18 13:59 Last Admin: 02/03/18 11:51 Dose: 25 mls/hr Magnesium Sulfate 4 gm/ Premix 100 mls @ 25 mls/hr IV ONETIME ONE Stop: 02/04/18 13:29 Last Admin: 02/04/18 09:23 Dose: 25 mls/hr Magnesium Sulfate 4 gm/ Premix 100 mls @ 25 mls/hr IV ONETIME ONE Stop: 02/05/18 13:14 Losartan Potassium (Cozaar) 25 mg PO DAILY [facility] Last Admin: 02/03/18 08:30 Dose: Not Given Magnesium Sulfate (Pharmacy To Dose - Magnesium Replacement) 1 dose .XX ASDIRECTED [facility] Midazolam HCl (Versed 1 Mg/Ml) 1 mg IVPUSH ONETIME ONE Stop: 02/01/18 15:32 Last Admin: 02/01/18 15:35 Dose: 1 mg Oral Electrolytes (Thermotabs) 1 each PO ONETIME ONE Stop: 02/03/18 15:31 Last Admin: 02/03/18 15:39 Dose: 1 each Oral Electrolytes (Thermotabs) 1 each PO BID [facility] Stop: 02/04/18 21:01 Last Admin: 02/04/18 20:17 Dose: 1 each Simvastatin (Zocor) 10 mg PO BEDTIME [facility] Last Admin: 02/03/18 19:31 Dose: Not Given - Exam Quality Assessment: Reports: DVT Prophylaxis General: Reports: Alert, Oriented, Cooperative, No Acute Distress HEENT: Reports: Pupils Equal, Pupils Reactive, EOMI Neck: Reports: Trachea Midline, No JVD Lungs: Reports: Clear to Auscultation, Normal Respiratory Effort Cardiovascular: Reports: Regular Rate, Regular Rhythm GI/Abdominal Exam: Normal Bowel Sounds, Soft, Non-Tender, No Organomegaly, No Distention (Female) Exam: Deferred Rectal (Female) Exam: Deferred Back Exam: Reports: Normal Inspection Extremities: Normal Inspection, No Pedal Edema, Normal Capillary Refill Skin: Reports: Warm, Dry, Intact Neurological: Reports: No New Focal Deficit, Normal Gait, Normal Speech Psy/Mental Status: Reports: Alert, Normal Affect, Normal Mood
[2018-02-05] MEDS ORDERED: Magnesium Sulfate/Water 2 GM in Premix Bag 1 BAG IV ONE (09:15)
[2018-02-05] MEDS ORDERED: Magnesium Sulfate/Water 4 GM in Premix Bag 1 BAG IV ONE (09:15)
[2018-02-05] MEDS ORDERED: Magnesium Oxide 400 MG Tab PO SCH (21:00)
== END 2018-02-05 10:27 | disposition home health service (06) | DRG 101 ==
LOC: JD.ED 11:34 → JD.ICU 16:38
PROVIDERS: ADMIT Internal Medicine; ATTEND Internal Medicine Cardiovascular Disease
DX: G45.9 Transient cerebral ischemic attack, unspecified (principal); R41.0 Disorientation, unspecified; G40.909 Epilepsy, unspecified, not intractable, without status epilepticus; E87.1 Hypo-osmolality and hyponatremia; Z86.73 Personal history of transient ischemic attack (TIA), and cerebral infarction without residual deficits; E11.9 Type 2 diabetes mellitus without complications; I48.91 Unspecified atrial fibrillation; I10 Essential (primary) hypertension; Z79.82 Long term (current) use of aspirin; M19.90 Unspecified osteoarthritis, unspecified site; F03.90 Unspecified dementia, unspecified severity, without behavioral disturbance, psychotic disturbance, mood disturbance, and anxiety; E11.65 Type 2 diabetes mellitus with hyperglycemia; H54.7 Unspecified visual loss; H91.93 Unspecified hearing loss, bilateral; K57.90 Diverticulosis of intestine, part unspecified, without perforation or abscess without bleeding; N28.9 Disorder of kidney and ureter, unspecified; E83.42 Hypomagnesemia; Z85.3 Personal history of malignant neoplasm of breast; Z96.619 Presence of unspecified artificial shoulder joint; Z79.84 Long term (current) use of oral hypoglycemic drugs; Z79.02 Long term (current) use of antithrombotics/antiplatelets; Z79.899 Other long term (current) drug therapy; Z88.8 Allergy status to other drugs, medicaments and biological substances
CPT/HCPCS: 36415; 70450; 70551; 71045; 80053; 80061; 82607; 82962; 83036; 83735; 84443; 84484; 85025; 85610; 93005; 96365; 96375; 99285; J2250; J7050; 36600; 71046; 71046-26; 80048; 81001; 82803; 85730; 86738; 87486; 87581; 87633; 87798; 87899; 92523-GN; 92610-GN; 93010; 93306; 94762; 95816; 96125-GN; 97161-GP; 97165-GO; A9270-GY; J1650; J1815-GY; J3475

== ENCOUNTER 2020-05-05 08:42 | Emergency (ER) | payer MEDICARE, OTHER ==
[2020-05-05 08:52] VITALS: BP 172/81; PULSE 76
--- NOTE | 2020-05-05 09:03 | EDM.PDOC ---
ED HPI GENERAL MEDICAL PROBLEM - General Chief Complaint: Head Injury Stated Complaint: FALL HEAD INJURY Time Seen by Provider: 05/05/20 08:51 Source of Information: Reports: Patient History Limitations: Reports: No Limitations - History of Present Illness INITIAL COMMENTS - FREE TEXT/NARRATIVE: The patient presents with upper neck pain. She was up on a stool Tuesday changing a battery on a smoke detector and she fell backward and hit the back of her head and then some how the front of her head. She had no LOC. She has pain at the base of her skull and upper cervical spine. She has no numbness or weakness. She is on plavix. She has no fever, chills, cough, congestion, runny nose, chest pain, shortness of breath, abdominal pain, nausea or vomiting. Onset: Sudden Duration: Day(s): (Tuesday) Location: Reports: Head, Neck Quality: Reports: Ache Severity: Moderate Improves with: Reports: Immobilization Worsens with: Reports: Movement Context: Reports: Trauma (fell off of a stool) Associated Symptoms: Reports: No Other Symptoms Neck Pain Score (Numeric/FACES): 9 - Related Data Allergies Allergy/AdvReac Type Severity Reaction Status Date / Time dexamethasone [From TobraDex] Allergy Mild Cannot Verified 05/05/20 08:56 Remember tobramycin [From TobraDex] Allergy Mild Cannot Verified 05/05/20 08:56 Remember amlodipine besylate AdvReac Mild Muscle Verified 05/05/20 08:56 [From Lotrel] Weakness benazepril HCl [From Lotrel] AdvReac Mild Muscle Verified 05/05/20 08:56 Weakness ezetimibe [From Zetia] AdvReac Mild Muscle Verified 05/05/20 08:56 Weakness pravastatin sodium AdvReac Mild Muscle Verified 05/05/20 08:56 [From Pravachol] Weakness rosuvastatin calcium AdvReac Mild Muscle Verified 05/05/20 08:56 [From Crestor] Weakness simvastatin [From Zocor] AdvReac Mild Muscle Verified 05/05/20 08:56 Weakness Home Meds: Home Meds Calcium Carbonate [Calcium] 2 tab PO DAILY 05/05/15 [History] Donepezil [Aricept] 5 mg PO BEDTIME 05/05/15 [History] Hydrochlorothiazide 12.5 mg PO DAILY 09/14/15 [History] Multivitamins 1 tab PO DAILY 05/05/15 [History] metFORMIN [Glucophage] 1,000 mg PO BIDMEALS 05/05/15 [History] Sertraline [Zoloft] 50 mg PO DAILY tablet 05/07/15 [Rx] Metoprolol Succinate [Toprol XL] 50 mg PO BID 08/08/16 [History] Ascorbic Acid [Acerola C] 500 mg PO DAILY 11/10/17 [History] Aspirin [Halfprin] 81 mg PO DAILY #30 tab.ec 02/05/18 [Rx] Magnesium Oxide 400 mg PO BID #30 tablet 02/05/18 [Rx] Meloxicam 15 mg PO BEDTIME 05/05/20 [History] lisinopriL [Lisinopril] 10 mg PO DAILY 05/05/20 [History] Past Medical History HEENT History: Reports: Cataract, Impaired Vision Other HEENT History: 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 Cardiovascular History: Reports: Afib, Hypertension Other Cardiovascular History: pt famly reports that afib occured 27 years ago and has not had a problem since. Respiratory History: Reports: Other (See Below) Other Respiratory History: Positive Orthopnea - Moderate snoring Gastrointestinal History: Reports: Diverticulosis Other Gastrointestinal History: diverticulosis FINISHER MACHINE History: Reports: Musculoskeletal History: Reports: Osteoarthritis Neurological History: Reports: TIA Psychiatric History: Reports: Dementia Endocrine/Metabolic History: Reports: Diabetes, Type II Oncologic (Cancer) History: Reports: Breast - Past Surgical History HEENT Surgical History: Reports: Cataract Surgery Respiratory Surgical History: Reports: None GI Surgical History: Reports: None Musculoskeletal Surgical History: Reports: Shoulder Replacement Oncologic Surgical History: Reports: Mastectomy Social & Family History - Family History Family Medical History: Noncontributory - Caffeine Use Caffeine Use: Reports: None - Living Situation & Occupation Living situation: Reports: , Alone Occupation: Retired ED ROS GENERAL - Review of Systems Review Of Systems: See Below Constitutional: Reports: No Symptoms HEENT: Reports: No Symptoms Respiratory: Reports: No Symptoms Cardiovascular: Reports: No Symptoms Endocrine: Reports: No Symptoms GI/Abdominal: Reports: No Symptoms : Reports: No Symptoms Musculoskeletal: Reports: Neck Pain Skin: Reports: No Symptoms Neurological: Reports: Headache Psychiatric: Reports: No Symptoms ED EXAM, HEAD INJURY - Physical Exam Exam: See Below Exam Limited By: No Limitations General Appearance: Alert, No Apparent Distress Head: Other (Pain at the base of her skull and upper cervical spine) Ears: Normal External Exam Nose: Normal Inspection Throat/Mouth: Normal Inspection Respiratory: Other (Mild tenderness to the upper cervical spine) Cardiovascular: Regular Rate, Rhythm, No Edema, No Murmur GI/Abdominal Exam: Soft, Non-Tender, No Organomegaly, No Mass Back Exam: Normal Inspection Extremities: Normal Inspection Neurologic: No Motor/Sensory Deficits, Alert, Normal Mood/Affect, Oriented x 3 Course - Vital Signs Last Recorded V/S: Last Vital Signs Temp 97.2 F 05/05/20 08:49 Pulse 76 05/05/20 08:49 Resp 18 05/05/20 08:49 BP 172/81 H 05/05/20 08:49 Pulse Ox 98 05/05/20 08:49 - Orders/Labs/Meds Meds: Medications Discontinued Medications Generic Name Dose Route Start Last Admin Trade Name Freq PRN Reason Stop Dose Admin Acetaminophen 975 mg 05/05/20 11:50 05/05/20 11:55 Tylenol PO 05/05/20 11:51 975 mg NOW ONE Administration - Re-Assessments/Exams Free Text/Narrative Re-Assessment/Exam: 05/05/20 09:02 I have ordered a CT of her head and cervical spine. 05/05/20 12:[address] of her head shows nothing acute. Her CT of her cervical spine shows nondisplaced fracture involving the base of the dens of C2. Findings suspicious for rheumatoid arthritis, please correlate. Other degenerative change as noted above. No other acute finding is appreciated. I called [facility] in [place] and talked with Dr Wall and he wanted her into a c-color and he will see her on Tuesday. Departure - Departure Time of Disposition: 12:10 Disposition: Home, Self-Care 01 Condition: Good Clinical Impression: Fall Qualifiers: Encounter type: initial encounter Qualified Code(s): W19.XXXA - Unspecified fall, initial encounter C2 cervical fracture Qualifiers: Encounter type: initial encounter Fracture type: closed Fracture morphology: other fracture Fracture alignment: nondisplaced Qualified Code(s): S12.191A - Other nondisplaced fracture of second cervical vertebra, initial encounter for closed fracture - Discharge Information *PRESCRIPTION DRUG MONITORING PROGRAM REVIEWED*: Not Applicable *COPY OF PRESCRIPTION DRUG MONITORING REPORT IN PATIENT GORGE: Not Applicable Referrals: Matthew Rodriguez MD [Primary Care Provider] - Abrahan Randall MD [Ordering Only Provider] - 3 Days Forms: ED Department Discharge Additional Instructions: Take tylenol as needed for pain. Leave the C-color on. Follow up with Dr Lucero at [facility] in [place] on Tuesday. Call his office today to make the appointment. Please return if you are worse. Sepsis Event Note (ED) - Evaluation Sepsis Screening Result: No Definite Risk - Focused Exam Vital Signs: Vital Signs Temp Pulse Resp BP Pulse Ox 05/05/20 08:49 97.2 F 76 18 172/81 H 98
--- NOTE | 2020-05-05 09:18 | CT ---
Head CT Technique: Multiple axial sections through the brain were obtained. Intravenous contrast was not utilized. Comparison: Prior head CT study of 02/01/18. Findings: Ventricles along with basal cisterns and sulci with convexities are mildly prominent. Old lacunar infarct is again noted within the right basal ganglia. No other abnormal parenchymal densities are seen. No evidence of intracranial hemorrhage. No midline shift or mass-effect is appreciated. Bone window settings were reviewed. Visualized mastoid sinuses and visualized paranasal sinuses show nothing acute. No acute calvarial finding is seen. Impression: 1. Nothing acute is appreciated on noncontrast head CT study. Diagnostic code #2 This report was dictated in MDT
--- NOTE | 2020-05-05 09:24 | CT ---
CT cervical spine Technique: Multiple axial sections through the cervical spine were obtained. Comparison: No prior cervical spine imaging is available. Findings: Fracture is identified at the base of the dens of C1. Alignment remains anatomic. Cystic change is noted posteriorly at the level of the fracture line which appears to represent an old erosion raising the possibility of rheumatoid arthritis. No additional fracture is appreciated. Scattered degenerative change is noted within the apophyseal joints. Spondylolisthesis is noted at C4-5 which is due to degenerative apophyseal change. Severe disc space narrowing with endplate erosions are noted at C6-7 with minimal spondylolisthesis measuring about 3 mm. Spondylolisthesis is due to degenerative apophyseal change. Erosions appear old. Mild neural foraminal stenosis noted at C3-4. No other neural foraminal stenosis or central canal stenosis is seen. Impression: 1. Nondisplaced fracture involving the base of the dens of C2. 2. Findings suspicious for rheumatoid arthritis, please correlate. 3. Other degenerative change as noted above. No other acute finding is appreciated. Diagnostic code #5 This report was dictated in MDT
[2020-05-05] MEDS ORDERED: Acetaminophen 325 MG Tab PO ONE (11:50)
== END 2020-05-05 12:24 | disposition home or self-care (01) ==
LOC: JD.ED 08:42
DX: S12.191A Other nondisplaced fracture of second cervical vertebra, initial encounter for closed fracture (principal); I10 Essential (primary) hypertension; I48.91 Unspecified atrial fibrillation; F03.90 Unspecified dementia, unspecified severity, without behavioral disturbance, psychotic disturbance, mood disturbance, and anxiety; E11.9 Type 2 diabetes mellitus without complications; Z86.73 Personal history of transient ischemic attack (TIA), and cerebral infarction without residual deficits; Z88.1 Allergy status to other antibiotic agents; Z88.8 Allergy status to other drugs, medicaments and biological substances; Z79.899 Other long term (current) drug therapy; Z79.82 Long term (current) use of aspirin; W01.198A Fall on same level from slipping, tripping and stumbling with subsequent striking against other object, initial encounter
CPT/HCPCS: 70450; 72125; 99283; A9270